=== PATIENT | male | born 1950 | race Caucasian/White ===

== ENCOUNTER 2018-11-23 03:51 | Emergency (ER) | payer MEDICARE, OTHER, SELFPAY ==
[2018-11-23] VITALS (12 sets, daily range): BP systolic 121–149; BP diastolic 64–77; PULSE 57–76; RESP 10–17; TEMP 36.6; O2SAT 94–98; BMI 33.2
--- NOTE | 2018-11-23 03:51 | ED_ITS ---
HPI - Chest Pain General Chief Complaint: Chest Pain Stated Complaint: chest pain Time Seen by Provider: 11/23/18 03:51 Source: patient Mode of arrival: ambulatory Limitations: no limitations History of Present Illness HPI narrative: Patient is a 68-year-old male with a known history of coronary artery disease. Many years ago he had a ?heart attack? and had 2 stents placed. He states he has not had any issues since then. It has not seen a special education paraprofessional since he moved to this area. He states that his primary doctor's been managing his cardiac medications. He states that over the past several weeks he has no ticed increasing chest discomfort with exertion. He states that it gets better when he rests. He has noticed that since this time and has progressively come to the point to where it happens every time he is exercising. Yesterday he saw his primary care doctor to discuss this. His primary doctor has set him up for a stress test next . He was also instructed that if his symptoms ever came on it did not go away or if they happen when he was at rest he should come into the emergency department. He states that prior to coming in he was woken from sleep with chest pressure. He states that he took a nitro and the symptoms went away for approximately 15 minutes and then they returned. He took another nitro and again they went away but then came back. He took his last nitro in the car on the way here to the emergency department. He also took 162 mg of aspirin prior to arrival. By the time I evaluated the patient he was asymptomatic. Related Data Home Medications Medication Instructions Recorded Confirmed aspirin 81 mg tablet,delayed 81 mg PO BID tab 06/25/18 06/25/18 release atorvastatin 40 mg tablet 40 mg PO DAILY 06/25/18 06/25/18 fluticasone propionate 50 1 spray NASAL DAILY 06/25/18 06/25/18 mcg/actuation nasal spray,suspension levothyroxine 125 mcg capsule 125 mcg PO DAILY 06/25/18 06/25/18 lisinopril 5 mg tablet 5 mg PO DAILY 06/25/18 06/25/18 loratadine 10 mg tablet 10 mg PO DAILY 06/25/18 06/25/18 metoprolol tartrate 25 mg tablet 25 mg PO BID 06/25/18 06/25/18 nitroglycerin ER 9 mg 9 mg PO .PRN cap 06/25/18 06/25/18 capsule,extended release omeprazole 20 mg capsule,delayed 20 mg PO DAILY 06/25/18 06/25/18 release tamsulosin 0.4 mg capsule 0.4 mg PO DAILY 06/25/18 06/25/18 Allergies Allergy/AdvReac Type Severity Reaction Status Date / Time crab Allergy Verified 06/25/18 11:01 hydrocodone Allergy Verified 06/25/18 11:01 Iodinated Contrast- Oral and Allergy Verified 11/23/18 04:02 IV Dye oxycodone Allergy Verified 06/25/18 11:01 Review of Systems Constitutional Denies fatigue and Denies headache(s) ENT Ears, Nose, Mouth, and Throat: Denies headache(s) Cardiovascular Reports chest pain, Denies syncope, Denies rapid heart rate, Denies edema, Denies palpitations and Denies dyspnea Respiratory Denies dyspnea Gastrointestinal Gastrointestinal: Denies abdominal pain, Denies nausea and Denies vomiting Musculoskeletal Denies myalgias and Denies arthralgias Integumentary/Breasts Denies rash Neurologic Denies confusion, Denies syncope and Denies headache(s) Psychiatric Denies confusion Endocrine Denies fatigue and Denies palpitations Hematologic/Lymphatic Denies easy bleeding and Denies easy bruising [facility] Medical History Coronary artery disease (Acute) Hypothyroidism (acquired) (Acute) Social History Smoking Status: Never smoker Social History Smoking Status: Never smoker Exam Initial Vital Signs Initial Vital Signs: Vital Signs Temperature 97.8 F 11/23/18 03:57 Pulse Rate 76 11/23/18 03:57 Respiratory Rate 16 11/23/18 03:57 Blood Pressure 149/74 H 11/23/18 03:57 Const General: cooperative, comfortable, well developed, well groomed and No acute distress Orientation: alert, awake and oriented x3 HENMT Head: normal to inspection and normocephalic Resp Effort & Inspection: normal respiratory effort Auscultation: clear to auscultation bilaterally Cardio Rate: regular rate Rhythm: regular rhythm Pulses: radial pulses present GI Inspection: non-distended Palpation: soft Skin Lesions: no lesions Rashes: no rashes Neuro General: alert, awake and oriented x3 Cognition: normal cognition Speech: speech normal Motor: muscle tone normal throughout Extrem General: normal to inspection and capillary refill normal Psych Appearance: grossly normal and well kempt Scores GCS Alejandro coma scale eye opening: Spontaneous [place] coma scale verbal response: Orientated [place] coma scale motor response: Obey commands Alejandro coma scale total score: 15 HEART Score Heart Score history: Highly Suspicious Heart Score EKG: Normal Heart Score Age: > or = 65 years old Heart Score risk factors: > 3 risk factors or hx of atherosclerotic disease Heart Score troponin: 1-3 times normal limit Heart Score Total: 7 Course Orders Ordered: ED Orders 11/23/18 03:53 XR chest 1V Stat EKG-12 Lead Stat 11/23/18 04:11 Basic Metabolic Panel Stat Complete Blood Count AUTO DIFF Stat Partial Thromboplastin Time Stat Prothrombin Time INR Stat Troponin I Stat Heparin Sodium/Dextrose (Heparin Drip) 25,000 unit in 500 mls @ 20 mls/hr IV CONT LAZARO; Protocol Last Admin: 11/23/18 05:15 Dose: 1,000 units/hr, 20 mls/hr Discontinued Medications Clopidogrel Bisulfate (Plavix) 300 mg PO NOW ONE Stop: 11/23/18 05:28 Heparin Sodium (Porcine) (Heparin) 5,000 unit IV NOW ONE Stop: 11/23/18 05:06 Last Admin: 11/23/18 05:15 Dose: 5,000 unit Metoprolol Tartrate (Lopressor) 25 mg PO NOW ONE Stop: 11/23/18 05:28 Vital Signs - 8 hr 11/23/18 03:57 11/23/18 04:30 11/23/18 05:03 Temperature 97.8 F 97.8 F Pulse Rate 76 67 67 Respiratory Rate 16 11 L 11 L Blood Pressure 149/74 H 149/74 H Blood Pressure [Left Arm] 121/69 Pulse Oximetry 97 97 11/23/18 05:26 Temperature Pulse Rate 63 Respiratory Rate 10 L Blood Pressure Blood Pressure [Left Arm] 145/70 H Pulse Oximetry 96 MDM - Chest Pain Lab Data Attestation: I reviewed the patient's lab results. Result diagrams: 11/23/18 04:11 11/23/18 04:11 Lab Results 11/23/18 11/23/18 11/23/18 Range/Units 04:11 04:11 04:11 WBC 7.4 (4.5-11.0) X10^3/uL RBC 4.97 (4.5-5.9) X10^6/uL Hgb 15.0 (13.5-17.5) g/dL Hct 43.3 (41-53) % MCV 87.2 (80-100) fL MCH 30.2 (26-34) PG MCHC 34.7 (30-36) % RDW 13.3 (11.6-14.8) % Plt Count 241 (150-400) X10^3/uL Neut % (Auto) 65.8 (50-75) % Lymph % (Auto) 24.9 L (25-40) % [place] % (Auto) 6.8 (3-14) % Eos % (Auto) 1.7 L (2-4) % Baso % (Auto) 0.8 (0-2) % Neut # (Auto) 4800 (6548-5242) /uL Lymph # (Auto) 1800 (5930-6383) /uL [place] # (Auto) 500 (0-900) /uL Eos # (Auto) 100 (0-450) /uL Baso # (Auto) 100 (0-100) /uL PT 11.8 (10.1-12.7) SECONDS INR 1.0 (0.9-1.3) APTT 31 (26.4-36.2) SECONDS Sodium 138 (137-145) mmol/L Potassium 3.8 (3.4-5.1) mmol/L Chloride 102 (98-107) mmol/L Carbon Dioxide 26 (22-32) mmol/L BUN 10 (9-20) mg/dL Creatinine 0.70 (0.66-1.25) mg/dL Estimated GFR > 60.0 (>60) mL/min BUN/Creatinine Ratio 14.3 (6-22) Glucose 166 H (80-110) mg/dL Calcium 9.3 (8.4-10.2) mg/dL Troponin I 0.057 H (0.01-0.034) ng/mL Imaging Data Chest x-ray: Attestation: I personally reviewed and interpreted this imaging study as follows: My impression: Normal size heart No pneumonia No acute pathology ECG Data Attestation: I personally reviewed and interpreted this ECG as follows: Prior ECG tracings: not available for review Interpretation: Sinus rhythm Ventricular rate is 74 Normal axis Normal QRS Normal QTC No ST T wave changes MDM Narrative Medical decision making narrative: Patient receive aspirin prior to arrival. He was chest pain-free when I evaluated him and has remained chest pain-free throughout his emergency department stay. His symptoms are concerning for ACS. He has essentially been giving himself stress test by exerting himself which causes the discomfort and then symptoms resolved when he stops. His troponin is slightly elevated. Given his history and his physical exam is elevated troponin patient was started on heparin. He has no ST elevations on his EKG. I discussed the case with Dr. Hopkins with Cardiology at [facility] who agrees to see the patient. He recommended starting the patient on Plavix and giving a dose of metoprolol which were ordered. I then discussed the case with Dr. Jasso with Internal Medicine who accepts the patient in transport. Patient is stable for transfer. I discussed transfer with the patient and his who is at bedside and they both expressed understanding and agreement. Discharge Plan Departure Patient Disposition: [facility] Clinical Impression: Non-ST elevation SC (NSTEMI) Prescriptions: No Action atorvastatin 40 mg tablet 40 mg PO DAILY RF: 0 aspirin [Adult Aspirin Regimen] 81 mg tablet,delayed release (DR/EC) 81 mg PO BID RF: 0 nitroglycerin 9 mg capsule, extended release 9 mg PO .PRN RF: 0 tamsulosin 0.4 mg capsule 0.4 mg PO DAILY RF: 0 omeprazole 20 mg capsule,delayed release(DR/EC) 20 mg PO DAILY RF: 0 lisinopril 5 mg tablet 5 mg PO DAILY RF: 0 fluticasone propionate [Flonase Allergy Relief] 50 mcg/actuation spray,suspension 1 spray NASAL DAILY RF: 0 loratadine [Allergy Relief (loratadine)] 10 mg tablet 10 mg PO DAILY RF: 0 metoprolol tartrate 25 mg tablet 25 mg PO BID RF: 0 levothyroxine 125 mcg capsule 125 mcg PO DAILY RF: 0
--- NOTE | 2018-11-23 03:53 | DI.RAD.S_ITS ---
PROCEDURE: XR CHEST 1V INDICATIONS: Chest pain TECHNIQUE: One view of the chest was acquired. COMPARISON: None. FINDINGS: Surgical changes and devices: None. Lungs and pleura: Lungs are clear. No pleural effusions or pneumothorax. Mediastinum: Mediastinal contours appear normal. Heart size is normal. Bones and chest wall: No suspicious bony lesions. Overlying soft tissues appear unremarkable. IMPRESSION: 1. No acute cardiopulmonary disease. Dictated by: Marcos Webster M.D. on 11/23/2018 at 9:31 Approved by: Marcos Webster M.D. on 11/23/2018 at 9:31
[2018-11-23 04:19] LABS: Add Manual Diff / Slide Review NO; Basophils Absolute Auto 100 /uL (0-100); Basophils Percent Auto 0.8 % (0-2); Eosinophils Absolute Auto 100 /uL (0-450); Eosinophils Percent Auto 1.7 % (2-4); Hematocrit 43.3 % (41-53); Lymphocytes Absolute Auto 1800 /uL (1100-4500); Lymphocytes Percent Auto 24.9 % (25-40); Mean Corpuscular HGB Conc 34.7 % (30-36); Mean Corpuscular Hemoglobin 30.2 PG (26-34); Mean Corpuscular Volume 87.2 fL (80-100); Monocytes Absolute Auto 500 /uL (0-900); Monocytes Percent Auto 6.8 % (3-14); Neutrophils Absolute Auto 4800 /uL (1500-7000); Neutrophils Percent Auto 65.8 % (50-75); Platelet Count 241 X10^3/uL (150-400); Red Blood Cell Count 4.97 X10^6/uL (4.5-5.9); Red Cell Distribution Width 13.3 % (11.6-14.8); White Blood Cell Count 7.4 X10^3/uL (4.5-11.0)
[2018-11-23 04:20] LABS: Prothrombin Time 11.8 SECONDS (10.1-12.7)
[2018-11-23 04:23] LABS: PTT Partial Thromboplastin Tim 31 SECONDS (26.4-36.2)
[2018-11-23 04:24] LABS: BUN Creatinine Ratio 14.3 (6-22); Blood Urea Nitrogen 10 mg/dL (9-20); Calcium 9.3 mg/dL (8.4-10.2); Carbon Dioxide 26 mmol/L (22-32); Chloride 102 mmol/L (98-107); Estimated Glomerular Filt Rate > 60.0 mL/min (>60); Glucose 166 mg/dL (80-110); HEMOLYSIS < 15 (0-50); Potassium 3.8 mmol/L (3.4-5.1); Sodium 138 mmol/L (137-145)
[2018-11-23 04:36] LABS: Troponin I 0.057 ng/mL (0.01-0.034)
[2018-11-23] MEDS: HEPARIN DRIP 25,000 UNIT/500 ML IV.SOLN 20 UNIT IV (05:15)
[2018-11-23] MEDS: HEPARIN 5,000 UNIT/ML VIAL 5000 UNIT IV (05:15)
[2018-11-23] MEDS: METOPROLOL IR 25 MG TABLET PO (05:31)
[2018-11-23] MEDS: CLOPIDOGREL 75 MG TABLET 300 MG PO (05:32)
--- NOTE | 2018-11-23 09:28 | PC.NURSE ---
Called [facility] at 0915 to give report and it is relayed that the nurse will call you back.
== END 2018-11-23 09:20 | disposition short-term general hospital (02) ==
PROVIDERS: Emergency Provider Emergency Medicine
DX: I21.4 Non-ST elevation (NSTEMI) myocardial infarction (principal); Z96.89 Presence of other specified functional implants
CPT/HCPCS: 36591; 71045; 80048; 84484; 85025; 85610; 85730; 93005; 96365; 96366; 96376; 99285; J1644

== ENCOUNTER → 2019-04-01 10:32 | Outpatient (CLI) | payer MEDICARE, OTHER, SELFPAY ==
[2019-04-01 11:24] LABS: Add Manual Diff / Slide Review NO; Basophils Absolute Auto 0 /uL (0-100); Basophils Percent Auto 0.6 % (0-2); Eosinophils Absolute Auto 100 /uL (0-450); Eosinophils Percent Auto 1.1 % (2-4); Hematocrit 46.9 % (41-53); Lymphocytes Absolute Auto 1500 /uL (1100-4500); Mean Corpuscular HGB Conc 34.1 % (30-36); Mean Corpuscular Hemoglobin 29.5 PG (26-34); Mean Corpuscular Volume 86.4 fL (80-100); Monocytes Absolute Auto 500 /uL (0-900); Monocytes Percent Auto 7.8 % (3-14); Neutrophils Absolute Auto 4000 /uL (1500-7000); Neutrophils Percent Auto 66.5 % (50-75); Platelet Count 256 X10^3/uL (150-400); Red Blood Cell Count 5.43 X10^6/uL (4.5-5.9); Red Cell Distribution Width 13.5 % (11.6-14.8); White Blood Cell Count 6.1 X10^3/uL (4.5-11.0)
[2019-04-01 12:02] LABS: Alanine Aminotransferase 27 IU/L (21-72); Albumin 4.4 g/dL (3.5-5.0); Albumin Globulin Ratio 1.6 (1.0-2.8); Alkaline Phosphatase 124 U/L (38-126); Aspartate Aminotransferase 23 IU/L (17-59); BUN Creatinine Ratio 17.1 (6-22); Bilirubin Total 0.9 mg/dL (0.2-1.3); Blood Urea Nitrogen 12 mg/dL (9-20); Calcium 9.8 mg/dL (8.4-10.2); Carbon Dioxide 27 mmol/L (22-32); Chloride 100 mmol/L (98-107); Cholesterol 105 mg/dL (140-199); Estimated Glomerular Filt Rate > 60.0 mL/min (>60); Globulin 2.7 g/dL (1.7-4.1); Glucose 106 mg/dL (80-110); HDL Cholesterol 29 mg/dL (40-60); HEMOLYSIS < 15 (0-50); LDL Cholesterol Calculated 54 mg/dL (<100); Sodium 140 mmol/L (137-145); Total Protein 7.1 g/dL (6.3-8.2); Triglycerides 108 mg/dL (35-150)
[2019-04-01 12:33] LABS: Thyroid Stimulating Hormone < 0.02 uIU/mL (0.47-4.68)
== END ==
PROVIDERS: Visit Provider Hospitalist
DX: E03.9 Hypothyroidism, unspecified (principal); I25.10 Atherosclerotic heart disease of native coronary artery without angina pectoris; E11.9 Type 2 diabetes mellitus without complications
CPT/HCPCS: 36415; 80053; 80061; 83036; 84443; 85025

== ENCOUNTER → 2019-04-30 11:09 | Outpatient (CLI) | payer MEDICARE, OTHER, SELFPAY ==
[2019-04-30 13:15] LABS: Thyroid Stimulating Hormone 0.03 uIU/mL (0.47-4.68)
== END ==
PROVIDERS: Visit Provider Hospitalist
DX: E03.9 Hypothyroidism, unspecified (principal); R94.6 Abnormal results of thyroid function studies
CPT/HCPCS: 36415; 84443

== ENCOUNTER → 2019-06-09 07:13 | Outpatient (CLI) | payer MEDICARE, OTHER, SELFPAY ==
[2019-06-09 09:07] LABS: Thyroid Stimulating Hormone 0.32 uIU/mL (0.47-4.68)
== END ==
PROVIDERS: PCP Nurse Practitioner Family; Visit Provider Nurse Practitioner Family
DX: E03.9 Hypothyroidism, unspecified (principal)
CPT/HCPCS: 36415; 84443

== ENCOUNTER → 2019-07-08 10:41 | Outpatient (CLI) | payer MEDICARE, OTHER, SELFPAY ==
[2019-07-08 12:36] LABS: TSH w/ Reflex to FT4 0.59 uIU/mL (0.47-4.68); Thyroid Stimulating Hormone 0.58 uIU/mL (0.47-4.68)
== END ==
PROVIDERS: Nurse Practitioner Family; PCP Family Medicine; Visit Provider Family Medicine
DX: E03.9 Hypothyroidism, unspecified (principal)
CPT/HCPCS: 36415; 84443

== ENCOUNTER 2019-09-10 08:03 | Emergency (ER) | payer MEDICARE, OTHER, SELFPAY ==
[2019-09-10 08:00] VITALS: BP 166/87; PULSE 110; RESP 19; TEMP 37; O2SAT 97
[2019-09-10 08:18] LABS: Bacteria Urine None Seen; RBC Urine None Seen (0-5/HPF); WBC Urine None Seen (0-5/HPF)
[2019-09-10 08:19] LABS: Appearance Urine UA CLEAR; Bilirubin Urine UA NEGATIVE (NEGATIVE); Color Urine UA YELLOW; Glucose Urine UA NEGATIVE (Negative); Ketones Urine UA NEGATIVE (NEGATIVE); Leukocyte Esterase Urine UA NEGATIVE (NEGATIVE); Nitrite Urine UA NEGATIVE (Negative); Occult Blood Urine UA TRACE-LYSED (Negative); Protein Urine UA NEGATIVE (Negative); Urobilinogen Urine UA 0.2 E.U./dL (0.2); pH Urine UA 7.5 (4.5-8.0)
--- NOTE | 2019-09-10 08:19 | ED_ITS ---
HPI - General Adult General Chief complaint: Hypertension Stated complaint: HTN Time Seen by Provider: 09/10/19 08:04 Source: patient Mode of arrival: Ambulatory Limitations: no limitations History of Present Illness HPI narrative: 68-year-old male with a history of hypertension coronary artery disease. Had 1 prior episode of atrial fibrillation after knee surgery that was converted with medication. Is on Brilinta. States that he woke up this morning he was lying on his right-sided hurt his pulse in his right ear. He states that it felt like it was fast. He went took his blood pressure. Was elevated also states that his heart rate was in the 130s. No chest pain. No shortness of breath. He normally takes is blood pressure medicine in the morning. Called EMS him in for evaluation. Related Data Home Medications Medication Instructions Recorded Confirmed aspirin 81 mg tablet,delayed 81 mg PO BID tab 06/25/18 07/08/19 release fluticasone propionate 50 1 spray NASAL DAILY 06/25/18 07/08/19 mcg/actuation nasal spray,suspension loratadine 10 mg tablet 10 mg PO DAILY 06/25/18 07/08/19 atorvastatin 80 mg tablet 80 mg PO BEDTIME 04/01/19 07/08/19 lisinopril 10 mg tablet 10 mg PO DAILY 04/01/19 07/08/19 nitroglycerin 0.4 mg sublingual 0.4 mg SL Q5-15M PRN 04/01/19 07/08/19 tablet ticagrelor 90 mg tablet 90 mg PO BID 04/01/19 07/08/19 metoprolol tartrate 25 mg tablet 25 mg PO DAILY tab 07/08/19 07/08/19 Previous Rx's Medication Instructions Recorded omeprazole 20 mg capsule,delayed 20 mg PO DAILY #30 cap 04/01/19 release levothyroxine 75 mcg tablet 75 mcg PO DAILY #90 tab 08/06/19 Allergies Allergy/AdvReac Type Severity Reaction Status Date / Time crab Allergy Verified 07/08/19 09:54 hydrocodone Allergy Verified 07/08/19 09:54 Iodinated Contrast Media Allergy Verified 07/08/19 09:54 oxycodone Allergy Verified 07/08/19 09:54 Review of Systems Constitutional Constitutional: Denies fever(s) and Denies headache(s) ENT Ears, Nose, Mouth, and Throat: Denies headache(s) Cardiovascular Cardiovascular: Denies chest pain, Reports rapid heart rate, Denies irregular heart rhythm, Reports palpitations, Denies dyspnea and Denies dyspnea on exertion Respiratory Respiratory: Denies dyspnea and Denies dyspnea on exertion Gastrointestinal Gastrointestinal: Denies abdominal pain, Denies nausea and Denies vomiting Musculoskeletal Musculoskeletal: Denies myalgias and Denies arthralgias Integumentary/Breasts Skin/Breast: Denies rash Neurologic Neurologic: Denies behavioral changes and Denies headache(s) Psychiatric Psychiatric: Denies behavioral changes Endocrine Endocrine: Reports palpitations Patient History Medical History Acne (Inactive) Actinic keratosis (Chronic ~2014) Ankylosing spondylitis (Acute) Chicken pox (Resolved) Chronic back pain (Chronic ~1974) Coronary artery disease (Acute) GERD (gastroesophageal reflux disease) (Chronic ~1999) Hearing loss (Chronic ~1970) Heel spur (Chronic ~2018) Hemorrhoid (Inactive ~1989) Hypothyroidism (acquired) (Acute) Osteoarthritis (Chronic ~2009) Plantar warts (Inactive) Seasonal allergies (Chronic ~1950) Tinnitus (Chronic ~1970) Vertigo (Inactive ~2010) Vision disorder (Chronic) Family History (Updated 04/30/19 @ 21:53 by Johnna Orantes) Mother Hypertension History of heart disease Dementia Father Hypertension History of heart disease Sister Diabetes mellitus Grandfather History of heart disease Grandmother History of heart disease Social History Smoking Status: Never smoker Smoking Status: Never smoker alcohol intake frequency: 0-2 drinks per day Substance Use Type: does not use Exam Initial Vital Signs Initial Vital Signs: Vital Signs Temperature 98.6 F 09/10/19 08:00 Pulse Rate 110 H 09/10/19 08:00 Respiratory Rate 19 09/10/19 08:00 Blood Pressure 166/87 H 09/10/19 08:00 Pulse Oximetry 97 09/10/19 08:00 Const General: cooperative and comfortable Limitations: mental status not altered Resp Effort & Inspection: normal respiratory effort Auscultation: clear to auscultation bilaterally Cardio Rate: tachycardic Rhythm: regular rhythm Pulses: radial pulses present GI Inspection: non-distended Palpation: soft Skin Lesions: no lesions Rashes: no rashes Neuro General: alert and awake Cognition: normal cognition Speech: speech normal Motor: muscle tone normal throughout Extrem General: capillary refill normal Psych Appearance: grossly normal and well kempt Scores GCS Alejandro coma scale eye opening: Spontaneous [place] coma scale verbal response: Orientated [place] coma scale motor response: Obey commands [place] coma scale total score: 15 Course Orders Ordered: ED Orders 09/10/19 08:05 EKG-12 Lead Stat 09/10/19 08:08 Urinalysis and Microscopic Stat 09/10/19 08:18 Complete Blood Count AUTO DIFF Stat Comprehensive Metabolic Panel Stat Lipase Stat Troponin I Stat Discontinued Medications Lisinopril (Zestril) 10 mg PO NOW ONE Stop: 09/10/19 08:21 Last Admin: 09/10/19 08:29 Dose: 10 mg Documented by: PEGGY Metoprolol Succinate (Toprol Xl) 25 mg PO NOW ONE Stop: 09/10/19 08:21 Last Admin: 09/10/19 08:29 Dose: 25 mg Documented by: PEGGY Vital Signs Vital signs: Vital Signs - 8 hr 09/10/19 08:00 09/10/19 09:02 09/10/19 09:03 Temperature 98.6 F Pulse Rate 110 H 103 H 109 H Respiratory Rate 19 18 Blood Pressure 166/87 H 158/78 H Blood Pressure [Left Arm] 154/78 H Pulse Oximetry 97 96 Medical Decision Making Lab Data Lab results reviewed: Yes I reviewed the patient's lab results. Result diagrams: 09/10/19 08:18 09/10/19 08:18 Labs: Lab Results 09/10/19 09/10/19 09/10/19 Range/Units 08:08 08:18 08:18 WBC 9.5 (4.5-11.0) X10^3/uL RBC 5.37 (4.5-5.9) X10^6/uL Hgb 16.2 (13.5-17.5) g/dL Hct 47.5 (41-53) % MCV 88.4 (80-100) fL MCH 30.2 (26-34) PG MCHC 34.1 (30-36) % RDW 14.2 (11.6-14.8) % Plt Count 232 (150-400) X10^3/uL Neut % (Auto) 86.1 H (50-75) % Lymph % (Auto) 6.8 L (25-40) % [place] % (Auto) 6.7 (3-14) % Eos % (Auto) 0.1 L (2-4) % Baso % (Auto) 0.3 (0-2) % Neut # (Auto) 8200 H (1776-1887) /uL Lymph # (Auto) 600 L (6857-7309) /uL [place] # (Auto) 600 (0-900) /uL Eos # (Auto) 0 (0-450) /uL Baso # (Auto) 0 (0-100) /uL Sodium 143 (137-145) mmol/L Potassium 3.9 (3.4-5.1) mmol/L Chloride 105 (98-107) mmol/L Carbon Dioxide 25 (22-32) mmol/L BUN 12 (9-20) mg/dL Creatinine 0.70 (0.66-1.25) mg/dL Estimated GFR > 60.0 (>60) mL/min BUN/Creatinine Ratio 17.1 (6-22) Glucose 129 H (80-110) mg/dL Calcium 10.1 (8.4-10.2) mg/dL Total Bilirubin 0.7 (0.2-1.3) mg/dL AST 33 (17-59) IU/L ALT 27 (<50) IU/L Alkaline Phosphatase 98 (38-126) U/L Troponin I < 0.012 (0.01-0.034) ng/mL Total Protein 8.0 (6.3-8.2) g/dL Albumin 4.7 (3.5-5.0) g/dL Globulin 3.3 (1.7-4.1) g/dL Albumin/Globulin Ratio 1.4 (1.0-2.8) Lipase 80 (23-300) U/L Urine Color Yellow Urine Appearance Clear Urine pH 7.5 (4.5-8.0) Ur Specific [place] 1.010 (1.000-1.035) Urine Protein Negative (Negative) Urine Glucose (UA) Negative (Negative) g/dL Urine Ketones Negative (NEGATIVE) Urine Occult Blood Trace-lysed (Negative) Urine Nitrate Negative (Negative) Urine Bilirubin Negative (NEGATIVE) Urine Urobilinogen 0.2 (0.2) E.U./dL Ur Leukocyte Esterase Negative (NEGATIVE) Urine RBC None seen (0-5/HPF) Urine WBC None seen (0-5/HPF) Urine Bacteria None seen (None) Ur Culture Indicated? Cult not indicated Micro UA Comment Microscopic normal ECG Data Attestation: I personally reviewed and interpreted this ECG as follows: Prior ECG tracings: not available for review Interpretation: Sinus tachycardia Ventricular rate of 107 First degree AV block P.r.n. oval 212 milliseconds Left axis deviation Normal QRS Normal QTC No ST T wave changes MDM Narrative Medical decision making narrative: Patient is slightly tachycardic however not in atrial fibrillation. He was hypertensive upon arrival. He did not take his morning blood pressure medications. He was given his metoprolol and lisinopril. This did decrease his heart rate and his blood pressure. Labs unremarkable. Low suspicion for ACS. We did discuss that he should talk with his primary provider and also his specification writer to see whether not a Holter monitor would be appropriate. He expressed understanding and agreement with plan. Discharge Plan Departure Patient Disposition: Home Clinical Impression: Palpitations Hypertension Qualifiers: Hypertension type: unspecified Qualified Code(s): I10 - Essential (primary) hypertension Instructions: DI for High Blood Pressure Activity Restrictions/Additional Instructions: Continue to take all of your medications as directed. Contact your primary provider for a follow-up. Talk with your specification writer about the indications for a Holter monitor. Return to the emergency department for any new or worsening symptoms Prescriptions: No Action aspirin [Adult Aspirin Regimen] 81 mg tablet,delayed release (DR/EC) 81 mg PO BID RF: 0 fluticasone propionate [Flonase Allergy Relief] 50 mcg/actuation spray,suspension 1 spray NASAL DAILY RF: 0 loratadine [Allergy Relief (loratadine)] 10 mg tablet 10 mg PO DAILY RF: 0 metoprolol tartrate 25 mg tablet 25 mg PO DAILY RF: 0 levothyroxine 75 mcg tablet 75 mcg PO DAILY Qty: 90 RF: 1 atorvastatin 80 mg tablet 80 mg PO BEDTIME RF: 0 Brilinta 90 mg tablet 90 mg PO BID RF: 0 lisinopril 10 mg tablet 10 mg PO DAILY RF: 0 nitroglycerin 0.4 mg tablet, sublingual 0.4 mg SL Q5-15M PRNRF: 0 omeprazole 20 mg capsule,delayed release(DR/EC) 20 mg PO DAILY Qty: 30 RF: 0 Referrals: Nolan Smith, [Primary Care Provider] -
[2019-09-10 08:29] LABS: Add Manual Diff / Slide Review NO; Basophils Absolute Auto 0 /uL (0-100); Basophils Percent Auto 0.3 % (0-2); Eosinophils Absolute Auto 0 /uL (0-450); Eosinophils Percent Auto 0.1 % (2-4); Hematocrit 47.5 % (41-53); Hemoglobin 16.2 g/dL (13.5-17.5); Lymphocytes Absolute Auto 600 /uL (1100-4500); Lymphocytes Percent Auto 6.8 % (25-40); Mean Corpuscular HGB Conc 34.1 % (30-36); Mean Corpuscular Hemoglobin 30.2 PG (26-34); Mean Corpuscular Volume 88.4 fL (80-100); Monocytes Absolute Auto 600 /uL (0-900); Monocytes Percent Auto 6.7 % (3-14); Neutrophils Absolute Auto 8200 /uL (1500-7000); Neutrophils Percent Auto 86.1 % (50-75); Platelet Count 232 X10^3/uL (150-400); Red Blood Cell Count 5.37 X10^6/uL (4.5-5.9); Red Cell Distribution Width 14.2 % (11.6-14.8); White Blood Cell Count 9.5 X10^3/uL (4.5-11.0)
[2019-09-10] MEDS: METOPROLOL ER 25 MG TABLET PO (08:29)
[2019-09-10] MEDS: lisinopriL 10 MG TABLET PO (08:29)
[2019-09-10 08:36] LABS: Culture Indicated Urine Cult Not Indicated; Urine Comments Microscopic Normal
[2019-09-10 08:40] LABS: Alanine Aminotransferase 27 IU/L (<50); Albumin 4.7 g/dL (3.5-5.0); Albumin Globulin Ratio 1.4 (1.0-2.8); Alkaline Phosphatase 98 U/L (38-126); Aspartate Aminotransferase 33 IU/L (17-59); BUN Creatinine Ratio 17.1 (6-22); Bilirubin Total 0.7 mg/dL (0.2-1.3); Blood Urea Nitrogen 12 mg/dL (9-20); Calcium 10.1 mg/dL (8.4-10.2); Carbon Dioxide 25 mmol/L (22-32); Chloride 105 mmol/L (98-107); Estimated Glomerular Filt Rate > 60.0 mL/min (>60); Globulin 3.3 g/dL (1.7-4.1); Glucose 129 mg/dL (80-110); HEMOLYSIS < 15 (0-50); Lipase 80 U/L (23-300); Potassium 3.9 mmol/L (3.4-5.1); Sodium 143 mmol/L (137-145)
[2019-09-10 08:51] LABS: Troponin I < 0.012 ng/mL (0.01-0.034)
[2019-09-10 09:02] VITALS: BP 158/78; PULSE 103
[2019-09-10 09:03] VITALS: BP 154/78; PULSE 109; RESP 18; O2SAT 96
[2019-09-10 09:30] VITALS: BP 134/69; PULSE 93; RESP 16; O2SAT 94
== END 2019-09-10 09:31 | disposition home or self-care (01) ==
PROVIDERS: Emergency Provider Emergency Medicine; PCP Family Medicine
DX: I10 Essential (primary) hypertension (principal); R00.2 Palpitations
CPT/HCPCS: 36415; 80053; 81001; 83690; 84484; 85025; 93005; 99284

== ENCOUNTER → 2019-09-11 10:09 | Outpatient (CLI) | payer MEDICARE, OTHER, SELFPAY ==
[2019-09-11 12:14] LABS: TSH w/ Reflex to FT4 0.65 uIU/mL (0.47-4.68)
== END ==
PROVIDERS: PCP Family Medicine; Referring Provider Family Medicine; Visit Provider Family Medicine
DX: E03.9 Hypothyroidism, unspecified (principal)
CPT/HCPCS: 36415; 84443

== ENCOUNTER → 2019-12-01 13:12 | Outpatient (CLI) | payer MEDICARE, OTHER, SELFPAY ==
[2019-12-01 15:23] LABS: TSH w/ Reflex to FT4 1.37 uIU/mL (0.47-4.68)
== END ==
PROVIDERS: PCP Family Medicine; Referring Provider Family Medicine; Visit Provider Family Medicine
DX: Z12.5 Encounter for screening for malignant neoplasm of prostate (principal); E03.9 Hypothyroidism, unspecified
CPT/HCPCS: 36415; 84153; 84443; G0103

== ENCOUNTER → 2020-01-09 09:11 | Outpatient (CLI) | payer MEDICARE, OTHER, SELFPAY ==
[2020-01-09 10:15] LABS: Hemoglobin A1C% w Est Avg Glu 6.3 % (4.0-6.0)
[2020-01-09 10:23] LABS: Alanine Aminotransferase 30 IU/L (<50); Albumin 4.5 g/dL (3.5-5.0); Albumin Globulin Ratio 1.6 (1.0-2.8); Alkaline Phosphatase 66 U/L (38-126); Aspartate Aminotransferase 33 IU/L (17-59); BUN Creatinine Ratio 24.2 (6-22); Bilirubin Total 0.6 mg/dL (0.2-1.3); Blood Urea Nitrogen 15 mg/dL (9-20); Calcium 9.8 mg/dL (8.4-10.2); Carbon Dioxide 30 mmol/L (22-32); Chloride 101 mmol/L (98-107); Estimated Glomerular Filt Rate > 60.0 mL/min (>60); Globulin 2.8 g/dL (1.7-4.1); Glucose 116 mg/dL (80-110); HEMOLYSIS < 15 (0-50); Potassium 4.2 mmol/L (3.4-5.1); Sodium 137 mmol/L (137-145); Total Protein 7.3 g/dL (6.3-8.2)
[2020-01-09 10:38] LABS: Free T4, Direct Thyroxine 0.84 ng/dL (0.78-2.19)
[2020-01-09 10:52] LABS: Thyroid Stimulating Hormone 1.51 uIU/mL (0.47-4.68)
== END ==
PROVIDERS: PCP Family Medicine; Referring Provider Family Medicine; Visit Provider Family Medicine
DX: B35.9 Dermatophytosis, unspecified (principal); R73.9 Hyperglycemia, unspecified
CPT/HCPCS: 36415; 80053; 83036; 84439; 84443

== ENCOUNTER → 2020-05-04 09:22 | Outpatient (CLI) | payer MEDICARE, OTHER, SELFPAY ==
[2020-05-04 11:12] LABS: Alanine Aminotransferase 39 IU/L (<50); Albumin 4.3 g/dL (3.5-5.0); Albumin Globulin Ratio 1.5 (1.0-2.8); Alkaline Phosphatase 70 U/L (38-126); Aspartate Aminotransferase 41 IU/L (17-59); BUN Creatinine Ratio 20.3 (6-22); Bilirubin Total 0.6 mg/dL (0.2-1.3); Blood Urea Nitrogen 14 mg/dL (9-20); Calcium 9.6 mg/dL (8.4-10.2); Carbon Dioxide 30 mmol/L (22-32); Chloride 102 mmol/L (98-107); Cholesterol 122 mg/dL (140-199); Estimated Glomerular Filt Rate > 60.0 mL/min (>60); Globulin 2.8 g/dL (1.7-4.1); Glucose 118 mg/dL (80-110); HDL Cholesterol 27 mg/dL (40-60); HEMOLYSIS < 15 (0-50); LDL Cholesterol Calculated 60 mg/dL (<100); Potassium 4.1 mmol/L (3.4-5.1); Sodium 139 mmol/L (137-145); Total Protein 7.1 g/dL (6.3-8.2); Triglycerides 175 mg/dL (35-150)
== END ==
PROVIDERS: PCP Family Medicine; Referring Provider Internal Medicine Cardiovascular Disease; Visit Provider Internal Medicine Cardiovascular Disease
DX: E78.5 Hyperlipidemia, unspecified (principal)
CPT/HCPCS: 36415; 80053; 80061

== ENCOUNTER → 2020-06-01 13:31 | Outpatient (CLI) | payer MEDICARE, OTHER, SELFPAY ==
--- NOTE | 2020-06-01 13:33 | DI.RAD.S_ITS ---
PROCEDURE: XR CERVICAL SPINE 2V OR 3V INDICATIONS: Progressive neck pain TECHNIQUE: 3 view(s) of the cervical spine were acquired. COMPARISON: None. FINDINGS: Bones: No fractures or dislocations to the T1 level. Note is made of anterior bridging osteophytes, partial or complete, between C2 and C7. The osseous bridging is more prominent over the lower half of the cervical spine. The lateral masses of C1 appear intact on the odontoid view. No suspicious bony lesions. Soft tissues: No prevertebral soft tissue swelling. IMPRESSION: Bridging osteophytes as discussed, which increases risk of significant spinal column fracture in the area of immobility in the setting of trauma. Ankylosing spondylitis is not present but rather DISH is the likely cause. As discussed this pattern of reduced mobility along the cervical spine does increase risk of significant fracture in the setting of trauma. No trauma is currently seen. Dictated by: Ernie Lane M.D. on 06/01/2020 at 14:13 Approved by: Ernie Lane M.D. on 06/01/2020 at 14:15
--- NOTE | 2020-06-01 13:33 | DI.RAD.S_ITS ---
PROCEDURE: XR LUMBAR SPINE 2-3V INDICATIONS: Progressive neck pain TECHNIQUE: 3 views of the lumbar spine were acquired. COMPARISON: None. FINDINGS: Bones: 5 [id number] vertebrae are present. There is normal bony alignment but also noted is a pattern of bridging osteophytes at the low thoracic spine and the upper lumbar spine, and between L3 and L4 and to a lesser degree L4 and L5 superimposed degenerative disc disease and facet osteoarthritis from L3 inferiorly likely is associated with significant spinal and foraminal stenosis. No vertebral body compression fractures. No suspicious bony lesions. Soft tissues: Overlying bowel gas pattern is normal. No suspicious soft tissue calcifications. IMPRESSION: Bridging osteophytes, superimposed upon by degenerative disc disease and facet osteoarthritis over the lower half of the LS spine. A combination of DISH and degenerative osteoarthritis appears present. Please also refer to the dedicated cervical spine plain film report from today. Dictated by: Ernie Lane M.D. on 06/01/2020 at 14:15 Approved by: Ernie Lane M.D. on 06/01/2020 at 14:17
== END ==
PROVIDERS: PCP Family Medicine; Referring Provider Family Medicine; Visit Provider Family Medicine
DX: M54.2 Cervicalgia (principal); M51.9 Unspecified thoracic, thoracolumbar and lumbosacral intervertebral disc disorder; M51.36 Other intervertebral disc degeneration, lumbar region; M47.816 Spondylosis without myelopathy or radiculopathy, lumbar region; E03.9 Hypothyroidism, unspecified; M48.9 Spondylopathy, unspecified; R73.9 Hyperglycemia, unspecified
CPT/HCPCS: 72040; 72110

== ENCOUNTER → 2020-11-09 11:54 | Outpatient (CLI) | payer MEDICARE, OTHER, SELFPAY ==
[2020-11-09 12:03] LABS: Bacteria Urine None Seen; RBC Urine None Seen (0-5/HPF); WBC Urine None Seen (0-5/HPF)
[2020-11-09 13:08] LABS: Add Manual Diff / Slide Review NO; Basophils Absolute Auto 0 /uL (0-100); Basophils Percent Auto 0.5 % (0-2); Eosinophils Absolute Auto 100 /uL (0-450); Eosinophils Percent Auto 1.9 % (2-4); Hematocrit 43.8 % (41-53); Lymphocytes Absolute Auto 1700 /uL (1100-4500); Lymphocytes Percent Auto 29.5 % (25-40); Mean Corpuscular HGB Conc 34.2 % (30-36); Mean Corpuscular Hemoglobin 30.3 PG (26-34); Mean Corpuscular Volume 88.5 fL (80-100); Monocytes Absolute Auto 400 /uL (0-900); Monocytes Percent Auto 7.4 % (3-14); Neutrophils Absolute Auto 3400 /uL (1500-7000); Neutrophils Percent Auto 60.7 % (50-75); Platelet Count 258 X10^3/uL (150-400); Red Blood Cell Count 4.94 X10^6/uL (4.5-5.9); Red Cell Distribution Width 13.4 % (11.6-14.8); White Blood Cell Count 5.7 X10^3/uL (4.5-11.0)
[2020-11-09 13:15] LABS: Hemoglobin A1C% w Est Avg Glu 6.7 % (4.0-6.0)
[2020-11-09 13:37] LABS: Alanine Aminotransferase 30 IU/L (<50); Albumin 4.5 g/dL (3.5-5.0); Albumin Globulin Ratio 1.8 (1.0-2.8); Alkaline Phosphatase 78 U/L (38-126); Aspartate Aminotransferase 33 IU/L (17-59); BUN Creatinine Ratio 17.7 (6-22); Bilirubin Total 0.4 mg/dL (0.2-1.3); Blood Urea Nitrogen 11 mg/dL (9-20); Calcium 9.8 mg/dL (8.4-10.2); Carbon Dioxide 25 mmol/L (22-32); Chloride 103 mmol/L (98-107); Cholesterol 125 mg/dL (140-199); Estimated Glomerular Filt Rate > 60.0 mL/min (>60); Globulin 2.5 g/dL (1.7-4.1); Glucose 130 mg/dL (80-110); HDL Cholesterol 33 mg/dL (40-60); HEMOLYSIS < 15 (0-50); LDL Cholesterol Calculated 69 mg/dL (<100); Potassium 4.1 mmol/L (3.4-5.1); Sodium 139 mmol/L (137-145); Triglycerides 113 mg/dL (35-150)
[2020-11-09 13:45] LABS: Free T4, Direct Thyroxine 0.83 ng/dL (0.78-2.19)
[2020-11-09 13:59] LABS: Prostate Specific Antigen 0.938 ng/mL (0.10-4.00); Thyroid Stimulating Hormone 1.02 uIU/mL (0.47-4.68)
[2020-11-09 14:18] LABS: Appearance Urine UA CLEAR; Bilirubin Urine UA NEGATIVE (NEGATIVE); Color Urine UA YELLOW; Glucose Urine UA NEGATIVE (Negative); Ketones Urine UA NEGATIVE (NEGATIVE); Leukocyte Esterase Urine UA NEGATIVE (NEGATIVE); Nitrite Urine UA NEGATIVE (Negative); Occult Blood Urine UA TRACE-LYSED (Negative); Protein Urine UA NEGATIVE (Negative); Specific Gravity Urine UA 1.015 (1.000-1.035); Urobilinogen Urine UA 0.2 E.U./dL (0.2)
[2020-11-09 14:33] LABS: Culture Indicated Urine Cult Not Indicated; Urine Comments Microscopic Normal
== END ==
PROVIDERS: PCP Family Medicine; Referring Provider Family Medicine; Visit Provider Family Medicine
DX: E03.9 Hypothyroidism, unspecified (principal); R73.9 Hyperglycemia, unspecified; Z00.01 Encounter for general adult medical examination with abnormal findings; I25.10 Atherosclerotic heart disease of native coronary artery without angina pectoris; N40.0 Benign prostatic hyperplasia without lower urinary tract symptoms
CPT/HCPCS: 36415; 80053; 80061; 81001; 83036; 84153; 84439; 84443; 85025

== ENCOUNTER 2020-11-27 04:08 | Emergency (ER) | payer MEDICARE, OTHER, SELFPAY ==
--- NOTE | 2020-11-27 04:15 | DI.RAD.S_ITS ---
PROCEDURE: XR CHEST 1V INDICATIONS: chest pain TECHNIQUE: One view of the chest was acquired. COMPARISON: [facility], CR, XR CHEST 1V, 11/23/2018, 3:57. FINDINGS: Surgical changes and devices: Overlying EKG wires. Lungs and pleura: Lungs are clear. No pleural effusions or pneumothorax. Mediastinum: Mediastinal contours appear normal. Heart size is normal. Bones and chest wall: No suspicious bony lesions. Overlying soft tissues appear unremarkable. IMPRESSION: No evidence of an acute cardiopulmonary abnormality. Agree with preliminary report. Dictated by: Rich Tapia D.O. on 11/27/2020 at 8:12 Approved by: Rich Tapia D.O. on 11/27/2020 at 8:13
--- NOTE | 2020-11-27 04:20 | ED_ITS ---
HPI - Chest Pain General Chief Complaint: Chest Pain Stated Complaint: Chest pain Time Seen by Provider: 11/27/20 04:15 Source: patient and EMS Mode of arrival: Ambulatory Limitations: no limitations History of Present Illness HPI narrative: Patient is a 70-year-old male who has a history of coronary artery disease hypertension hyperlipidemia presenting with chest pain. He states that he took singular for the 1st time his to help with seasonal allergies around 8:00 p.m.. He then around midnight started having bilateral rib pain. He is unable to get comfortable pain intensified took nitroglycerin. We took nitroglycerin he got really sweaty and lightheaded initial SBP when EMS arrived was 98 he received IV fluids and now is overall feeling better. He states that his chest pain now is dull and achy. It is nonradiating. He denies any shortness of breath. He has no nausea or vomiting. MD complaint: chest pain Related Data Home Medications Medication Instructions Recorded Confirmed aspirin 81 mg tablet,delayed 81 mg PO BID tab 06/25/18 11/09/20 release fluticasone propionate 50 1 spray NASAL DAILY 06/25/18 11/09/20 mcg/actuation nasal spray,suspension loratadine 10 mg tablet 10 mg PO DAILY 06/25/18 11/09/20 lisinopril 10 mg tablet 10 mg PO DAILY 04/01/19 11/09/20 metoprolol succinate 25 mg mg PO 01/09/20 11/09/20 tablet,extended release 24 hr Previous Rx's Medication Instructions Recorded omeprazole 20 mg capsule,delayed 20 mg PO DAILY #30 cap 04/01/19 release ketoconazole 2 % topical cream 1 applictn TOP BID #30 gram 01/09/20 levothyroxine 50 mcg tablet See Rx Instructions .ROUTE 04/13/20 .COMPLEX #90 tab montelukast 10 mg tablet 10 mg PO BEDTIME #30 tab 11/22/20 nitroglycerin 0.4 mg sublingual 0.4 mg SL Q5-15M PRN #20 tab 11/22/20 tablet atorvastatin 80 mg tablet 80 mg PO BEDTIME #90 tab 11/23/20 Allergies Allergy/AdvReac Type Severity Reaction Status Date / Time crab Allergy Verified 11/09/20 11:09 hydrocodone Allergy Verified 11/09/20 11:09 Iodinated Contrast Media Allergy Verified 11/09/20 11:09 oxycodone Allergy Verified 11/09/20 11:09 Review of Systems Review of Systems Narrative: GENERAL: Denies chills, fatigue, malaise, fever, sweats, travel HEENT: Denies sinus pain, ear pain, sore throat, difficulty swallowing, neck pain RESPIRATORY: Denies dyspnea, cough, wheezing, hemoptysis, sputum. CARDIOVASCULAR: See HPI GASTROINTESTINAL: Denies nausea, vomiting, abdominal pain, diarrhea, constipation, melena. : Denies dysuria, frequency, incontinence, hematuria, urinary retention, flank pain. MUSCULOSKELETAL: Denies weakness, joint pain, or bony pain SKIN: No rash, no erythema, no pruritus NEUROLOGIC: Denies weakness, dizziness, headache, numbness, change in speech, confusion PSYCHIATRIC: No concerning psychosocial issues. 12 point review of systems is negative except for those stated above and HPI Patient History Medical History Acne Actinic keratosis (~2014) Chicken pox Chronic back pain (~1974) Coronary artery disease DISH (diffuse idiopathic skeletal hyperostosis) Encounter for well adult exam with abnormal findings Encounter for well adult exam with abnormal findings GERD (gastroesophageal reflux disease) (~1999) Hearing loss (~1970) Heel spur (~2018) Hemorrhoid (~1989) Hyperglycemia Hypothyroidism (acquired) Osteoarthritis (~2009) Plantar warts Seasonal allergies (~1950) Tinea Tinnitus (~1970) Vertigo (~2010) Vision disorder Surgical History Anesthesia Heel spur History of appendectomy History of heart artery stent History of knee surgery (~2010) History of tonsillectomy Family History Mother Hypertension History of heart disease Dementia Father Hypertension History of heart disease Sister Diabetes mellitus Grandfather History of heart disease Grandmother History of heart disease Social History Smoking Status: Never smoker Smoking Status: Never smoker alcohol intake frequency: 0-2 drinks per day Substance Use Type: does not use Exam Initial Vital Signs Initial Vital Signs: Vital Signs Temperature 97.1 F L 11/27/20 04:25 Pulse Rate 66 11/27/20 04:25 Respiratory Rate 17 11/27/20 04:25 Blood Pressure 137/64 11/27/20 04:25 Pulse Oximetry 99 11/27/20 04:25 GENERAL: Alert well-appearing 70-year-old male HEENT: Head atraumatic,EOMI, pupils reactive, face symmetric, moist mucous membranes CARDIOVASCULAR: Regular rate and rhythm without murmurs, rubs or gallops. RESPIRATORY: Breath sounds equal bilaterally, no wheezes rales or rhonchi. ABDOMEN: Soft, nontender. Normoactive bowel sounds all 4 quadrants. No guarding or rebound. EXTREMITIES: Normal range of motion, no clubbing or edema. Neurovascularly i ntact NEUROLOGICAL: Alert and oriented x4.Normal gait and speech. Cranial nerves II through XII grossly intact. SKIN: Warm, dry, no laceration, no petechiae, no rashes or lesions. Course Orders Ordered: ED Orders 11/27/20 04:15 XR chest 1V Stat EKG-12 Lead Stat 11/27/20 04:20 Complete Blood Count AUTO DIFF Stat Comprehensive Metabolic Panel Stat Lipase Stat Troponin & CK Cardiac Panel Stat 11/27/20 06:20 EKG-12 Lead Stat 11/27/20 06:23 Troponin I Stat Vital Signs Vital signs: Vital Signs - 8 hr 11/27/20 04:25 11/27/20 06:41 11/27/20 06:59 Temperature 97.1 F L Pulse Rate 66 66 67 Respiratory Rate 17 12 12 Blood Pressure 137/64 127/61 Pulse Oximetry 99 96 96 11/27/20 07:00 11/27/20 07:01 11/27/20 07:26 Temperature Pulse Rate 67 79 Respiratory Rate 14 16 Blood Pressure 119/60 119/60 Pulse Oximetry 96 97 MDM - Chest Pain Lab Data Attestation: I reviewed the patient's lab results. Result diagrams: 11/27/20 04:20 11/27/20 04:20 Labs: Lab Results 11/27/20 11/27/20 11/27/20 Range/Units 04:20 04:20 04:20 WBC 7.7 (4.5-11.0) X10^3/uL RBC 4.63 (4.5-5.9) X10^6/uL Hgb 14.2 (13.5-17.5) g/dL Hct 41.1 (41-53) % MCV 88.7 (80-100) fL MCH 30.6 (26-34) PG MCHC 34.5 (30-36) % RDW 13.8 (11.6-14.8) % Plt Count 205 (150-400) X10^3/uL Neut % (Auto) 74.1 (50-75) % Lymph % (Auto) 16.3 L (25-40) % [place] % (Auto) 8.2 (3-14) % Eos % (Auto) 1.0 L (2-4) % Baso % (Auto) 0.4 (0-2) % Neut # (Auto) 5700 (6765-0851) /uL Lymph # (Auto) 1300 (5730-2941) /uL [place] # (Auto) 600 (0-900) /uL Eos # (Auto) 100 (0-450) /uL Baso # (Auto) 0 (0-100) /uL Sodium 138 (137-145) mmol/L Potassium 3.7 (3.4-5.1) mmol/L Chloride 106 (98-107) mmol/L Carbon Dioxide 24 (22-32) mmol/L BUN 12 (9-20) mg/dL Creatinine 0.57 L (0.66-1.25) mg/dL Estimated GFR > 60.0 (>60) mL/min BUN/Creatinine Ratio 21.1 (6-22) Glucose 131 H (80-110) mg/dL Calcium 8.7 (8.4-10.2) mg/dL Total Bilirubin 0.4 (0.2-1.3) mg/dL AST 48 (17-59) IU/L ALT 31 (<50) IU/L Alkaline Phosphatase 70 (38-126) U/L Total Creatine Kinase 75 (55-170) U/L CK-MB (CK-2) TNP CK-MB (CK-2) Rel Index TNP Troponin I < 0.012 Cancelled (0.01-0.034) ng/mL Total Protein 6.0 L (6.3-8.2) g/dL Albumin 3.5 (3.5-5.0) g/dL Globulin 2.5 (1.7-4.1) g/dL Albumin/Globulin Ratio 1.4 (1.0-2.8) Lipase 80 (23-300) U/L 11/27/20 Range/Units 06:23 WBC (4.5-11.0) X10^3/uL RBC (4.5-5.9) X10^6/uL Hgb (13.5-17.5) g/dL Hct (41-53) % MCV (80-100) fL MCH (26-34) PG MCHC (30-36) % RDW (11.6-14.8) % Plt Count (150-400) X10^3/uL Neut % (Auto) (50-75) % Lymph % (Auto) (25-40) % [place] % (Auto) (3-14) % Eos % (Auto) (2-4) % Baso % (Auto) (0-2) % Neut # (Auto) (8755-8458) /uL Lymph # (Auto) (7480-9589) /uL [place] # (Auto) (0-900) /uL Eos # (Auto) (0-450) /uL Baso # (Auto) (0-100) /uL Sodium (137-145) mmol/L Potassium (3.4-5.1) mmol/L Chloride (98-107) mmol/L Carbon Dioxide (22-32) mmol/L BUN (9-20) mg/dL Creatinine (0.66-1.25) mg/dL Estimated GFR (>60) mL/min BUN/Creatinine Ratio (6-22) Glucose (80-110) mg/dL Calcium (8.4-10.2) mg/dL Total Bilirubin (0.2-1.3) mg/dL AST (17-59) IU/L ALT (<50) IU/L Alkaline Phosphatase (38-126) U/L Total Creatine Kinase (55-170) U/L CK-MB (CK-2) CK-MB (CK-2) Rel Index Troponin I < 0.012 (0.01-0.034) ng/mL Total Protein (6.3-8.2) g/dL Albumin (3.5-5.0) g/dL Globulin (1.7-4.1) g/dL Albumin/Globulin Ratio (1.0-2.8) Lipase (23-300) U/L Imaging Data Chest x-ray: Radiologist's Impression: PROCEDURE: XR CHEST 1V INDICATIONS: chest pain TECHNIQUE: One view of the chest was acquired. COMPARISON: [facility], CR, XR CHEST 1V, 11/23/2018, 3:57. FINDINGS: Surgical changes and devices: Overlying EKG wires. Lungs and pleura: Lungs are clear. No pleural effusions or pneumothorax. Mediastinum: Mediastinal contours appear normal. Heart size is normal. Bones and chest wall: No suspicious bony lesions. Overlying soft tissues appear unremarkable. IMPRESSION: No evidence of an acute cardiopulmonary abnormality. Agree with preliminary report. Dictated by: Rich Tapia D.O. on 11/27/2020 at 8:12 ECG Data Attestation: I personally reviewed and interpreted this ECG as follows: Prior ECG tracings: available for review Interpretation: 182 your S1-[address] changes or T-wave inversions similar to prior EKG MDM Narrative Medical decision making narrative: Patient troponins are within normal limits. Chest pain of bilateral rib pain now resolved does not quite seem cardiac. He is overall feeling better possible reaction to Singulair. He was seen by Cardiology yesterday, and admitted for chest pain rule out 2 weeks prior. At this time recommend outpatient follow-up and return as needed. Discharge Plan Departure Patient Disposition: Home Clinical Impression: Atypical chest pain Instructions: DI for Atypical Chest Pain Activity Restrictions/Additional Instructions: *You have been diagnosed with atypical chest pain *What to do: At this time recommend outpatient follow-up with your doctors, unclear cause of your symptoms today it may be related to your Singulair *Continue to take medications as directed *Follow up with your primary care provider in 2-3 days *Return to ER if you should have increasing chest pain shortness of breath palpitations weakness or any new, worsening or concerning symptoms Prescriptions: No Action aspirin [Adult Aspirin Regimen] 81 mg tablet,delayed release (DR/EC) 81 mg PO BID RF: 0 fluticasone propionate [Flonase Allergy Relief] 50 mcg/actuation spray,suspens ion 1 spray NASAL DAILY RF: 0 loratadine [Allergy Relief (loratadine)] 10 mg tablet 10 mg PO DAILY RF: 0 levothyroxine 50 mcg tablet See Rx Instructions .ROUTE .COMPLEX Qty: 90 RF: 2 atorvastatin 80 mg tablet 80 mg PO BEDTIME Qty: 90 RF: 1 metoprolol succinate 25 mg tablet extended release 24 hr PO RF: 0 ketoconazole 2 % cream 1 applictn TOP BID Qty: 30 RF: 1 lisinopril 10 mg tablet 10 mg PO DAILY RF: 0 omeprazole 20 mg capsule,delayed release(DR/EC) 20 mg PO DAILY Qty: 30 RF: 0 nitroglycerin 0.4 mg tablet, sublingual 0.4 mg SL Q5-15M PRN (Reason: chest pain) Qty: 20 RF: 2 montelukast 10 mg tablet 10 mg PO BEDTIME Qty: 30 RF: 2 Referrals: Nolan Smith, [Primary Care Provider] -
[2020-11-27 04:25] VITALS: BP 137/64; PULSE 66; RESP 17; TEMP 36.2; O2SAT 99; BMI 31.9
[2020-11-27 04:27] LABS: Add Manual Diff / Slide Review NO; Basophils Absolute Auto 0 /uL (0-100); Basophils Percent Auto 0.4 % (0-2); Eosinophils Absolute Auto 100 /uL (0-450); Hematocrit 41.1 % (41-53); Hemoglobin 14.2 g/dL (13.5-17.5); Lymphocytes Absolute Auto 1300 /uL (1100-4500); Lymphocytes Percent Auto 16.3 % (25-40); Mean Corpuscular HGB Conc 34.5 % (30-36); Mean Corpuscular Hemoglobin 30.6 PG (26-34); Mean Corpuscular Volume 88.7 fL (80-100); Monocytes Absolute Auto 600 /uL (0-900); Monocytes Percent Auto 8.2 % (3-14); Neutrophils Absolute Auto 5700 /uL (1500-7000); Neutrophils Percent Auto 74.1 % (50-75); Platelet Count 205 X10^3/uL (150-400); Red Blood Cell Count 4.63 X10^6/uL (4.5-5.9); Red Cell Distribution Width 13.8 % (11.6-14.8); White Blood Cell Count 7.7 X10^3/uL (4.5-11.0)
[2020-11-27 04:37] LABS: Alanine Aminotransferase 31 IU/L (<50); Albumin 3.5 g/dL (3.5-5.0); Albumin Globulin Ratio 1.4 (1.0-2.8); Alkaline Phosphatase 70 U/L (38-126); Aspartate Aminotransferase 48 IU/L (17-59); BUN Creatinine Ratio 21.1 (6-22); Bilirubin Total 0.4 mg/dL (0.2-1.3); Blood Urea Nitrogen 12 mg/dL (9-20); Calcium 8.7 mg/dL (8.4-10.2); Carbon Dioxide 24 mmol/L (22-32); Chloride 106 mmol/L (98-107); Creatine Kinase 75 U/L (55-170); Estimated Glomerular Filt Rate > 60.0 mL/min (>60); Globulin 2.5 g/dL (1.7-4.1); Glucose 131 mg/dL (80-110); Lipase 80 U/L (23-300); Potassium 3.7 mmol/L (3.4-5.1); Sodium 138 mmol/L (137-145)
[2020-11-27 04:43] LABS: HEMOLYSIS 54 (0-50)
[2020-11-27 04:49] LABS: Troponin I < 0.012 ng/mL (0.01-0.034)
[2020-11-27 06:41] VITALS: BP 127/61; PULSE 66; RESP 12; O2SAT 96
[2020-11-27 06:57] LABS: Troponin I < 0.012 ng/mL (0.01-0.034)
[2020-11-27 06:59] VITALS: PULSE 67; RESP 12; O2SAT 96
[2020-11-27 07:00] VITALS: BP 119/60
[2020-11-27 07:01] VITALS: PULSE 67; RESP 14; O2SAT 96
[2020-11-27 07:26] VITALS: BP 119/60; PULSE 79; RESP 16; O2SAT 97
== END 2020-11-27 07:26 | disposition home or self-care (01) ==
PROVIDERS: Emergency Provider Emergency Medicine; PCP Family Medicine
DX: R07.89 Other chest pain (principal)
CPT/HCPCS: 36415; 71045; 80053; 82550; 83690; 84484; 85025; 93005; 99284

== ENCOUNTER 2021-07-14 07:58 | Outpatient (RCR) | payer MEDICARE, OTHER, SELFPAY ==
--- NOTE | 2021-07-14 16:51 | PT.OIE ---
Current Diagnoses Primary osteoarthritis, right hand (07/14/21) Primary osteoarthritis, left hand (07/14/21) Muscle weakness (generalized) (07/14/21) Past Medical History (Last Reviewed 07/06/21 @ 08:55 by Nolan Smith DO) Acne Actinic keratosis (~2014) Chicken pox Chronic back pain (~1974) Coronary artery disease DISH (diffuse idiopathic skeletal hyperostosis) Encounter for well adult exam with abnormal findings Encounter for well adult exam with abnormal findings GERD (gastroesophageal reflux disease) (~1999) Hearing loss (~1970) Heel spur (~2018) Hemorrhoid (~1989) History of appendectomy History of heart artery stent History of knee surgery (~2010) History of tonsillectomy Hyperglycemia Hypothyroidism (acquired) Osteoarthritis (~2009) Plantar warts Seasonal allergies (~1950) Tinea Tinnitus (~1970) Vertigo (~2010) Vision disorder Past Surgical History (Last Reviewed 12/01/20 @ 19:34 by MELISSA Goyal) Anesthesia Heel spur History of appendectomy History of heart artery stent History of knee surgery (~2010) History of tonsillectomy Visit Care Team Role Provider Type Nolan Smith DO Attending Provider Physician Family Provider Primary Care Provider Referring Provider Specialty: [facility] Practice Address: [address] [place] [address] Email: [email or web address] Physical Therapy Initial Evaluation PT-OP-A Visit Information Start: 07/11/21 18:17 Freq: Status: Active Protocol: Document 07/14/21 08:15 LRN (Rec: 07/14/21 17:53 LRN [id number]) Out-Patient Physical Therapy Visit Information Visit Information Visit Type Initial Evaluation Visit Start Time 08:15 Visit Stop Time 09:02 Total Visit Minutes 47 Visit Number 1 Evaluation Information Evaluation Date 07/14/21 Precautions Precautions Pt reported PMH: 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 PT-OP-B Current Condition Start: 07/11/21 18:17 Freq: Status: Active Protocol: Document 07/14/21 08:15 LRN (Rec: 07/14/21 17:53 LRN [id number]) Current Condition History of Current Condition Onset Date 2 yrs ago Current Complaints Pain R (thumb, index, middle finger > L hand (thumb). Sharp, intermittent History of Current Condition Pt reports due to his diffuse idiopathic skeletal hyperstenosis his soft tissue is being replaced by bone, causing bone spurs all over. In the past 2 yrs he has noticed difficulty gripping and unscrewing lids from big, wide mouth jars. He is able to unscrew small lid jars with use of a rubber gripper. He is having difficulty with fine motor skills. After a 1/2 hour of puzzle work his fingers ache from trying to hold the puzzle pieces. He reports onset pof numbness in the same fingers and thumb when sleeping on his back, that is relieved with moving to his side. Treatment Goals Patient/Caregiver Goals Pt goal is to learn simple things to keep his flexibility & strength, to slow & monitor functionality. Prior Functional Status Baseline Function- ADL's Independent Baseline Function- Mobility Independent Current Functional Impairments (Reported) Functional Limitations- ADL's Difficulty gripping and unscrewing large mouth jar lids. Difficulty with fine motor skills like holding a puzzle pieces. Personal Factors Other Personal Factors That May Effect Diagnosis of Diffuse Therapy/Recovery Idiopathic Skeletal Hyperstenosis. PT-OP-C Subjective Start: 07/11/21 18:17 Freq: Status: Active Protocol: Document 07/14/21 08:15 LRN (Rec: 07/14/21 17:53 LRN [id number]) Patient Questionnaires Quick Dash- Upper Extremity Quick Dash UE Score 36 Quick Dash UE Impairment 20 to 39% Impaired (Score 20- 39) OP-PT Pain Assessment Pain Assessment Grid Paper Pain Assessment Grid Completed Yes PT-OP-H Neuro Start: 07/11/21 18:17 Freq: Status: Active Protocol: Document 07/14/21 08:15 LRN (Rec: 07/14/21 17:53 LRN [id number]) Sensation Evaluation Gross Sensation Gross Sensation WNL Comments Summary Comments Pt reports numbness in bilateral digits 1-3 when sleeping on his back, but not in sidelie. PT-OP-K Range of Motion Start: 07/11/21 18:17 Freq: Status: Active Protocol: Document 07/14/21 08:15 LRN (Rec: 07/14/21 17:53 LRN [id number]) Elbow/Forearm Range of Motion Elbow/Forearm Right Active ROM Testing Position Sitting Pronation (degrees) 90 Supination (degrees) 87 Left Active ROM Testing Position Sitting Pronation (degrees) 90 Supination (degrees) 87 Wrist Goniometric Range of Motion Wrist Right Wrist ROM WFL Yes Flexion Active (degrees) 50 Extension Active (degrees) 72 Left Wrist ROM WFL Yes Flexion Active (degrees) 55 Extension Active (degrees) 66 Finger Goniometric Range of Motion Finger Right Fifth PIP Flexion Active (degrees) 88 DIP Flexion Active (70-90 degrees) 68 L Right Fourth PIP Flexion Active (degrees) 92 DIP Flexion Active (70-90 degrees) 69 L Right Third PIP Flexion Active (degrees) 88 DIP Flexion Active (70-90 degrees) 98 H Right Second PIP Flexion Active (degrees) 88 DIP Flexion Active (70-90 degrees) 61 L Left Fifth PIP Flexion Active (degrees) 80 DIP Flexion Active (70-90 degrees) 70 Left Fourth PIP Flexion Active (degrees) 82 DIP Flexion Active (70-90 degrees) 70 Left Third PIP Flexion Active (degrees) 90 DIP Flexion Active (70-90 degrees) 68 L Left Second PIP Flexion Active (degrees) 80 DIP Flexion Active (70-90 degrees) 73 PT-OP-M Strength Start: 07/11/21 18:17 Freq: Status: Active Protocol: Document 07/14/21 08:15 LRN (Rec: 07/14/21 17:53 LR [id number]) Elbow/Forearm Strength Elbow and Forearm Manual Muscle Testing Right Flexion (C6) 5 Normal Extension (C7) 5 Normal Pronation 5 Normal Supination 5 Normal Left Flexion (C6) 5 Normal Extension (C7) 5 Normal Pronation 5 Normal Supination 5 Normal Wrist Strength Wrist Manual Muscle Testing Right Flexion (C7) 5 Normal Extension (C6) 5 Normal Comments Generally 5/5 Left Flexion (C7) 5 Normal Extension (C6) 5 Normal Comments Generally 5/5 Finger/Thumb Strength Finger Manual Muscle Testing Right Fifth Flexion (fingers C8) 4+ Good+ Extension (thumb C8) 5 Normal Right Fourth Flexion (fingers C8) 4+ Good+ Extension (thumb C8) 5 Normal Right Third Flexion (fingers C8) 4+ Good+ Extension (thumb C8) 5 Normal Right Second Flexion (fingers C8) 4+ Good+ Extension (thumb C8) 5 Normal Right Thumb Flexion (fingers C8) 5 Normal Extension (thumb C8) 5 Normal Adduction 5 Normal Abduction (fingers T1) 5 Normal Left Fifth Flexion (fingers C8) 5 Normal Extension (thumb C8) 5 Normal Left Fourth Flexion (fingers C8) 5 Normal Extension (thumb C8) 5 Normal Left Third Flexion (fingers C8) 4 Good Extension (thumb C8) 5 Normal Left Second Flexion (fingers C8) 4 Good Extension (thumb C8) 5 Normal Left Thumb Flexion (fingers C8) 5 Normal Extension (thumb C8) 5 Normal Adduction 5 Normal Abduction (fingers T1) 5 Normal Hand Massage Coordinator/Pinch Strength Hand Dominance Hand Dominance Right Hand Strength Right Massage Coordinator (lbs) 92 Comments Handle at second slot Massage Coordinator strength with 3 trials: (lbs) 102, 85, 90 - avg is 92# (kgs) 46, 38, 41 - avg is 41.7 kg Pinch Test: Digit 2: 11.5#, Digit 3: 10#, Digit 4: 6#, Digit 5: 3# Left Comments Handle at second slot Massage Coordinator strength with 3 trials: (lbs) 65, 63, 73 - avg is 67# (kgs) 30, 28,33 - avg is 30 kg Pinch Test: Digit 2: 9#, Digit 3: 7.5#, Digit 4: 6#, Digit 5: 3# PT-OP-Q Treatments Start: 07/11/21 18:17 Freq: Status: Active Protocol: Document 07/14/21 08:15 LRN (Rec: 07/14/21 17:53 [facility] [id number]) Self-Care/Home Management Treatment Education Other Education Discussed results of evaluation, goals, and plan of care (POC). Pt agreeable to goals and POC. PT-OP-T Assessment and Plan Start: 07/11/21 18:17 Freq: Status: Active Protocol: Document 07/14/21 08:15 LRN (Rec: 07/14/21 17:53 [facility] [id number]) Physical Therapy Assessment Rehab Potential Rehabilitation Potential Good Evaluation Complexity Number of Personal Factors/Comorbidities 1-2 Number of Body Systems Impaired 4 or More Clinical Presentation at Evaluation Stable Impairments Impairments Functional Activities,Pain,ROM ,Strength Goals One Impairment Lacks appropriate self care HEP Short Term Goal (STG) Pt educated in edema management techniques to reduce swelling in the hands first thing in the morning ( hot/cold, RICE). Educate pt in a self care HEP of hand strengthening ex's (gripping, fine motor skills) and AROM/ PROM of fingers (for first in the morning ex's), and wrist & forearm (UD/RD/sup/pron) strengthening ex's. [employer] Goal (LTG) Pt will be independent in a self care HEP of hand, wrist and forearm ex's. LTG Duration 09/12/21 Assessment Summary Assessment Pt is a 70 year old male with pain in his thumb, index and middle fingers of both hands, but mostly in the R hand. His pain is intermitttent in onset, not associated to any particular action or position that he can recall. He has difficulty opening wide mouth jars due to hand weakness and is stiff in the fingers in the mornings. Functionally his UE QuickDASH score (36) indicates 20-39% impairment. The pt demonstrates mild loss of mobility of digits 1-3 with the right hand being worse than the left. The pt has onset of numbness of digits 1- 3 bilaterally if he sleeps supine, but resolves in sidelie. The pt is only interested in learning a home program of hand ROM and strengthening exercises and is not interested in treatments to the hand; therefore the pt will benefit from skilled physical therapy to be placed onto a self care HEP of bilateral forearm, wrist and hand ROM and strengthening exercises, as well as education in edema management to help try and reduce swelling in his hand first thing in the morning, to reduce stiffness and pain in the digits 1-3 in the mornings . I feel the pt may benefit from therapy to his neck to reduce onset of numbing of his fingers during the night, which could potentially help reduce the stiffness of his hands in the morning; therefore I will have further discussion with the pt for continued therapy beyond placement onto a HEP and if agreeable we will continue for neck/UE treatment, otherwise we will stick to his current plan of care as mentioned above. Physical Therapy Plan Frequency and Duration Frequency of Treatment 1x/Week Plan of Care Start Date 07/14/21 Plan of Care End Date 09/12/21 Therapeutic Interventions Therapeutic Interventions Home Exercise Program,Manual Therapy,Patient/Caregiver Education,Self-Care/Home Management,Soft Tissue Mobilization,Taping, Therapeutic Exercises Modalities Paraffin Bath Next Visit Focus/Plan Next Note Type Treatment Note Next Visit Plan Educate pt on edema management (hot/cold, RICE) discuss use of isotoner gloves for compression, Focus on HEP in 1 visit: finger AROM first in morning and finger strengthening for gripping and opposition (opening large jar lids), general wrist strengthening (UD/RD/Sup/Pron) and fine motor skill strengthening (buttoning, writing, picking up small objects). One follow up for review of exercises.
--- NOTE | 2021-07-14 16:54 | PT.OPPOC ---
Physical, Occupational & Speech Therapy At [facility] Current Diagnoses Primary osteoarthritis, right hand (07/14/21) Primary osteoarthritis, left hand (07/14/21) Muscle weakness (generalized) (07/14/21) Visit Care Team Role Provider Type Nolan Smith DO Attending Provider Physician Family Provider Primary Care Provider Referring Provider Specialty: Family Practice Address: [address] [place] [address], [facility] Email: [email or web address] Plan Of Care PT-OP-T Assessment and Plan Start: 07/11/21 18:17 Freq: Status: Active Protocol: Document 07/14/21 08:15 LRN (Rec: 07/14/21 17:53 LRN [id number]) Physical Therapy Assessment Rehab Potential Rehabilitation Potential Good Evaluation Complexity Number of Personal Factors/Comorbidities 1-2 Number of Body Systems Impaired 4 or More Clinical Presentation at Evaluation Stable Impairments Impairments Functional Activities,Pain,ROM ,Strength Goals One Impairment Lacks appropriate self care HEP Short Term Goal (STG) Pt educated in edema management techniques to reduce swelling in the hands first thing in the morning ( hot/cold, RICE). Educate pt in a self care HEP of hand strengthening ex's (gripping, fine motor skills) and AROM/ PROM of fingers (for first in the morning ex's), and wrist & forearm (UD/RD/sup/pron) strengthening ex's. Usp Goal (LTG) Pt will be independent in a self care HEP of hand, wrist and forearm ex's. LTG Duration 09/12/21 Assessment Summary Assessment Pt is a 70 year old male with pain in his thumb, index and middle fingers of both hands, but mostly in the R hand. His pain is intermitttent in onset, not associated to any particular action or position that he can recall. He has difficulty opening wide mouth jars due to hand weakness and is stiff in the fingers in the mornings. Functionally his UE QuickDASH score (36) indicates 20-39% impairment. The pt demonstrates mild loss of mobility of digits 1-3 with the right hand being worse than the left. The pt has onset of numbness of digits 1- 3 bilaterally if he sleeps supine, but resolves in sidelie. The pt is only interested in learning a home program of hand ROM and strengthening exercises and is not interested in treatments to the hand; therefore the pt will benefit from skilled physical therapy to be placed onto a self care HEP of bilateral forearm, wrist and hand ROM and strengthening exercises, as well as education in edema management to help try and reduce swelling in his hand first thing in the morning, to reduce stiffness and pain in the digits 1-3 in the mornings . I feel the pt may benefit from therapy to his neck to reduce onset of numbing of his fingers during the night, which could potentially help reduce the stiffness of his hands in the morning; therefore I will have further discussion with the pt for continued therapy beyond placement onto a HEP and if agreeable we will continue for neck/UE treatment, otherwise we will stick to his current plan of care as mentioned above. Physical Therapy Plan Frequency and Duration Frequency of Treatment 1x/Week Plan of Care Start Date 07/14/21 Plan of Care End Date 09/12/21 Therapeutic Interventions Therapeutic Interventions Home Exercise Program,Manual Therapy,Patient/Caregiver Education,Self-Care/Home Management,Soft Tissue Mobilization,Taping, Therapeutic Exercises Modalities Paraffin Bath Next Visit Focus/Plan Next Note Type Treatment Note Next Visit Plan Educate pt on edema management (hot/cold, RICE) discuss use of isotoner gloves for compression, Focus on HEP in 1 visit: finger AROM first in morning and finger strengthening for gripping and opposition (opening large jar lids), general wrist strengthening (UD/RD/Sup/Pron) and fine motor skill strengthening (buttoning, writing, picking up small objects). One follow up for review of exercises. Plan of Care Dates Plan of Care Start Date 07/14/21 Plan of Care End Date 09/12/21 Electronically Signed by: Dora Gutierrez, PT 07/15/21 0862 Please Sign and Return: I have reviewed this Plan of Care and certify that the skilled therapy services above are required to meet the patient?s needs. Physician Signature Date Printed Name and Credentials Clinical Instructor Signature Printed Name and Credentials
--- NOTE | 2022-02-03 16:35 | PT.OPDS ---
Current Diagnoses Primary osteoarthritis, right hand (07/14/21) Primary osteoarthritis, left hand (07/14/21) Muscle weakness (generalized) (07/14/21) Visit Care Team Role Provider Type Nolan Smith DO Attending Provider Physician Family Provider Primary Care Provider Referring Provider Specialty: Family Practice Address: [address] [place] [address], [facility] Email: [email or web address] Visit Number Visit Number 1 Discharge Summary PT-OP-B Current Condition Start: 07/11/21 18:17 Freq: Status: Active Protocol: Document 07/14/21 08:15 LRN (Rec: 07/14/21 17:53 LRN [id number]) Current Condition History of Current Condition Onset Date 2 yrs ago Current Complaints Pain R (thumb, index, middle finger > L hand (thumb). Sharp, intermittent History of Current Condition Pt reports due to his diffuse idiopathic skeletal hyperstenosis his soft tissue is being replaced by bone, causing bone spurs all over. In the past 2 yrs he has noticed difficulty gripping and unscrewing lids from big, wide mouth jars. He is able to unscrew small lid jars with use of a rubber gripper. He is having difficulty with fine motor skills. After a 1/2 hour of puzzle work his fingers ache from trying to hold the puzzle pieces. He reports onset pof numbness in the same fingers and thumb when sleeping on his back, that is relieved with moving to his side. Treatment Goals Patient/Caregiver Goals Pt goal is to learn simple things to keep his flexibility & strength, to slow & monitor functionality. Prior Functional Status Baseline Function- ADL's Independent Baseline Function- Mobility Independent Current Functional Impairments (Reported) Functional Limitations- ADL's Difficulty gripping and unscrewing large mouth jar lids. Difficulty with fine motor skills like holding a puzzle pieces. Personal Factors Other Personal Factors That May Effect Diagnosis of Diffuse Therapy/Recovery Idiopathic Skeletal Hyperstenosis. PT-OP-C Subjective Start: 07/11/21 18:17 Freq: Status: Active Protocol: Document 07/14/21 08:15 LRN (Rec: 07/14/21 17:53 LRN [id number]) Patient Questionnaires Quick Dash- Upper Extremity Quick Dash UE Score 36 Quick Dash UE Impairment 20 to 39% Impaired (Score 20- 39) OP-PT Pain Assessment Pain Assessment Grid Paper Pain Assessment Grid Completed Yes PT-OP-H Neuro Start: 07/11/21 18:17 Freq: Status: Active Protocol: Document 07/14/21 08:15 LRN (Rec: 07/14/21 17:53 LRN [id number]) Sensation Evaluation Gross Sensation Gross Sensation WNL Comments Summary Comments Pt reports numbness in bilateral digits 1-3 when sleeping on his back, but not in sidelie. PT-OP-K Range of Motion Start: 07/11/21 18:17 Freq: Status: Active Protocol: Document 07/14/21 08:15 LRN (Rec: 07/14/21 17:53 LRN [id number]) Elbow/Forearm Range of Motion Elbow/Forearm Right Active ROM Testing Position Sitting Pronation (degrees) 90 Supination (degrees) 87 Left Active ROM Testing Position Sitting Pronation (degrees) 90 Supination (degrees) 87 Wrist Goniometric Range of Motion Wrist Right Wrist ROM WFL Yes Flexion Active (degrees) 50 Extension Active (degrees) 72 Left Wrist ROM WFL Yes Flexion Active (degrees) 55 Extension Active (degrees) 66 Finger Goniometric Range of Motion Finger Right Fifth PIP Flexion Active (degrees) 88 DIP Flexion Active (70-90 degrees) 68 L Right Fourth PIP Flexion Active (degrees) 92 DIP Flexion Active (70-90 degrees) 69 L Right Third PIP Flexion Active (degrees) 88 DIP Flexion Active (70-90 degrees) 98 H Right Second PIP Flexion Active (degrees) 88 DIP Flexion Active (70-90 degrees) 61 L Left Fifth PIP Flexion Active (degrees) 80 DIP Flexion Active (70-90 degrees) 70 Left Fourth PIP Flexion Active (degrees) 82 DIP Flexion Active (70-90 degrees) 70 Left Third PIP Flexion Active (degrees) 90 DIP Flexion Active (70-90 degrees) 68 L Left Second PIP Flexion Active (degrees) 80 DIP Flexion Active (70-90 degrees) 73 PT-OP-M Strength Start: 07/11/21 18:17 Freq: Status: Active Protocol: Document 07/14/21 08:15 LRN (Rec: 07/14/21 17:53 LRN [id number]) Elbow/Forearm Strength Elbow and Forearm Manual Muscle Testing Right Flexion (C6) 5 Normal Extension (C7) 5 Normal Pronation 5 Normal Supination 5 Normal Left Flexion (C6) 5 Normal Extension (C7) 5 Normal Pronation 5 Normal Supination 5 Normal Wrist Strength Wrist Manual Muscle Testing Right Flexion (C7) 5 Normal Extension (C6) 5 Normal Comments Generally 5/5 Left Flexion (C7) 5 Normal Extension (C6) 5 Normal Comments Generally 5/5 Finger/Thumb Strength Finger Manual Muscle Testing Right Fifth Flexion (fingers C8) 4+ Good+ Extension (thumb C8) 5 Normal Right Fourth Flexion (fingers C8) 4+ Good+ Extension (thumb C8) 5 Normal Right Third Flexion (fingers C8) 4+ Good+ Extension (thumb C8) 5 Normal Right Second Flexion (fingers C8) 4+ Good+ Extension (thumb C8) 5 Normal Right Thumb Flexion (fingers C8) 5 Normal Extension (thumb C8) 5 Normal Adduction 5 Normal Abduction (fingers T1) 5 Normal Left Fifth Flexion (fingers C8) 5 Normal Extension (thumb C8) 5 Normal Left Fourth Flexion (fingers C8) 5 Normal Extension (thumb C8) 5 Normal Left Third Flexion (fingers C8) 4 Good Extension (thumb C8) 5 Normal Left Second Flexion (fingers C8) 4 Good Extension (thumb C8) 5 Normal Left Thumb Flexion (fingers C8) 5 Normal Extension (thumb C8) 5 Normal Adduction 5 Normal Abduction (fingers T1) 5 Normal Hand Pad Extraction Tender/Pinch Strength Hand Dominance Hand Dominance Right Hand Strength Right Pad Extraction Tender (lbs) 92 Comments Handle at second slot Pad Extraction Tender strength with 3 trials: (lbs) 102, 85, 90 - avg is 92# (kgs) 46, 38, 41 - avg is 41.7 kg Pinch Test: Digit 2: 11.5#, Digit 3: 10#, Digit 4: 6#, Digit 5: 3# Left Comments Handle at second slot Pad Extraction Tender strength with 3 trials: (lbs) 65, 63, 73 - avg is 67# (kgs) 30, 28,33 - avg is 30 kg Pinch Test: Digit 2: 9#, Digit 3: 7.5#, Digit 4: 6#, Digit 5: 3# PT-OP-T Assessment and Plan Start: 07/11/21 18:17 Freq: Status: Active Protocol: Document 02/03/22 16:32 LRN (Rec: 02/03/22 16:35 LRN [id number]) Physical Therapy Assessment Goals One Impairment Lacks appropriate self care HEP Short Term Goal (STG) Pt educated in edema management techniques to reduce swelling in the hands first thing in the morning ( hot/cold, RICE). Educate pt in a self care HEP of hand strengthening ex's (gripping, fine motor skills) and AROM/ PROM of fingers (for first in the morning ex's), and wrist & forearm (UD/RD/sup/pron) strengthening ex's. STG Duration (02/03/22: GOAL NOT MET) Alf Goal (LTG) Pt will be independent in a self care HEP of hand, wrist and forearm ex's. LTG Duration 09/12/21 (02/03/22: GOAL NOT MET) Assessment Summary Assessment Pt was seen for only his initial evaluation and canceled his remaining appointments with one no show. The pt did not meet his goals due to failure to complete therapy program, failure to attend therapy; therefore the pt is being discharged due to lack of attendance/no longer attending PT. Physical Therapy Plan Discharge Physical Therapy Discharge Reasons No Longer Attending PT Discharge Comments Thank you for your referral.
== END 2022-02-07 12:54 ==
LOC: PHYS 07:58
PROVIDERS: Family Provider Family Medicine; PCP Family Medicine; Referring Provider Family Medicine; Visit Provider Family Medicine
DX: M19.041 Primary osteoarthritis, right hand (principal); M19.042 Primary osteoarthritis, left hand; M62.81 Muscle weakness (generalized)
CPT/HCPCS: 97162; 97535

== ENCOUNTER → 2021-07-14 09:12 | Outpatient (CLI) | payer MEDICARE, OTHER, SELFPAY ==
[2021-07-14 09:58] LABS: Hemoglobin A1C% w Est Avg Glu 6.6 % (4.0-6.0)
[2021-07-14 10:36] LABS: Alanine Aminotransferase 53 IU/L (<50); Albumin 4.4 g/dL (3.5-5.0); Albumin Globulin Ratio 1.6 (1.0-2.8); Alkaline Phosphatase 73 U/L (38-126); Aspartate Aminotransferase 65 IU/L (17-59); BUN Creatinine Ratio 15.3 (6-22); Bilirubin Total 0.6 mg/dL (0.2-1.3); Blood Urea Nitrogen 11 mg/dL (9-20); Calcium 9.4 mg/dL (8.4-10.2); Carbon Dioxide 29 mmol/L (22-32); Chloride 102 mmol/L (98-107); Estimated Glomerular Filt Rate > 60.0 mL/min (>60); Globulin 2.7 g/dL (1.7-4.1); Glucose 135 mg/dL (80-110); HEMOLYSIS < 15 (0-50); Potassium 4.3 mmol/L (3.4-5.1); Sodium 139 mmol/L (137-145); Total Protein 7.1 g/dL (6.3-8.2)
[2021-07-14 10:57] LABS: Thyroid Stimulating Hormone 1.67 uIU/mL (0.47-4.68)
== END ==
PROVIDERS: Family Provider Family Medicine; PCP Family Medicine; Referring Provider Family Medicine; Visit Provider Family Medicine
DX: R73.9 Hyperglycemia, unspecified (principal); I10 Essential (primary) hypertension; E03.9 Hypothyroidism, unspecified
CPT/HCPCS: 36415; 80053; 83036; 84439; 84443

== ENCOUNTER → 2021-12-21 08:24 | Outpatient (CLI) | payer MEDICARE, OTHER, SELFPAY ==
[2021-12-21 09:16] LABS: Alanine Aminotransferase 41 IU/L (<50); Albumin 4.1 g/dL (3.5-5.0); Albumin Globulin Ratio 1.5 (1.0-2.8); Alkaline Phosphatase 76 U/L (38-126); Aspartate Aminotransferase 40 IU/L (17-59); BUN Creatinine Ratio 18.2 (6-22); Bilirubin Total 0.6 mg/dL (0.2-1.3); Blood Urea Nitrogen 12 mg/dL (9-20); Carbon Dioxide 28 mmol/L (22-32); Chloride 102 mmol/L (98-107); Cholesterol 112 mg/dL (140-199); Estimated Glomerular Filt Rate > 60 mL/min (>60); Globulin 2.7 g/dL (1.7-4.1); Glucose 135 mg/dL (80-110); HDL Cholesterol 26 mg/dL (40-60); HEMOLYSIS 18 (0-50); LDL Cholesterol Calculated 58 mg/dL (<100); Sodium 138 mmol/L (137-145); Total Protein 6.8 g/dL (6.3-8.2); Triglycerides 138 mg/dL (35-150)
== END ==
PROVIDERS: Family Provider Family Medicine; PCP Family Medicine; Referring Provider Internal Medicine Cardiovascular Disease; Visit Provider Internal Medicine Cardiovascular Disease
DX: E78.5 Hyperlipidemia, unspecified (principal)
CPT/HCPCS: 36415; 80053; 80061

== ENCOUNTER → 2022-02-03 14:36 | Outpatient (CLI) | payer MEDICARE, OTHER, SELFPAY | PROVIDERS: Family Provider Family Medicine; PCP Family Medicine; Referring Provider Specialist/Technologist Athletic Trainer; Visit Provider Specialist/Technologist Athletic Trainer | DX: Z13.820 Encounter for screening for osteoporosis (principal); M85.851 Other specified disorders of bone density and structure, right thigh | CPT/HCPCS: 77080 ==

== ENCOUNTER → 2022-02-17 08:02 | Outpatient (CLI) | payer MEDICARE, OTHER, SELFPAY ==
[2022-02-17 09:35] LABS: Alanine Aminotransferase 211 IU/L (<50); Albumin 4.4 g/dL (3.5-5.0); Albumin Globulin Ratio 1.8 (1.0-2.8); Alkaline Phosphatase 117 U/L (38-126); Aspartate Aminotransferase 98 IU/L (17-59); BUN Creatinine Ratio 17.4 (6-22); Bilirubin Total 0.7 mg/dL (0.2-1.3); Blood Urea Nitrogen 12 mg/dL (9-20); Calcium 9.2 mg/dL (8.4-10.2); Carbon Dioxide 29 mmol/L (22-32); Chloride 101 mmol/L (98-107); Estimated Glomerular Filt Rate > 60 mL/min (>60); Globulin 2.5 g/dL (1.7-4.1); Glucose 140 mg/dL (80-110); HEMOLYSIS < 15 (0-50); Sodium 138 mmol/L (137-145); Total Protein 6.9 g/dL (6.3-8.2)
[2022-02-17 10:40] LABS: Free T4, Direct Thyroxine 0.94 ng/dL (0.78-2.19)
[2022-02-17 10:54] LABS: Thyroid Stimulating Hormone 1.33 uIU/mL (0.47-4.68)
== END ==
PROVIDERS: Family Provider Family Medicine; PCP Family Medicine; Referring Provider Family Medicine; Visit Provider Family Medicine
DX: E03.9 Hypothyroidism, unspecified (principal); I25.10 Atherosclerotic heart disease of native coronary artery without angina pectoris; Z00.00 Encounter for general adult medical examination without abnormal findings
CPT/HCPCS: 36415; 80053; 83036; 84439; 84443

== ENCOUNTER → 2022-03-08 08:32 | Outpatient (CLI) | payer MEDICARE, OTHER, SELFPAY ==
[2022-03-08 10:32] LABS: Alanine Aminotransferase 49 IU/L (<50); Albumin Globulin Ratio 1.7 (1.0-2.8); Alkaline Phosphatase 77 U/L (38-126); Aspartate Aminotransferase 47 IU/L (17-59); Bilirubin Total 0.4 mg/dL (0.2-1.3); Bilirubin Unconjugated 0.4 mg/dL (0.0-1.1); Globulin 2.4 g/dL (1.7-4.1); HEMOLYSIS < 15 (0-50); Total Protein 6.4 g/dL (6.3-8.2)
[2022-03-08 13:58] LABS: Creatine Kinase 117 U/L (55-170)
== END ==
PROVIDERS: Family Provider Family Medicine; PCP Family Medicine; Referring Provider Internal Medicine Cardiovascular Disease; Visit Provider Internal Medicine Cardiovascular Disease
DX: E78.5 Hyperlipidemia, unspecified (principal)
CPT/HCPCS: 36415; 80076; 82550

== ENCOUNTER → 2022-04-17 07:11 | Outpatient (CLI) | payer MEDICARE, OTHER, SELFPAY ==
[2022-04-17 07:45] LABS: Hemoglobin A1C% w Est Avg Glu 6.9 % (4.0-6.0)
[2022-04-17 07:56] LABS: Alanine Aminotransferase 59 IU/L (<50); Albumin Globulin Ratio 1.3 (1.0-2.8); Alkaline Phosphatase 76 U/L (38-126); Aspartate Aminotransferase 69 IU/L (17-59); BUN Creatinine Ratio 17.9 (6-22); Bilirubin Total 0.6 mg/dL (0.2-1.3); Blood Urea Nitrogen 12 mg/dL (9-20); Calcium 8.8 mg/dL (8.4-10.2); Carbon Dioxide 29 mmol/L (22-32); Chloride 102 mmol/L (98-107); Estimated Glomerular Filt Rate > 60 mL/min (>60); Glucose 124 mg/dL (80-110); HEMOLYSIS < 15 (0-50); Potassium 4.2 mmol/L (3.4-5.1); Sodium 138 mmol/L (137-145)
== END ==
PROVIDERS: Family Provider Family Medicine; PCP Family Medicine; Referring Provider Family Medicine; Visit Provider Family Medicine
DX: R73.9 Hyperglycemia, unspecified (principal)
CPT/HCPCS: 36415; 80053; 83036

== ENCOUNTER → 2022-08-28 08:27 | Outpatient (CLI) | payer MEDICARE, OTHER, SELFPAY ==
[2022-08-28 08:59] LABS: Add Manual Diff / Slide Review NO; Basophils Absolute Auto 0 /uL (0-100); Basophils Percent Auto 0.6 % (0-2); Eosinophils Absolute Auto 100 /uL (0-450); Hematocrit 44.3 % (41-53); Hemoglobin 15.1 g/dL (13.5-17.5); Lymphocytes Absolute Auto 1800 /uL (1100-4500); Lymphocytes Percent Auto 35.5 % (25-40); Mean Corpuscular Hemoglobin 30.5 PG (26-34); Mean Corpuscular Volume 89.6 fL (80-100); Monocytes Absolute Auto 400 /uL (0-900); Monocytes Percent Auto 7.7 % (3-14); Neutrophils Absolute Auto 2700 /uL (1500-7000); Neutrophils Percent Auto 54.2 % (50-75); Platelet Count 244 X10^3/uL (150-400); Red Blood Cell Count 4.94 X10^6/uL (4.5-5.9); Red Cell Distribution Width 13.7 % (11.6-14.8); White Blood Cell Count 5.1 X10^3/uL (4.5-11.0)
[2022-08-28 09:09] LABS: Hemoglobin A1C% w Est Avg Glu 6.4 % (4.0-6.0)
[2022-08-28 09:17] LABS: Alanine Aminotransferase 49 IU/L (<50); Albumin 4.1 g/dL (3.5-5.0); Albumin Globulin Ratio 1.6 (1.0-2.8); Alkaline Phosphatase 66 U/L (38-126); Aspartate Aminotransferase 46 IU/L (17-59); BUN Creatinine Ratio 18.8 (6-22); Bilirubin Total 0.5 mg/dL (0.2-1.3); Blood Urea Nitrogen 12 mg/dL (9-20); Calcium 9.2 mg/dL (8.4-10.2); Carbon Dioxide 29 mmol/L (22-32); Chloride 99 mmol/L (98-107); Cholesterol 121 mg/dL (140-199); Estimated Glomerular Filt Rate > 60 mL/min (>60); Globulin 2.6 g/dL (1.7-4.1); Glucose 104 mg/dL (80-110); HDL Cholesterol 29 mg/dL (40-60); HEMOLYSIS < 15 (0-50); LDL Cholesterol Calculated 64 mg/dL (<100); Potassium 4.3 mmol/L (3.4-5.1); Sodium 137 mmol/L (137-145); Total Protein 6.7 g/dL (6.3-8.2); Triglycerides 142 mg/dL (35-150)
[2022-08-28 09:34] LABS: Free T4, Direct Thyroxine 0.94 ng/dL (0.78-2.19)
[2022-08-28 09:48] LABS: Thyroid Stimulating Hormone 1.42 uIU/mL (0.47-4.68)
[2022-08-28 10:47] LABS: Creatinine Urine Random 84.8 mg/dL
[2022-08-28 10:54] LABS: Microalbumi Creatinin Ratio Ur 10.6 ug/mg CR (<30); Microalbumin Urine Random 0.9 mg/dL (0-1.6)
== END ==
PROVIDERS: Family Provider Family Medicine; PCP Family Medicine; Referring Provider Family Medicine; Visit Provider Family Medicine
DX: E03.9 Hypothyroidism, unspecified (principal); R73.9 Hyperglycemia, unspecified; E78.5 Hyperlipidemia, unspecified; I10 Essential (primary) hypertension
CPT/HCPCS: 36415; 80053; 80061; 82043; 82570; 83036; 84439; 84443; 85025

== ENCOUNTER → 2023-01-02 16:15 | Outpatient (CLI) | payer MEDICARE, OTHER, SELFPAY ==
--- NOTE | 2023-01-02 16:20 | DI.RAD.S_ITS ---
PROCEDURE: XR SHOULDER LT MIN 2V INDICATIONS: shoulder pain TECHNIQUE: 3 views of the shoulder were acquired. COMPARISON: None. FINDINGS: Bones: No fractures or dislocations. No suspicious bony lesions. Visualized ribs appear intact. Mild acromioclavicular joint osteoarthritis. Soft tissues: No suspicious soft tissue calcifications. IMPRESSION: No fracture. No acute osseous lesion. If symptoms and/or clinical suspicion for pathology persists, further assessment with repeat radiographs (7-10 days) or advanced imaging (e.g. CT, MRI or bone scan) should be considered. Dictated by: Juana Nieto MD, PhD on 01/02/2023 at 16:39 Approved by: Juana Nieto MD, PhD on 01/02/2023 at 16:39
== END ==
PROVIDERS: Family Provider Family Medicine; PCP Family Medicine; Referring Provider Nurse Practitioner Family; Visit Provider Nurse Practitioner Family
DX: M25.512 Pain in left shoulder (principal); M19.012 Primary osteoarthritis, left shoulder
CPT/HCPCS: 73030

== ENCOUNTER → 2023-02-12 08:48 | Outpatient (CLI) | payer MEDICARE, OTHER, SELFPAY ==
[2023-02-12 10:04] LABS: Add Manual Diff / Slide Review NO; Basophils Absolute Auto 0 /uL (0-100); Basophils Percent Auto 0.9 % (0-2); Eosinophils Absolute Auto 100 /uL (0-450); Eosinophils Percent Auto 2.4 % (2-4); Hematocrit 43.7 % (41-53); Hemoglobin 15.1 g/dL (13.5-17.5); Lymphocytes Absolute Auto 1600 /uL (1100-4500); Lymphocytes Percent Auto 30.3 % (25-40); Mean Corpuscular HGB Conc 34.5 % (30-36); Mean Corpuscular Hemoglobin 30.7 PG (26-34); Mean Corpuscular Volume 88.9 fL (80-100); Monocytes Absolute Auto 400 /uL (0-900); Monocytes Percent Auto 7.5 % (3-14); Neutrophils Absolute Auto 3100 /uL (1500-7000); Neutrophils Percent Auto 58.9 % (50-75); Platelet Count 232 X10^3/uL (150-400); Red Blood Cell Count 4.91 X10^6/uL (4.5-5.9); Red Cell Distribution Width 13.2 % (11.6-14.8); White Blood Cell Count 5.2 X10^3/uL (4.5-11.0)
[2023-02-12 10:15] LABS: Alanine Aminotransferase 47 IU/L (<50); Albumin 4.1 g/dL (3.5-5.0); Albumin Globulin Ratio 1.7 (1.0-2.8); Alkaline Phosphatase 59 U/L (38-126); Aspartate Aminotransferase 39 IU/L (17-59); Bilirubin Total 0.4 mg/dL (0.2-1.3); Blood Urea Nitrogen 13 mg/dL (9-20); Calcium 9.4 mg/dL (8.4-10.2); Carbon Dioxide 26 mmol/L (22-32); Chloride 99 mmol/L (98-107); Cholesterol 123 mg/dL (140-199); Estimated Glomerular Filt Rate > 60 mL/min (>60); Globulin 2.4 g/dL (1.7-4.1); Glucose 118 mg/dL (80-110); HDL Cholesterol 30 mg/dL (40-60); HEMOLYSIS < 15 (0-50); LDL Cholesterol Calculated 52 mg/dL (<100); Potassium 4.3 mmol/L (3.4-5.1); Sodium 134 mmol/L (137-145); Total Protein 6.5 g/dL (6.3-8.2); Triglycerides 206 mg/dL (35-150)
[2023-02-12 10:26] LABS: Alanine Aminotransferase 48 IU/L (<50); Albumin 4.1 g/dL (3.5-5.0); Albumin Globulin Ratio 1.6 (1.0-2.8); Alkaline Phosphatase 59 U/L (38-126); Aspartate Aminotransferase 38 IU/L (17-59); Bilirubin Total 0.5 mg/dL (0.2-1.3); Bilirubin Unconjugated 0.3 mg/dL (0.0-1.1); Globulin 2.6 g/dL (1.7-4.1); HEMOLYSIS < 15 (0-50); Total Protein 6.7 g/dL (6.3-8.2)
[2023-02-12 10:30] LABS: Free T4, Direct Thyroxine 0.91 ng/dL (0.78-2.19)
[2023-02-12 10:44] LABS: Prostate Specific Antigen 1.02 ng/mL (0.10-4.00); Thyroid Stimulating Hormone 1.39 uIU/mL (0.47-4.68)
[2023-02-13 02:07] LABS: x Labcorp Estim. Avg Glu (eAG) 134 mg/dL (.); x Labcorp Hemoglobin A1c 6.3 % (4.8-5.6)
== END ==
PROVIDERS: Family Provider Family Medicine; PCP Family Medicine; Referring Provider Internal Medicine Cardiovascular Disease; Visit Provider Internal Medicine Cardiovascular Disease
DX: E78.5 Hyperlipidemia, unspecified (principal); E03.9 Hypothyroidism, unspecified; E78.00 Pure hypercholesterolemia, unspecified; I10 Essential (primary) hypertension; K21.9 Gastro-esophageal reflux disease without esophagitis; R73.9 Hyperglycemia, unspecified
CPT/HCPCS: 36415; 80053; 80061; 80076; 83036; 84153; 84439; 84443; 85025

== ENCOUNTER 2023-02-20 15:00 | Outpatient (RCR) | payer MEDICARE, OTHER, SELFPAY ==
--- NOTE | 2023-02-08 16:47 | PT.OIE ---
Current Diagnoses Pain in left shoulder (02/08/23) Past Medical History (Last Reviewed 09/06/22 @ 15:26 by Nolan Smith DO) Acne Actinic keratosis (~2014) Chicken pox Chronic back pain (~1974) Coronary artery disease DISH (diffuse idiopathic skeletal hyperostosis) Encounter for well adult exam with abnormal findings Encounter for well adult exam with abnormal findings GERD (gastroesophageal reflux disease) (~1999) Hearing loss (~1970) Heel spur (~2018) Hemorrhoid (~1989) Hyperglycemia Hypothyroidism (acquired) Osteoarthritis (~2009) Plantar warts Seasonal allergies (~1950) Tinea Tinnitus (~1970) Vertigo (~2010) Vision disorder Past Surgical History (Last Reviewed 09/06/22 @ 15:26 by Nolan Smith DO) Anesthesia Heel spur History of appendectomy History of heart artery stent History of knee surgery (~2010) History of tonsillectomy Visit Care Team Role Provider Type Nolan Smith DO Family Provider Physician Primary Care Provider Specialty: Family Practice Address: [address] [place] [address] Email: [email or web address] [facility] MELISSA Haile Attending Provider [employer] Officer Referring Provider Specialty: Medical Address: [address] [place] [address], [facility] Email: [email or web address] Physical Therapy Initial Evaluation PT-OP-A Visit Information Start: 02/01/23 19:46 Freq: Status: Active Protocol: Document 02/08/23 13:21 LRN (Rec: 02/08/23 16:45 LRN [id number]) Out-Patient Physical Therapy Visit Information Visit Information Visit Type Initial Evaluation Visit Start Time 13:21 Visit Stop Time 14:09 Total Visit Minutes 48 Visit Number 08/13 Evaluation Information Evaluation Date 02/08/23 Precautions Precautions 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 PT-OP-B Current Condition Start: 02/01/23 19:46 Freq: Status: Active Protocol: Document 02/08/23 13:21 LRN (Rec: 02/08/23 16:45 LRN [id number]) Current Condition History of Current Condition Onset Date 1 month ago Current Complaints L shoulder pain. History of Current Condition L shoulder pain after sleeping . Thinks he slept on it wrong . Has been improving over the past 2 months, but still has pain on both sides, but L side if worse than the R. Not all the time has pain sleeping. L shoulder clicks sometimes with movement. Pain is caused by motion of tucking in shirt with L hand behind him. Doesn't hurt to fish or hike with poles. States X-rays show mild arthritis. Has ankylosing spondylosis with a little motion in the neck and none in the back. Has lots of tightness in the neck. Sleeps on the sides and is careful not to put hand behind head, otherwise gets pain in L shoulder. Prior Treatments and Tests X-rays. Treatment Goals Patient/Caregiver Goals Pt goal is to: Learn how to loosen the shoulder on a HEP. Personal Factors Other Personal Factors That May Effect Uses computer tablet at home. Therapy/Recovery Anklylosing Spondylosis with back/neck History of heart attack x 2, Diabetes type II PT-OP-C Subjective Start: 02/01/23 19:46 Freq: Status: Active Protocol: Document 02/08/23 13:21 LRN (Rec: 02/08/23 16:45 LRN [id number]) Patient Questionnaires Quick Dash- Upper Extremity Quick Dash UE Score 20.45 Quick Dash UE Impairment 20 to 39% Impaired (Score 20- 39) OP-PT Pain Assessment Pain Assessment Grid Paper Pain Assessment Grid Completed Yes Location Neck pain Pain Location Details Cervical paraspinals Intensity 3 Scale Used Numeric (0 - 10) Description Aching Frequency Daily L shoulder Pain Location Details Subacromial pain Intensity 3 Scale Used Numeric (0 - 10) Description- Other Aching in upper shoulder, sharp subacromial. Frequency Daily Comments Pain Comments Aches sleeping on it, and sharp pain reaching behind back. PT-OP-H Neuro Start: 02/01/23 19:46 Freq: Status: Active Protocol: Document 02/08/23 13:21 LRN (Rec: 02/08/23 16:45 LRN [id number]) Sensation Evaluation Gross Sensation Gross Sensation WNL Comments Summary Comments Hands go to sleep if sleep wrong. PT-OP-J Posture/Palpation/Skin Start: 02/01/23 19:46 Freq: Status: Active Protocol: Document 02/08/23 13:21 LRN (Rec: 02/08/23 16:45 LRN [id number]) Posture Evaluation Position Standing Head/C-Spine Posture Forward Head T-Spine Posture Increased Kyphosis Scapula Posture (L) Protracted,(L) Rotated Down,(L) Depressed Arm Posture (L) Neutral,(R) Internally Rotated Comments Posture Comments Poor scapulohumeral rhythm. Palpation Assessment Location Neck Palpation Location L C/S paraspinals. Palpation Findings Soft Tissue Tightness L shoulder Palpation Location L RC muscles. Palpation Details Atrophy of L supraspinatus, infraspinatus, PT-OP-K Range of Motion Start: 02/01/23 19:46 Freq: Status: Active Protocol: Document 02/08/23 13:21 LRN (Rec: 02/08/23 16:45 LRN [id number]) Cervical Spine Range of Motion Cervical Spine Active Degrees Testing Position Sitting Flexion 22 Extension 8 Rotation Left 22 Rotation Right 40 Lateral Flexion Left 5 Lateral Flexion Right 10 ROM Limitations Bony Restriction Shoulder Goniometric Range of Motion Shoulder Right Active Shoulder ROM WFL Yes Testing Position Sitting Flexion 150 Extension 72 Abduction 140 External Rotation at 0 degrees Abduction 67 Internal Rotation Behind Back (text) T11 Left Active Shoulder ROM WFL No Testing Position Sitting Flexion 145 Extension 46 Abduction 145 External Rotation at 0 degrees Abduction 52 Internal Rotation Behind Back (text) L1 PT-OP-L Special Tests Start: 02/01/23 19:46 Freq: Status: Active Protocol: Document 02/08/23 13:21 LRN (Rec: 02/08/23 16:45 LRN [id number]) Special Tests Shoulder Special Tests IR/Horizontal ADD Impingement Test Results + left Elevation Impingement Test Results + left PT-OP-M Strength Start: 02/01/23 19:46 Freq: Status: Active Protocol: Document 02/08/23 13:21 LRN (Rec: 02/08/23 16:45 LRN [id number]) Cervical Spine Strength Cervical Spine Manual Muscle Testing Comments Strength is 5/5in all muscle groups Shoulder Strength Shoulder Manual Muscle Testing Right Flexion 5 Normal Extension 5 Normal Abduction (C5) 5 Normal External Rotation 5 Normal Internal Rotation 5 Normal Left Flexion 5 Normal Extension 5 Normal Abduction (C5) 5 Normal External Rotation 5 Normal Internal Rotation 5 Normal Hand Veterans' Counselor/Pinch Strength Hand Dominance Hand Dominance Right PT-OP-Q Treatments Start: 02/01/23 19:46 Freq: Status: Active Protocol: Document 02/08/23 13:21 LRN (Rec: 02/08/23 16:45 LRN [id number]) Therapeutic Exercises Supine Exercises Shoulder ER Supine Exercise Name Shoulder ER stretch Side left Reps/Minutes 2 SH x 2 Sidelying Exercises Sleeper stretch Sidelying Exercise Name Sleeper stretch Side left Reps/Minutes 3' Self-Care/Home Management Treatment Education Patient Education Home Exercise Program Other Education Discussed results of evaluation, goals, and extra time taken to discuss plan of care (POC). Pt agreeable to goals and POC. Activities Self-Care/Home Management Activities Issue & reviewed handout for HEP: Shoulder mobility ex's for: flex (sitting arm table slide), IR (sleeper, towel in standing), verbal instruction for sup ER stretch. PT-OP-T Assessment and Plan Start: 02/01/23 19:46 Freq: Status: Active Protocol: Document 02/08/23 13:21 LRN (Rec: 02/08/23 16:45 LRN [id number]) Physical Therapy Assessment Rehab Potential Rehabilitation Potential Good Evaluation Complexity Number of Personal Factors/Comorbidities 3 or More Number of Body Systems Impaired 4 or More Clinical Presentation at Evaluation Evolving Impairments Impairments Functional Activities, Functional Mobility,Pain, Posture,ROM,Soft Tissue Mobility,Strength Goals Two Impairment Decreased L shoulder mobility Impairment Pain with reaching behind back to tuck in shirt. UE Quickdash score 20.45 (20- 39% impaired, score 20-39). Short Term Goal (STG) Pt will be educated in self care pain management with use of cryotherapy and self massage. STG Duration 03/20/23 Snf Goal (LTG) Pt will demonstrate improved L shoulder ROM for reaching behind his back with less pain . LTG Duration 05/09/23 One Impairment Pt lacks appropriate self care HEP. Short Term Goal (STG) Pt will be educated in proper sitting/standing/sidelie resting posture. STG Duration 03/01/23 Snf Goal (LTG) Pt will be independent in an effective self care HEP for L shoulder/neck mobility ex's and L RC/scapula strengthening /stabilizing. LTG Duration 05/09/23 Assessment Summary Assessment Pt is a 72 year old male who presents with L shoulder impingement syndrome and dysfunctional scapulohumeral rhythm from an insidious onset . Pt reporting waking with L shoulder pain and denies injury to neck or shoulder. The pt states his pain has slowly improved over the past 2 months and is now mainly present with sleeping and when tucking his shirt in from behind. He is only interested in being educated in ex's that he can do at home, but is open to further therapy if needed. We will start with educating the pt on a HEP, then seeing him for one more visit to determine if 4 more weeks of therapy would be appropriate. The pt would benefit from skilled physical therapy 2x/week for 4-6 weeks, but as previously stated he is choosing to be seen for 2 more visits for now. Physical Therapy Plan Frequency and Duration Frequency of Treatment 2x/Week Plan of Care Start Date 02/08/23 Plan of Care End Date 05/09/23 Therapeutic Interventions Therapeutic Interventions Home Exercise Program,Joint Mobilizations,Manual Therapy, Self-Care/Home Management,Soft Tissue Mobilization, Therapeutic Exercises Modalities Cold Pack/Ice Massage, Ultrasound Next Visit Focus/Plan Next Note Type Treatment Note Next Visit Plan Assess UE neural tension. Review issued HEP and educate and HEP for L shoulder ER stretch of shoulder flex ( stand and sup); RC strengthening (ER/IR) & scapular stabilization ( depression, retract/depression ), C. AROM, and self massage of L UT/cryotherapy for pain. Reassess after 2nd treatment visit for possible need of further therapy.
--- NOTE | 2023-02-08 16:48 | PT.OPPOC ---
Physical, Occupational & Speech Therapy At [facility] Current Diagnoses Pain in left shoulder (02/08/23) Visit Care Team Role Provider Type Nolan Smith DO Family Provider Physician Primary Care Provider Specialty: Family Practice Address: [address] [place] [address], [id number] Email: [email or web address] Haile Attending Provider Advanced Subeditor Referring Provider Specialty: Medical Address: [address] [place] [address], [id number] Email: [email or web address] Plan Of Care PT-OP-T Assessment and Plan Start: 02/01/23 19:46 Freq: Status: Active Protocol: Document 02/08/23 13:21 LRN (Rec: 02/08/23 16:45 LRN [id number]) Physical Therapy Assessment Rehab Potential Rehabilitation Potential Good Evaluation Complexity Number of Personal Factors/Comorbidities 3 or More Number of Body Systems Impaired 4 or More Clinical Presentation at Evaluation Evolving Impairments Impairments Functional Activities, Functional Mobility,Pain, Posture,ROM,Soft Tissue Mobility,Strength Goals Two Impairment Decreased L shoulder mobility Impairment Pain with reaching behind back to tuck in shirt. UE Quickdash score 20.45 (20- 39% impaired, score 20-39). Short Term Goal (STG) Pt will be educated in self care pain management with use of cryotherapy and self massage. STG Duration 03/20/23 Penitentiary Goal (LTG) Pt will demonstrate improved L shoulder ROM for reaching behind his back with less pain . LTG Duration 05/09/23 One Impairment Pt lacks appropriate self care HEP. Short Term Goal (STG) Pt will be educated in proper sitting/standing/sidelie resting posture. STG Duration 03/01/23 Shoe Cleaner Goal (LTG) Pt will be independent in an effective self care HEP for L shoulder/neck mobility ex's and L RC/scapula strengthening /stabilizing. LTG Duration 05/09/23 Assessment Summary Assessment Pt is a 72 year old male who presents with L shoulder impingement syndrome and dysfunctional scapulohumeral rhythm from an insidious onset . Pt reporting waking with L shoulder pain and denies injury to neck or shoulder. The pt states his pain has slowly improved over the past 2 months and is now mainly present with sleeping and when tucking his shirt in from behind. He is only interested in being educated in ex's that he can do at home, but is open to further therapy if needed. We will start with educating the pt on a HEP, then seeing him for one more visit to determine if 4 more weeks of therapy would be appropriate. The pt would benefit from skilled physical therapy 2x/week for 4-6 weeks, but as previously stated he is choosing to be seen for 2 more visits for now. Physical Therapy Plan Frequency and Duration Frequency of Treatment 2x/Week Plan of Care Start Date 02/08/23 Plan of Care End Date 05/09/23 Therapeutic Interventions Therapeutic Interventions Home Exercise Program,Joint Mobilizations,Manual Therapy, Self-Care/Home Management,Soft Tissue Mobilization, Therapeutic Exercises Modalities Cold Pack/Ice Massage, Ultrasound Next Visit Focus/Plan Next Note Type Treatment Note Next Visit Plan Assess UE neural tension. Review issued HEP and educate and HEP for L shoulder ER stretch of shoulder flex ( stand and sup); RC strengthening (ER/IR) & scapular stabilization ( depression, retract/depression ), C. AROM, and self massage of L UT/cryotherapy for pain. Reassess after 2nd treatment visit for possible need of further therapy. Plan of Care Dates Plan of Care Start Date 02/08/23 Plan of Care End Date 05/09/23 Electronically Signed by: Dora Gutierrez, PT 02/08/23 9476 If you are in agreement with this Plan of Care, please return a signed and dated copy. I have reviewed this Plan of Care and certify that the skilled therapy services above are required to meet the patient?s needs. Physician Signature Date Printed Name and Credentials Clinical Instructor Signature Printed Name and Credentials
--- NOTE | 2023-02-20 15:53 | PT.OTN ---
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 PT-OP-B Current Condition Start: 02/01/23 19:46 Freq: Status: Active Protocol: Document 02/08/23 13:21 LRN (Rec: 02/08/23 16:45 LRN [id number]) Current Condition History of Current Condition Onset Date 1 month ago Current Complaints L shoulder pain. History of Current Condition L shoulder pain after sleeping . Thinks he slept on it wrong . Has been improving over the past 2 months, but still has pain on both sides, but L side if worse than the R. Not all the time has pain sleeping. L shoulder clicks sometimes with movement. Pain is caused by motion of tucking in shirt with L hand behind him. Doesn't hurt to fish or hike with poles. States X-rays show mild arthritis. Has ankylosing spondylosis with a little motion in the neck and none in the back. Has lots of tightness in the neck. Sleeps on the sides and is careful not to put hand behind head, otherwise gets pain in L shoulder. Prior Treatments and Tests X-rays. Treatment Goals Patient/Caregiver Goals Pt goal is to: Learn how to loosen the shoulder on a HEP. Personal Factors Other Personal Factors That May Effect Uses computer tablet at home. Therapy/Recovery Anklylosing Spondylosis with back/neck History of heart attack x 2, Diabetes type II PT-OP-C Subjective Start: 02/01/23 19:46 Freq: Status: Active Protocol: Document 02/20/23 14:58 LRN (Rec: 02/20/23 15:50 LRN [id number]) OP-PT Subjective Patient Comments Patient Comments Feeling better everyday, not as sore and plenty of movement . Just a little achy in L brachium. Patient Questionnaires Quick Dash- Upper Extremity Quick Dash UE Score 9.09 Quick Dash UE Impairment 1 to 19% Impaired (Score 1-19) PT-OP-H Neuro Start: 02/01/23 19:46 Freq: Status: Active Protocol: Document 02/08/23 13:21 LRN (Rec: 02/08/23 16:45 LRN [id number]) Sensation Evaluation Gross Sensation Gross Sensation WNL Comments Summary Comments Hands go to sleep if sleep wrong. PT-OP-J Posture/Palpation/Skin Start: 02/01/23 19:46 Freq: Status: Active Protocol: Document 02/08/23 13:21 LRN (Rec: 02/08/23 16:45 LRN [id number]) Posture Evaluation Position Standing Head/C-Spine Posture Forward Head T-Spine Posture Increased Kyphosis Scapula Posture (L) Protracted,(L) Rotated Down,(L) Depressed Arm Posture (L) Neutral,(R) Internally Rotated Comments Posture Comments Poor scapulohumeral rhythm. Palpation Assessment Location Neck Palpation Location L C/S paraspinals. Palpation Findings Soft Tissue Tightness L shoulder Palpation Location L RC muscles. Palpation Details Atrophy of L supraspinatus, infraspinatus, PT-OP-K Range of Motion Start: 02/01/23 19:46 Freq: Status: Active Protocol: Document 02/08/23 13:21 LRN (Rec: 02/08/23 16:45 LRN [id number]) Cervical Spine Range of Motion Cervical Spine Active Degrees Testing Position Sitting Flexion 22 Extension 8 Rotation Left 22 Rotation Right 40 Lateral Flexion Left 5 Lateral Flexion Right 10 ROM Limitations Bony Restriction Shoulder Goniometric Range of Motion Shoulder Right Active Shoulder ROM WFL Yes Testing Position Sitting Flexion 150 Extension 72 Abduction 140 External Rotation at 0 degrees Abduction 67 Internal Rotation Behind Back (text) T11 Left Active Shoulder ROM WFL No Testing Position Sitting Flexion 145 Extension 46 Abduction 145 External Rotation at 0 degrees Abduction 52 Internal Rotation Behind Back (text) L1 PT-OP-L Special Tests Start: 02/01/23 19:46 Freq: Status: Active Protocol: Document 02/08/23 13:21 LRN (Rec: 02/08/23 16:45 LRN [id number]) Special Tests Shoulder Special Tests IR/Horizontal ADD Impingement Test Results + left Elevation Impingement Test Results + left PT-OP-M Strength Start: 02/01/23 19:46 Freq: Status: Active Protocol: Document 02/08/23 13:21 LRN (Rec: 02/08/23 16:45 LRN [id number]) Cervical Spine Strength Cervical Spine Manual Muscle Testing Comments Strength is 5/5in all muscle groups Shoulder Strength Shoulder Manual Muscle Testing Right Flexion 5 Normal Extension 5 Normal Abduction (C5) 5 Normal External Rotation 5 Normal Internal Rotation 5 Normal Left Flexion 5 Normal Extension 5 Normal Abduction (C5) 5 Normal External Rotation 5 Normal Internal Rotation 5 Normal Hand Train Control Technician/Pinch Strength Hand Dominance Hand Dominance Right PT-OP-Q Treatments Start: 02/01/23 19:46 Freq: Status: Active Protocol: Document 02/20/23 14:58 LRN (Rec: 02/20/23 15:50 LRN [id number]) Therapeutic Exercises Sidelying Exercises Sleeper stretch Sidelying Exercise Name Sleeper stretch Side left Reps/Minutes 10SH x 10 Comments Pt gets onto table on the L side. Standing Exercises Scapular retraction Standing Exercise Name Scapular retraction - row Side bilateral Reps/Minutes 15x Scap retract/depression Standing Exercise Name Scap retract/depression - Lat pull down Side bilateral Reps/Minutes 15x 2 Reaching out to side Standing Exercise Name Median n glide: Reaching out to side Side bilateral Reps/Minutes 10x each looking in direction of reach. Ball pass behind Standing Exercise Name Radial n glide: Ball pass behind Side bilateral Reps/Minutes 15x, & 5x w/head in rotation each direction. Shoulder Butterfly ex Standing Exercise Name Ulnar n glide: Butterfly ex Side bilateral Reps/Minutes 15x Shoulder ER strengthening Standing Exercise Name Shoulder ER strengthening Side bilateral Equipment Used Lev 2 TBand Reps/Minutes 15x 2 Comments Extra time to determine max tolerated movement Shoulder IR strengthening Standing Exercise Name Shoulder IR strengthening Side bilateral Equipment Used Lev 2 TBand Reps/Minutes 15x 2 Self-Care/Home Management Treatment Education Patient Education Home Exercise Program,Pain Management,Posture Other Education Educated and discussed: -Pain management (RICE technique) with focus on rest and ice after injury to joint. -Proper sitting, and sidelie posture. Discussed proper standing posture. - Activities Self-Care/Home Management Activities Issued & reviewed HEP: TBand shoulder ER/IR strengthening, and shoulder flexion stretching. Issued Lev 2 TBand . I/S pt in active C. ROM. PT-OP-T Assessment and Plan Start: 02/01/23 19:46 Freq: Status: Active Protocol: Document 02/20/23 14:58 LRN (Rec: 02/20/23 15:50 LRN [id number]) Physical Therapy Assessment Goals Two Impairment Decreased L shoulder mobility Impairment Pain with reaching behind back to tuck in shirt. UE Quickdash score 20.45 (20- 39% impaired, score 20-39). Short Term Goal (STG) Pt will be educated in self care pain management with use of cryotherapy and self massage. STG Duration 03/20/23 (02/20/23: Goal partially met) Hospital Manager Goal (LTG) Pt will demonstrate improved L shoulder ROM for reaching behind his back with less pain . 02/20/23: Pt demonstrates ability to reach behind back, reach overhead and out to side without pain, only achy in L lateral brachium. LTG Duration 05/09/23 (02/20/23: MET GOAL ) One Impairment Pt lacks appropriate self care HEP. Short Term Goal (STG) Pt will be educated in proper sitting/standing/sidelie resting posture. STG Duration 03/01/23 (02/20/23: MET GOAL ) Hospital Manager Goal (LTG) Pt will be independent in an effective self care HEP for L shoulder/neck mobility ex's and L RC/scapula strengthening /stabilizing. LTG Duration 05/09/23 (02/20/23: MET GOAL) Assessment Summary Assessment No onset of L brachium pain with n glides or RC strengthening. Pt able to perform shoulder AB without L shoulder pain. He showed good understanding of shoulder ROM and strengthening of RC and is able to perform C. AROM without pain or difficulty. Pt is having no c/o L shoulder pain and has improved function per UE QuickDASH score of 9, 1-19% impairment ( was 20, 20-39% impairment); therefore he his ready for DC to his HEP. Physical Therapy Plan Frequency and Duration Plan of Care Start Date 02/08/23 Plan of Care End Date 05/09/23 Discharge Physical Therapy Discharge Reasons Goals Met Discharge Comments Thank you for your referral.
== END 2023-02-22 16:32 | disposition home or self-care (01) ==
LOC: PHYS 15:00
PROVIDERS: Absent Provider Family Medicine; Family Provider Family Medicine; PCP Family Medicine; Referring Provider Nurse Practitioner Family; Visit Provider Nurse Practitioner Family
DX: M25.512 Pain in left shoulder (principal)
CPT/HCPCS: 97110; 97162

== ENCOUNTER 2023-08-23 01:19 | Inpatient (IN) | payer MEDICARE, OTHER, SELFPAY ==
[2023-08-23] VITALS (17 sets, daily range): BP systolic 129–206; BP diastolic 64–93; PULSE 68–87; RESP 13–24; TEMP 35.9–36.4; O2SAT 94–100; BMI 30.9
--- NOTE | 2023-08-23 01:31 | DI.US.S_ITS ---
PROCEDURE: US ABDOMEN LIMITED INDICATIONS: epigastric pain, nausea TECHNIQUE: Real-time scanning was performed of the abdominal and retroperitoneal organs, with image documentation. COMPARISON: [facility], CT, CT ABDOMEN PELVIS W CON, 08/23/2023, 3:33. FINDINGS: Liver: Liver is borderline enlarged 17.6 cm and diffusely increased in echogenicity with posterior acoustic attenuation. Gallbladder: Gallbladder is distended. Numerous tiny gallstones are seen in the dependent portion of the gallbladder. No gallbladder wall thickening or pericholecystic fluid. Sonographic Bartholomew sign is positive. Biliary ducts: Intrahepatic bile ducts are non-dilated. Extrahepatic bile duct caliber measures 4 mm. Distal common bile duct is not well seen. Normal is 6-7 mm or less in diameter, or 10 mm or less post-cholecystectomy. Pancreas: Pancreas is not well visualized due to overlying bowel gas. Miscellaneous: No free abdominal fluid. IMPRESSION: 1. Distended gallbladder with multiple tiny dependent gallstones. No gallbladder wall thickening or pericholecystic fluid. Sonographic Bartholomew sign is positive. Findings are equivocal for acute cholecystitis. Recommend correlation with clinical findings. MRCP or nuclear medicine HIDA scan could be performed for further evaluation. 2. Diffusely increased hepatic echogenicity is nonspecific, but most commonly encountered in the setting of hepatic steatosis. However, other causes of hepatocellular disease are not excluded. Recommend clinical correlation. There is no significant discrepancy when compared to the overnight preliminary report. Approved by: Alen Go M.D. on 08/23/2023 at 8:19
--- NOTE | 2023-08-23 01:33 | ED.GENADULT ---
HPI - General Adult General Chief complaint: Abdominal Pain Stated complaint: CHEST PAIN Time Seen by Provider: 08/23/23 01:29 History of Present Illness HPI narrative: 72-year-old male with cardiac history presents with his in the chief complaint of upper abdominal discomfort and bloating over the course of the night. He states he has some nausea and feels like he has gas in his abdomen. His pain is worse when he moves or takes a deep breath. Denies any radiation of the pain. He has not dizzy nor weak or lightheaded. Denies exertional symptoms or exercise intolerance. Denies chest pain or shortness of breath. He is nauseated but denies vomiting. He denies any change in bowel habits. Related Data Home Medications Medication Instructions Recorded Confirmed aspirin 81 mg tablet,delayed 81 mg PO DAILY 06/25/18 08/23/23 release (Adult Aspirin Regimen) fluticasone propionate 50 1 spray intranasal DAILY 06/25/18 08/23/23 mcg/actuation nasal spray,suspension (Flonase Allergy Relief) metoprolol succinate 25 mg 25 mg PO BID 02/16/22 08/24/23 tablet,extended release 24 hr cetirizine 10 mg capsule (All Day 10 mg PO DAILY 01/02/23 08/23/23 Allergy (cetirizine)) lisinopril 10 mg tablet 10 mg PO DAILY 01/02/23 08/23/23 omeprazole 20 mg capsule,delayed 20 mg PO DAILY 01/02/23 08/23/23 release Previous Rx's Medication Instructions Recorded metformin 500 mg tablet 500 mg PO BID #180 tabs 09/11/22 nitroglycerin 0.4 mg sublingual See Rx Instructions .Route 11/13/22 tablet .COMPLEX #25 tabs levothyroxine 50 mcg tablet See Rx Instructions .Route 06/05/23 .COMPLEX #90 tabs atorvastatin 40 mg tablet 40 mg PO BEDTIME #90 tabs 07/03/23 hydrocortisone-acetic acid 1 %-2 % 2 drp otic (ear) TID PRN Ear 07/03/23 ear drops discomfort #10 mL Allergies Allergy/AdvReac Type Severity Reaction Status Date / Time crab Allergy Verified 07/03/23 13:33 hydrocodone Allergy Verified 07/03/23 13:33 Iodinated Contrast Media Allergy Verified 07/03/23 13:33 oxycodone Allergy Verified 07/03/23 13:33 Review of Systems Review of Systems Narrative: GENERAL: Denies chills, fatigue, malaise, fever, sweats. HEENT: Denies sinus pain, ear pain, sore throat, difficulty swallowing, dizziness. RESPIRATORY: Denies dyspnea, cough, wheezing, hemoptysis, sputum. CARDIOVASCULAR: Denies chest pain, palpitations, orthopnea, edema, GASTROINTESTINAL: See HPI : Denies dysuria, frequency, incontinence, hematuria, urinary retention. MUSCULOSKELETAL: denies weakness, joint pain, or bony pain SKIN: Denies rash, skin lesions, or other NEUROLOGIC: Denies weakness, headache, numbness, change in speech, confusion, seizures, incoordination. PSYCHIATRIC: No concerning psychosocial issues. 12 point review of systems is negative except for those stated above Patient History Medical History Bilateral adhesive capsulitis of shoulders Encounter for well adult exam with abnormal findings Encounter for well adult exam with abnormal findings DISH (diffuse idiopathic skeletal hyperostosis) Hyperglycemia Tinea Vision disorder Plantar warts Actinic keratosis (~2014) Acne Osteoarthritis (~2009) Heel spur (~2018) Chronic back pain (~1974) Chicken pox Vertigo (~2010) Tinnitus (~1970) Hearing loss (~1970) Hemorrhoid (~1989) GERD (gastroesophageal reflux disease) (~1999) Seasonal allergies (~1950) Hypothyroidism (acquired) Coronary artery disease Surgical History Anesthesia History of knee surgery (~2010) Heel spur History of appendectomy History of tonsillectomy History of heart artery stent Family History Mother Hypertension History of heart disease Dementia Father Hypertension History of heart disease Sister Diabetes mellitus Grandfather History of heart disease Grandmother History of heart disease Social History household members: spouse Smoking Status: Never smoker Smoking Status: Never smoker alcohol intake frequency: 0-2 drinks per day Substance Use Type: does not use Exam Narrative Exam Narrative: GENERAL: [72] year old patient appears stated age. Well-developed patient, in mild distress. HEAD: Atraumatic. Normocephalic. EYES: Pupils equal round and reactive. Extraocular motions intact. No scleral icterus. No injection or drainage. ENT: Nose without bleeding, purulent drainage. Throat without erythema, tonsillar hypertrophy or exudate. Airway patent. NECK: Trachea midline. Non tender CARDIOVASCULAR: Regular rate and rhythm without murmurs, gallops, or rubs. RESPIRATORY: Clear to auscultation. Breath sounds equal bilaterally. No wheezes, rales, or rhonchi. GASTROINTESTINAL: Abdomen soft, slightly distended, tender in the epigastrium and right upper quadrant, bowel sounds present EXTREMITIES: No edema or joint tenderness. BACK: Nontender without deformity or crepitance. No flank tenderness. NEURO: AOx3. SKIN: No rash or erythema of visible areas Initial Vital Signs Initial Vital Signs: Vital Signs Temperature 96.7 F L 08/23/23 01:25 Pulse Rate 81 08/23/23 01:25 Respiratory Rate 16 08/23/23 01:25 Blood Pressure 206/91 H 08/23/23 01:25 Pulse Oximetry 98 08/23/23 01:25 Oxygen Delivery Method Room Air 08/23/23 01:25 Course Orders Ordered: Acetaminophen (Acetaminophen 325 Mg Tablet) 650 mg PO Q6H [facility] [place] Last Admin: 08/25/23 05:49 Dose: 650 mg Documented By: Admin: 08/25/23 02:11 Dose: 650 mg Documented By: Admin: 08/24/23 18:01 Dose: Not Given Documented By: Admin: 08/24/23 11:46 Dose: Not Given Documented By: Admin: 08/24/23 06:03 Dose: Not Given Documented By: Admin: 08/24/23 01:44 Dose: 650 mg Documented By: Admin: 08/23/23 17:52 Dose: 650 mg Documented By: Admin: 08/23/23 11:53 Dose: 650 mg Documented By: Admin: 08/23/23 08:35 Dose: 650 mg Documented By: Atorvastatin Calcium (Atorvastatin 20 Mg Tablet) 40 mg PO BEDTIME [facility] [place] Last Admin: 08/24/23 20:17 Dose: 40 mg Documented By: Admin: 08/23/23 21:51 Dose: 40 mg Documented By: SHANDRA Hydromorphone HCl (Hydromorphone 0.5 Mg Inj) 0.5 mg IV Q2H PRN PRN Reason: Pain, Severe (7-10) Last Admin: 08/24/23 08:49 Dose: 0.5 mg Documented By: Admin: 08/23/23 08:36 Dose: 0.5 mg Documented By: MS Sodium Chloride (Normal Saline 0.9%) 1,000 mls @ 100 mls/hr IV CONT [facility] [place] Last Admin: 08/24/23 14:21 Dose: 100 mls/hr Documented By: Infusion: 08/24/23 14:21 Dose: Infused Documented By: Admin: 08/24/23 04:28 Dose: 100 mls/hr Documented By: Infusion: 08/24/23 04:28 Dose: Infused Documented By: Admin: 08/23/23 18:54 Dose: 100 mls/hr Documented By: Infusion: 08/23/23 18:36 Dose: Infused Documented By: Admin: 08/23/23 08:36 Dose: 100 mls/hr Documented By: MS Piperacillin Sod/Tazobactam (Sod 3.375 gm/ Sodium Chloride) 100 mls @ 25 mls/hr IV Q8H [facility] [place] Last Admin: 08/25/23 09:14 Dose: 25 mls/hr Documented By: Infusion: 08/25/23 06:46 Dose: Infused Documented By: Admin: 08/25/23 02:11 Dose: 25 mls/hr Documented By: Infusion: 08/24/23 23:42 Dose: Infused Documented By: Admin: 08/24/23 18:30 Dose: 25 mls/hr Documented By: Infusion: 08/24/23 14:40 Dose: Infused Documented By: Admin: 08/24/23 10:35 Dose: 25 mls/hr Documented By: Infusion: 08/24/23 06:31 Dose: Infused Documented By: Admin: 08/24/23 01:43 Dose: 25 mls/hr Documented By: Infusion: 08/23/23 21:52 Dose: Infused Documented By: Admin: 08/23/23 17:52 Dose: 25 mls/hr Documented By: MS Levothyroxine Sodium (Levothyroxine 50 Mcg Tablet) 50 mcg PO DAILY@0600 [facility] [place] Last Admin: 08/25/23 05:49 Dose: 50 mcg Documented By: Admin: 08/24/23 06:03 Dose: Not Given Documented By: Admin: 08/23/23 08:35 Dose: 50 mcg Documented By: Metoprolol Succinate (Metoprolol Er 25 Mg Tablet) 50 mg PO BID [facility] [place] Last Admin: 08/25/23 09:13 Dose: 50 mg Documented By: Admin: 08/24/23 20:17 Dose: 50 mg Documented By: Admin: 08/24/23 08:49 Dose: 50 mg Documented By: Admin: 08/23/23 21:51 Dose: 50 mg Documented By: Admin: 08/23/23 08:35 Dose: 50 mg Documented By: Naloxone HCl (Naloxone 0.4 Mg/Ml Vial) 0.2 mg IV Q2MIN PRN PRN Reason: Opiate Reversal Nitroglycerin (Nitroglycerin 0.4 Mg Sl Tab) 0.4 mg SL PRN PRN PRN Reason: CHEST PAIN Ondansetron HCl (Ondansetron 4 Mg/2 Ml Inj) 4 mg IV Q8HR PRN PRN Reason: Nausea And Vomiting Pantoprazole Sodium (Pantoprazole Dr 40 Mg Tablet) 40 mg PO 0600 [facility] [place] Last Admin: 08/25/23 05:49 Dose: 40 mg Documented By: SHANDRA Discontinued Medications Bupivacaine HCl (Bupivacaine 0.25% (Pf) Vial) 30 ml INJ NOW ONE Stop: 08/24/23 16:57 Last Admin: 08/24/23 16:56 Dose: 30 ml Documented By: MARY(2) Diphenhydramine HCl (Diphenhydramine 50 Mg/Ml Vial) 25 mg IV NOW ONE Stop: 08/23/23 03:03 Last Admin: 08/23/23 03:06 Dose: 25 mg Documented By: TELLO Famotidine (Famotidine 20 Mg/2 Ml Vial) 20 mg IV NOW [facility] [place] Last Admin: 08/23/23 03:05 Dose: 20 mg Documented By: TELLO Hydromorphone HCl (Hydromorphone 0.5 Mg Inj) 0.5 mg IV NOW ONE Stop: 08/23/23 02:48 Last Admin: 08/23/23 03:05 Dose: 0.5 mg Documented By: TELLO Hydromorphone HCl (Hydromorphone 0.5 Mg Inj) 0.5 mg IV NOW ONE Stop: 08/23/23 04:44 Last Admin: 08/23/23 04:48 Dose: 0.5 mg Documented By: JODIE Hydromorphone HCl (Hydromorphone 1 Mg Inj) 0 mg IV Q5MIN PRN PRN Reason: Pain, Moderate (4-6) Last Admin: 08/24/23 17:45 Dose: 0.5 mg Documented By: TM Hydromorphone HCl (Hydromorphone 1 Mg Inj) 0 mg IV Q5MIN PRN PRN Reason: Pain, Mild (1-3) Sodium Chloride (Normal Saline 0.9%) 1,000 mls @ 1,000 mls/hr IV BOLUS ONE Stop: 08/23/23 02:28 Last Infusion: 08/23/23 03:16 Dose: Infused Documented By: Admin: 08/23/23 01:47 Dose: 1,000 mls/hr Documented By: BB Piperacillin Sod/Tazobactam (Sod 4.5 gm/ Sodium Chloride) 100 mls @ 200 mls/hr IV NOW ONE Stop: 08/23/23 14:29 Last Infusion: 08/23/23 17:07 Dose: Infused Documented By: Admin: 08/23/23 14:46 Dose: 200 mls/hr Documented By: BT Lactated Ringer's (Lactated Ringers) 1,000 mls @ 42 mls/hr IV CONT [facility] Last Admin: 08/23/23 16:44 Dose: Not Given Documented By: BT Cefazolin Sodium 2 gm/ Sodium (Chloride) 100 mls @ 200 mls/hr IV NOW ONE Stop: 08/24/23 17:22 Last Infusion: 08/24/23 16:28 Dose: Infused Documented By: Admin: 08/24/23 16:23 Dose: 200 mls/hr Documented By: AB Acetaminophen (Ofirmev) 1,000 mg in 100 mls @ 400 mls/hr IV NOW ONE Stop: 08/24/23 17:10 Last Admin: 08/24/23 16:15 Dose: 400 mls/hr Documented By: AB Methylprednisolone (Methylprednisolone 125 Mg/2 Ml Vial) 125 mg IV NOW ONE Stop: 08/23/23 03:03 Last Admin: 08/23/23 03:06 Dose: 125 mg Documented By: BB Ondansetron HCl (Ondansetron 4 Mg/2 Ml Inj) 4 mg IV NOW ONE Stop: 08/23/23 01:44 Last Admin: 08/23/23 01:51 Dose: 4 mg Documented By: TELLO Ondansetron HCl (Ondansetron 4 Mg/2 Ml Inj) 4 mg IV NOW PRN PRN Reason: Nausea And Vomiting Pantoprazole Sodium (Pantoprazole 40 Mg Vial) 40 mg IV NOW ONE Stop: 08/23/23 01:30 Last Admin: 08/23/23 01:48 Dose: 40 mg Documented By: TELLO Pantoprazole Sodium (Pantoprazole 40 Mg Vial) 40 mg IV DAILY [facility] [place] Last Admin: 08/24/23 08:50 Dose: 40 mg Documented By: Admin: 08/23/23 08:35 Dose: 40 mg Documented By: Vital Signs Vital signs: Vital Signs - 8 hr 08/23/23 01:25 08/23/23 01:25 08/23/23 01:25 Temperature 96.7 F L Pulse Rate 81 74 Respiratory Rate 16 18 Blood Pressure 206/91 H 206/91 H Pulse Oximetry 98 99 Oxygen Delivery Method Room Air 08/23/23 01:30 08/23/23 01:30 08/23/23 02:00 Temperature Pulse Rate 77 72 Respiratory Rate 13 19 Blood Pressure 203/93 H Pulse Oximetry 99 99 Oxygen Delivery Method Room Air 08/23/23 02:00 08/23/23 02:10 08/23/23 02:10 Temperature Pulse Rate 68 Respiratory Rate 13 Blood Pressure 190/81 H 192/86 H Pulse Oximetry 98 Oxygen Delivery Method 08/23/23 02:30 08/23/23 02:31 08/23/23 02:31 Temperature Pulse Rate 71 73 Respiratory Rate 16 24 Blood Pressure 206/88 H Pulse Oximetry 100 99 Oxygen Delivery Method Medical Decision Making Lab Data 08/25/23 09:35 08/25/23 09:35 Labs: Lab Results 08/23/23 08/23/23 Range/Units 01:35 02:10 WBC 7.8 (4.5-11.0) X10^3/uL RBC 4.93 (4.5-5.9) X10^6/uL Hgb 15.3 (13.5-17.5) g/dL Hct 44.5 (41-53) % MCV 90.3 (80-100) fL MCH 31.0 (26-34) PG MCHC 34.3 (30-36) % RDW 13.6 (11.6-14.8) % Plt Count 226 (150-400) X10^3/uL Neut % (Auto) 58.0 (50-75) % Lymph % (Auto) 31.3 (25-40) % [place] % (Auto) 9.4 (3-14) % Eos % (Auto) 0.8 L (2-4) % Baso % (Auto) 0.5 (0-2) % Neut # (Auto) 4500 (0644-8758) /uL Lymph # (Auto) 2400 (9179-8845) /uL [place] # (Auto) 700 (0-900) /uL Eos # (Auto) 100 (0-450) /uL Baso # (Auto) 0 (0-100) /uL Sodium 138 (137-145) mmol/L Potassium 3.7 (3.4-5.1) mmol/L Chloride 98 (98-107) mmol/L Carbon Dioxide 27 (22-32) mmol/L BUN 10 (9-20) mg/dL Creatinine 0.83 (0.66-1.25) mg/dL Estimated GFR > 60 (>60) mL/min BUN/Creatinine Ratio 12.0 (6-22) Glucose 147 H (80-110) mg/dL Calcium 10.0 (8.4-10.2) mg/dL Magnesium 1.9 (1.6-2.3) mg/dL Total Bilirubin 0.7 (0.2-1.3) mg/dL AST 51 (17-59) IU/L ALT 49 (<50) IU/L Alkaline Phosphatase 60 (38-126) U/L Total Creatine Kinase 107 (55-170) U/L Troponin I < 0.012 (0.01-0.034) ng/mL Total Protein 7.5 (6.3-8.2) g/dL Albumin 4.5 (3.5-5.0) g/dL Globulin 3.0 (1.7-4.1) g/dL Albumin/Globulin Ratio 1.5 (1.0-2.8) Lipase 129 (23-300) U/L Urine RBC 0-1/hpf (0-5/HPF) Urine WBC None seen (0-5/HPF) Ur Squamous Epith Cells 0-1 /hpf (0-5/HPF) Urine Bacteria None seen (None) Urine Mucus 1+ H (Negative) Ur Culture Indicated? Cult not indicated Vol Urine Centrifuged 10ml (spun) Urine Dip Bedside Urine Glucose Negative Bedside Urine Bilirubin - Negative Bedside Urine Ketone + 15 Urine Specific [place] 1.02 Bedside Urine Occult Blood +/- Bedside Urine pH 6 Bedside Urine Protein + 30 Bedside Urine Urobilinogen - Negative Bedside Urine Nitrite - Negative Bedside Urine Leukocytes - Negative Esterase Point of care testing: Urine Dip Bedside Urine Glucose Negative Bedside Urine Bilirubin - Negative Bedside Urine Ketone + 15 Urine Specific [place] 1.02 Bedside Urine Occult Blood +/- Bedside Urine pH 6 Bedside Urine Protein + 30 Bedside Urine Urobilinogen - Negative Bedside Urine Nitrite - Negative Bedside Urine Leukocytes - Negative Esterase ECG Data Interpretation: [0130] EKG is normal sinus rhythm rate [ 74] and free of any signs of ischemia or ectopy. No ST segmental elevation or depression. No T wave inversions MDM Narrative Medical decision making narrative: [72] year old patient presents with epigastric and right upper quadrant pain Multiple etiologies for patient's symptoms considered including, but not limited to: [Gallbladder disease versus pancreatitis versus cardiac ischemia versus pulmonary embolism versus other] Prior Charts reviewed in our EMR Primary Historian: patient Labs reviewed and interpreted by myself: Patient has leukocytosis with left shift, no significant abnormalities in the complete metabolic profile, no evidence of pancreatitis or obstructive process with the biliary system Imaging reviewed: Ultrasound nose distended gallbladder with multiple gallstones, no thickening or pericholecystic fluids. Preliminary read suggested stone stuck within the neck of the gallbladder. CT demonstrates descending gallbladder with cholelithiasis, early cholecystitis is considered Consultations: Discussed with Dr. Mejia, general surgery, recommends admission to hospitalist. Discussion with hospitalist, happy to accept on his service. Patient admitted to the hospital for definitive management of gallbladder disease, likely surgical intervention later in the day. Patient understands and agrees with diagnosis and plan Discharge Plan Departure Patient Disposition: Admitted As Inpatient Clinical Impression: Gallstones Admit Date/Time: 08/23/23 06:06 Admit Provider: Yassine Wyatt
[2023-08-23] MEDS: SODIUM CHLORIDE 0.9% 1,000 ML 1000 ML IV (01:47)
[2023-08-23] MEDS: PANTOPRAZOLE 40 MG VIAL IV ×2 (01:48→08:35)
[2023-08-23] MEDS: ONDANSETRON 4 MG/2 ML INJ IV (01:51)
[2023-08-23 01:55] LABS: Add Manual Diff / Slide Review NO; Basophils Absolute Auto 0 /uL (0-100); Basophils Percent Auto 0.5 % (0-2); Eosinophils Absolute Auto 100 /uL (0-450); Eosinophils Percent Auto 0.8 % (2-4); Hematocrit 44.5 % (41-53); Hemoglobin 15.3 g/dL (13.5-17.5); Lymphocytes Absolute Auto 2400 /uL (1100-4500); Lymphocytes Percent Auto 31.3 % (25-40); Mean Corpuscular HGB Conc 34.3 % (30-36); Mean Corpuscular Volume 90.3 fL (80-100); Monocytes Absolute Auto 700 /uL (0-900); Monocytes Percent Auto 9.4 % (3-14); Neutrophils Absolute Auto 4500 /uL (1500-7000); Platelet Count 226 X10^3/uL (150-400); Red Blood Cell Count 4.93 X10^6/uL (4.5-5.9); Red Cell Distribution Width 13.6 % (11.6-14.8); White Blood Cell Count 7.8 X10^3/uL (4.5-11.0)
[2023-08-23 01:57] LABS: Alanine Aminotransferase 49 IU/L (<50); Albumin 4.5 g/dL (3.5-5.0); Albumin Globulin Ratio 1.5 (1.0-2.8); Alkaline Phosphatase 60 U/L (38-126); Aspartate Aminotransferase 51 IU/L (17-59); Bilirubin Total 0.7 mg/dL (0.2-1.3); Blood Urea Nitrogen 10 mg/dL (9-20); Carbon Dioxide 27 mmol/L (22-32); Chloride 98 mmol/L (98-107); Creatine Kinase 107 U/L (55-170); Estimated Glomerular Filt Rate > 60 mL/min (>60); Glucose 147 mg/dL (80-110); HEMOLYSIS < 15 (0-50); Lipase 129 U/L (23-300); Magnesium 1.9 mg/dL (1.6-2.3); Potassium 3.7 mmol/L (3.4-5.1); Sodium 138 mmol/L (137-145); Total Protein 7.5 g/dL (6.3-8.2)
[2023-08-23 02:08] LABS: Troponin I < 0.012 ng/mL (0.01-0.034)
[2023-08-23 02:16] LABS: Urine Volume 10mL (spun)
[2023-08-23 02:24] LABS: Bacteria Urine None Seen; Culture Indicated Urine Cult Not Indicated; Mucus Urine 1+ (Negative); RBC Urine 0-1/HPF (0-5/HPF); Squamous Epithelial Cell Urine 0-1 /HPF (0-5/HPF); WBC Urine None Seen (0-5/HPF)
--- NOTE | 2023-08-23 02:47 | DI.CT.S_ITS ---
PROCEDURE: CT ABDOMEN PELVIS W CON INDICATIONS: severe abdominal pain TECHNIQUE: After the administration of intravenous contrast, axial sections acquired from the lung bases to the pubic symphysis. Coronal and sagittal reformats were performed. For radiation dose reduction, the following was used: automated exposure control, adjustment of mA and/or kV according to patient size. COMPARISON: None. FINDINGS: Image quality: Diagnostic. Lower Chest: Cardiomegaly. ABDOMEN: Liver: Hepatic steatosis. Gallbladder: Cholelithiasis with gallbladder distension. No intrahepatic or extrahepatic biliary dilation. Biliary ducts: No biliary dilation. Pancreas: No ductal dilation. Punctate calcification in the head. Spleen: Size is within normal limits. Adrenal Glands: No adrenal nodules. Kidneys and Ureters: No hydronephrosis. No solid mass. No complex renal cystic lesion which requires follow up. Stomach and Bowel: Mild wall thickening of the hepatic flexure. Fecal debris within the small bowel. Peritoneum: No abnormal intraperitoneal fluid. No free air. Ventral Wall: No hernia. Abdominal Nodes: No retroperitoneal or mesenteric adenopathy by size criteria. Vessels: Aorta and inferior vena cava are normal in size. PELVIS: Pelvic Organs: Unremarkable. Bladder: Unremarkable. Pelvic Nodes: No enlarged lymph nodes. Miscellaneous: No inguinal hernias are seen. Bones: No aggressive osseous abnormality. IMPRESSION: Mild wall thickening of the patent flexure, which may be due to haustral contractions or mild colitis. Distended gallbladder with cholelithiasis. Early acute cholecystitis is a consideration. Correlate with right upper quadrant pain. Fecal debris within the small-bowel, usually indicating small intestinal bacterial overgrowth versus slow transit. Agree with preliminary report. Dictated by: Pravin Lee M.D. on 08/23/2023 at 8:17 Approved by: Pravin Lee M.D. on 08/23/2023 at 8:20
[2023-08-23] MEDS: HYDROMORPHONE 0.5 MG INJ IV ×3 (03:05→08:36)
[2023-08-23] MEDS: FAMOTIDINE 20 MG/2 ML VIAL IV (03:05)
[2023-08-23] MEDS: methylPREDNISolone 125 MG/2 ML VIAL IV (03:06)
[2023-08-23] MEDS: diphenhydrAMINE 50 MG/ML VIAL 25 MG IV (03:06)
--- NOTE | 2023-08-23 06:54 | PC.NURSE ---
Patient up from ED via wheelchair. A&O, calm and cooperative.
--- NOTE | 2023-08-23 07:44 | PM.HP.1 ---
History of Present Illness History of Present Illness Date Patient Seen: 08/23/23 Time Patient Seen: 07:44 Chief complaint: CHEST PAIN Narrative: The pt is a 72 yo with a hx of CAD and 3 stents placed in the past, most recently in 2018 and a clean stress test in May. last year who had a sudden onset of RUQ pain that radiated to the back around 2200 last night. He had this problem before but it went away by itself. He reports that the pt is sharp, constant, rated a 8 out of 10, assocaited with nausea and vomiting. There has been no fevers or chills, [facility] Medical History Bilateral adhesive capsulitis of shoulders Encounter for well adult exam with abnormal findings Encounter for well adult exam with abnormal findings DISH (diffuse idiopathic skeletal hyperostosis) Hyperglycemia Tinea Vision disorder Plantar warts Actinic keratosis (~2014) Acne Osteoarthritis (~2009) Heel spur (~2018) Chronic back pain (~1974) Chicken pox Vertigo (~2010) Tinnitus (~1970) Hearing loss (~1970) Hemorrhoid (~1989) GERD (gastroesophageal reflux disease) (~1999) Seasonal allergies (~1950) Hypothyroidism (acquired) Coronary artery disease Surgical History Anesthesia History of knee surgery (~2010) Heel spur History of appendectomy History of tonsillectomy History of heart artery stent Family History Mother Hypertension History of heart disease Dementia Father Hypertension History of heart disease Sister Diabetes mellitus Grandfather History of heart disease Grandmother History of heart disease Social History household members: spouse Smoking Status: Never smoker Meds Home Medications and Allergies Home Medications Medication Instructions Recorded Confirmed Type aspirin 81 mg tablet,delayed 81 mg PO DAILY 06/25/18 08/23/23 History release (Adult Aspirin Regimen) fluticasone propionate 50 1 spray intranasal DAILY 06/25/18 08/23/23 History mcg/actuation nasal spray,suspension (Flonase Allergy Relief) metoprolol succinate 25 mg mg PO BID 02/16/22 07/03/23 History tablet,extended release 24 hr metformin 500 mg tablet 500 mg PO BID #180 tabs 09/11/22 08/23/23 Rx nitroglycerin 0.4 mg sublingual See Rx Instructions .Route 11/13/22 08/23/23 Rx tablet .COMPLEX #25 tabs cetirizine 10 mg capsule (All Day 10 mg PO DAILY 01/02/23 08/23/23 History Allergy (cetirizine)) lisinopril 10 mg tablet 10 mg PO DAILY 01/02/23 08/23/23 History omeprazole 20 mg capsule,delayed 20 mg PO DAILY 01/02/23 08/23/23 History release levothyroxine 50 mcg tablet See Rx Instructions .Route 06/05/23 08/23/23 Rx .COMPLEX #90 tabs atorvastatin 40 mg tablet 40 mg PO BEDTIME #90 tabs 07/03/23 08/23/23 Rx hydrocortisone-acetic acid 1 %-2 % 2 drp otic (ear) TID PRN Ear 07/03/23 08/23/23 Rx ear drops discomfort #10 mL Allergies Allergy/AdvReac Type Severity Reaction Status Date / Time crab Allergy Verified 07/03/23 13:33 hydrocodone Allergy Verified 07/03/23 13:33 Iodinated Contrast Media Allergy Verified 07/03/23 13:33 oxycodone Allergy Verified 07/03/23 13:33 Exam Vital Signs (past 8 hours): - 08/23/23 01:25 08/23/23 01:25 08/23/23 01:25 Temperature 96.7 F L Pulse Rate 81 74 Respiratory Rate 16 18 Blood Pressure 206/91 H 206/91 H Pulse Oximetry 98 99 Oxygen Delivery Method Room Air 08/23/23 01:30 08/23/23 01:30 08/23/23 02:00 Temperature Pulse Rate 77 72 Respiratory Rate 13 19 Blood Pressure 203/93 H Pulse Oximetry 99 99 Oxygen Delivery Method Room Air 08/23/23 02:00 08/23/23 02:10 08/23/23 02:10 Temperature Pulse Rate 68 Respiratory Rate 13 Blood Pressure 190/81 H 192/86 H Pulse Oximetry 98 Oxygen Delivery Method 08/23/23 02:30 08/23/23 02:31 08/23/23 02:31 Temperature Pulse Rate 71 73 Respiratory Rate 16 24 Blood Pressure 206/88 H Pulse Oximetry 100 99 Oxygen Delivery Method 08/23/23 03:58 08/23/23 03:58 08/23/23 04:00 Temperature Pulse Rate 79 73 Respiratory Rate Blood Pressure 193/88 H Pulse Oximetry 95 97 Oxygen Delivery Method 08/23/23 04:00 08/23/23 04:30 08/23/23 04:30 Temperature Pulse Rate 72 Respiratory Rate 18 21 Blood Pressure 185/88 H 198/88 H Pulse Oximetry 97 Oxygen Delivery Method Room Air 08/23/23 05:00 08/23/23 05:00 08/23/23 05:30 Temperature Pulse Rate 73 69 Respiratory Rate Blood Pressure 193/84 H Pulse Oximetry 95 95 Oxygen Delivery Method 08/23/23 05:30 08/23/23 06:00 08/23/23 06:00 Temperature Pulse Rate 79 74 Respiratory Rate 18 18 Blood Pressure 201/90 H 201/93 H Pulse Oximetry 95 Oxygen Delivery Method Oxygen Delivery Method Room Air Const General: cooperative and healthy appearing Resp Auscultation: clear to auscultation bilaterally Cardio Rate: regular rate Rhythm: regular rhythm GI Palpation: tender Neuro General: patient alert, patient awake and patient oriented x3 Objective Labs 08/23/23 01:35 08/23/23 01:35 Labs: Laboratory Results - last 24 hr 08/23/23 08/23/23 01:35 02:10 WBC 7.8 RBC 4.93 Hgb 15.3 Hct 44.5 MCV 90.3 MCH 31.0 MCHC 34.3 RDW 13.6 Plt Count 226 Neut % (Auto) 58.0 Lymph % (Auto) 31.3 [place] % (Auto) 9.4 Eos % (Auto) 0.8 L Baso % (Auto) 0.5 Neut # (Auto) 4500 Lymph # (Auto) 2400 [place] # (Auto) 700 Eos # (Auto) 100 Baso # (Auto) 0 Sodium 138 Potassium 3.7 Chloride 98 Carbon Dioxide 27 BUN 10 Creatinine 0.83 Estimated GFR > 60 BUN/Creatinine Ratio 12.0 Glucose 147 H Calcium 10.0 Magnesium 1.9 Total Bilirubin 0.7 AST 51 ALT 49 Alkaline Phosphatase 60 Total Creatine Kinase 107 Troponin I < 0.012 Total Protein 7.5 Albumin 4.5 Globulin 3.0 Albumin/Globulin Ratio 1.5 Lipase 129 Urine RBC 0-1/hpf Urine WBC None seen Ur Squamous Epith Cells 0-1 /hpf Urine Bacteria None seen Urine Mucus 1+ H Ur Culture Indicated? Cult not indicated Vol Urine Centrifuged 10ml (spun) Assessment & Plan Assessment & Plan narrative: 1, /acute cholecystitis- will place the pt on NPO status, Dr. Mejia of gen surgery consulted and is planning on taking the pt to the OR today for a laporscopic cholecystectomy. Antiemetics and pain meds ordered, IVF, repeat COMP in am, I discussed the pt's case and tx plan with the ER physician.
[2023-08-23] MEDS: LEVOTHYROXINE 50 MCG TABLET PO (08:35)
[2023-08-23] MEDS: METOPROLOL ER 25 MG TABLET 50 MG PO ×2 (08:35→21:51)
[2023-08-23] MEDS: ACETAMINOPHEN 325 MG TABLET 650 MG PO ×3 (08:35→17:52)
[2023-08-23] MEDS: SODIUM CHLORIDE 0.9% 1,000 ML 100 ML IV ×2 (08:36→18:54)
--- NOTE | 2023-08-23 12:23 | CM.DANOTE ---
Patient is a 72 yo male who was admitted on 08/23/23 for Chest pain. pt has [employer] and [employer] for insurance and his PCP is Dr. Nolan Smith. EMR was reviewed. Per MD, pt admitted for likely acute cholecystitis. Per Surgeon, pt to have surgical intervention tomorrow or the next day pending OR availability. SW met bedside with pt and explained role and pt confirms he lives in [place] with his spouse and both are active and independent at baseline. Pt still drives and does not use DME for ambulation and denies any hx of HH or SNF. Pt clearly in some discomfort but currently does not anticipate any d/c needs and confirms his spouse is available for assist as needed at d/c and will provide transport home at discharge. Plan: SW to follow closely for progress after surgery and confirm safe d/c home with spouse assist and any further identified discharge planning needs. [facility] Discharge Planning/Care Management Advanced directive, confirm from FAMILY Start: 08/23/23 06:50 Freq: Q24H Status: Active Protocol: Document 08/23/23 08:53 BT (Rec: 08/23/23 08:59 BT [id number]) Advance Directive, confirm on record Time 08:55 Person contacted pt Copy received No CM Discharge Assessment Start: 08/23/23 12:21 Freq: Status: Active Protocol: Document 08/23/23 12:21 BF (Rec: 08/23/23 12:23 BF [id number]) Discharge Planning Assessment Assigned Behavioral Health Care Coordinator MT Andino DPOA/Assigned Designee Name spouse Christina Contact Information [phone] Advance Directives? Yes Advance Directives on File No History Provided By Patient,Medical Record Has Patient been admitted in last 30 No days? Prior Living Arrangements House Household Members spouse Type of transporation used prior to Drives own vehicle admit Independent with ADL's Yes Is patient alert and oriented? Yes Caregiver for Another No Barriers to Discharge Yes Comment No open surgery times for another 1-2 days Discharge Plan Home Transportation Arrangement spouse will transport Referrals Initiated None needed Additional Comment Pending pt progress post surg Whiteboard Updated in Patient Room with Yes name and ext. # of Behavioral Health Care Coordinator Review Status In Process Please Provide Date Initial DC 08/23/23 Assessment Was Performed Next Review Type Continued Stay Review
--- NOTE | 2023-08-23 13:44 | PM.HP.1 ---
History of Present Illness History of Present Illness Date Patient Seen: 08/23/23 Time Patient Seen: 13:00 Chief complaint: CHEST PAIN Narrative: Per overnight provider, The pt is a 72 yo with a hx of CAD and 3 stents placed in the past, most recently in 2018 and a clean stress test in Nov. last year who had a sudden onset of RUQ pain that radiated to the back around 2200 last night. He had this problem before but it went away by itself. He reports that the pt is sharp, constant, rated a 8 out of 10, assocaited with nausea and vomiting. There has been no fevers or chills, This morning patient's pain is improved. Seen by surgeon whom will perform lap zenobia tomorrow. Started on zosyn for possible, but not definitive cholecystitis until cholecystectomy performed. Patient denies recent chest pain, shortness of breath. He walks about 1.5 miles daily without palpitations or shortness of breath. Compliant with home medications. He reports a similar pain episode about a year ago which resolved spontaneously. [facility] Medical History Bilateral adhesive capsulitis of shoulders Encounter for well adult exam with abnormal findings Encounter for well adult exam with abnormal findings DISH (diffuse idiopathic skeletal hyperostosis) Hyperglycemia Tinea Vision disorder Plantar warts Actinic keratosis (~2014) Acne Osteoarthritis (~2009) Heel spur (~2018) Chronic back pain (~1974) Chicken pox Vertigo (~2010) Tinnitus (~1970) Hearing loss (~1970) Hemorrhoid (~1989) GERD (gastroesophageal reflux disease) (~1999) Seasonal allergies (~1950) Hypothyroidism (acquired) Coronary artery disease Surgical History Anesthesia History of knee surgery (~2010) Heel spur History of appendectomy History of tonsillectomy History of heart artery stent Family History Mother Hypertension History of heart disease Dementia Father Hypertension History of heart disease Sister Diabetes mellitus Grandfather History of heart disease Grandmother History of heart disease Social History household members: spouse Smoking Status: Never smoker Meds Home Medications and Allergies Home Medications Medication Instructions Recorded Confirmed Type aspirin 81 mg tablet,delayed 81 mg PO DAILY 06/25/18 08/23/23 History release (Adult Aspirin Regimen) fluticasone propionate 50 1 spray intranasal DAILY 06/25/18 08/23/23 History mcg/actuation nasal spray,suspension (Flonase Allergy Relief) metoprolol succinate 25 mg mg PO BID 02/16/22 07/03/23 History tablet,extended release 24 hr metformin 500 mg tablet 500 mg PO BID #180 tabs 09/11/22 08/23/23 Rx nitroglycerin 0.4 mg sublingual See Rx Instructions .Route 11/13/22 08/23/23 Rx tablet .COMPLEX #25 tabs cetirizine 10 mg capsule (All Day 10 mg PO DAILY 01/02/23 08/23/23 History Allergy (cetirizine)) lisinopril 10 mg tablet 10 mg PO DAILY 01/02/23 08/23/23 History omeprazole 20 mg capsule,delayed 20 mg PO DAILY 01/02/23 08/23/23 History release levothyroxine 50 mcg tablet See Rx Instructions .Route 06/05/23 08/23/23 Rx .COMPLEX #90 tabs atorvastatin 40 mg tablet 40 mg PO BEDTIME #90 tabs 07/03/23 08/23/23 Rx hydrocortisone-acetic acid 1 %-2 % 2 drp otic (ear) TID PRN Ear 07/03/23 08/23/23 Rx ear drops discomfort #10 mL Allergies Allergy/AdvReac Type Severity Reaction Status Date / Time crab Allergy Verified 07/03/23 13:33 hydrocodone Allergy Verified 07/03/23 13:33 Iodinated Contrast Media Allergy Verified 07/03/23 13:33 oxycodone Allergy Verified 07/03/23 13:33 Review of Systems Review of Systems Narrative: All other systems reviewed with the patient and are negative unless otherwise stated. Exam Vital Signs (past 8 hours): - 08/23/23 06:00 08/23/23 06:00 08/23/23 08:00 Temperature 97.6 F Pulse Rate 74 78 Respiratory Rate 18 16 Blood Pressure 201/93 H 179/82 H Pulse Oximetry 95 96 08/23/23 08:35 Temperature Pulse Rate 76 Respiratory Rate Blood Pressure 173/64 H Pulse Oximetry Oxygen Delivery Method Room Air Narrative Exam Narrative: General:? Patient is well developed and well nourished, in no distress at this time. HEENT:? Normocephalic, atraumatic, extraocular muscles intact, oral pharynx is clear and mucous membranes are moist. Neck: supple and symmetric, trachea is midline, no cervical adenopathy. Negative for JVD Chest:? Normal AP diameter and contour without kyphoscoliosis, no tachypnea, equal chest rise bilaterally. Lungs:? CTA b/l no wheezing rhonchi or rales. Cardio:?RRR no m/r/g. Abdomen: S, RUQ tender, no distension Musculoskeletal:? Muscle strength and tone are equal within normal limits, no deformity. Extremities: No edema or joint effusions. No cyanosis or clubbing. Skin:? Pale,? Warm to touch,dry and intact without rashes, ulcerations or petechiae.? Neuro:? Alert and orientated x3,? sensation to touch intact in all extremities, no gross deficits noted of cranial nerves. Psych:? Patient has a well-kept appearance, appropriate affect, mental status attitude thought context and judgment are appropriate for age. Objective Labs 08/23/23 01:35 08/23/23 01:35 Labs: Laboratory Results - last 24 hr 08/23/23 08/23/23 01:35 02:10 WBC 7.8 RBC 4.93 Hgb 15.3 Hct 44.5 MCV 90.3 MCH 31.0 MCHC 34.3 RDW 13.6 Plt Count 226 Neut % (Auto) 58.0 Lymph % (Auto) 31.3 Day % (Auto) 9.4 Eos % (Auto) 0.8 L Baso % (Auto) 0.5 Neut # (Auto) 4500 Lymph # (Auto) 2400 Day # (Auto) 700 Eos # (Auto) 100 Baso # (Auto) 0 Sodium 138 Potassium 3.7 Chloride 98 Carbon Dioxide 27 BUN 10 Creatinine 0.83 Estimated GFR > 60 BUN/Creatinine Ratio 12.0 Glucose 147 H Calcium 10.0 Magnesium 1.9 Total Bilirubin 0.7 AST 51 ALT 49 Alkaline Phosphatase 60 Total Creatine Kinase 107 Troponin I < 0.012 Total Protein 7.5 Albumin 4.5 Globulin 3.0 Albumin/Globulin Ratio 1.5 Lipase 129 Urine RBC 0-1/hpf Urine WBC None seen Ur Squamous Epith Cells 0-1 /hpf Urine Bacteria None seen Urine Mucus 1+ H Ur Culture Indicated? Cult not indicated Vol Urine Centrifuged 10ml (spun) Assessment & Plan Assessment & Plan narrative: 1. Acute Cholecystitis - - continue zosyn, clinical presentation consistent with choelcystitis but equivocal imaging and no leukocytosis. Can stop antibiotics after surgery. - lap zenobia planned for tomorrow, NPO @ [place], surgeon would like clears today only. - discussed with general surgeon today. 2. hx of CAD - no further evaluation required, patient appears medically optimized prior to surgery. - held asa per surgery recommendations, resume jesús after OR. - continue home statin. 3. HTN, chronic - continue home medications including metoprolol, hold lisinopril until after surgery, 4. Hypothyroidism, chronic - continue home levothyroxine, no indication for TSH testing at this time. Code: Full, surrogate is patient's spouse DVT: SCDs, hold asa and therapy prior to surgery. Dispo: admitted observation, hopeful for home tomorrow after lap zenobia. I have utilized all available immediate resources to obtain, update, or review the patient's current medications.
[2023-08-23] MEDS: PIPERACILLIN/TAZO 4.5 GM in SODIUM CHLORIDE 0.9% 100 ML IV (14:46)
[2023-08-23] MEDS: PIPERACILLIN/TAZO 3.375 GM in SODIUM CHLORIDE 0.9% 100 ML IV (17:52)
[2023-08-23] MEDS: ATORVASTATIN 20 MG TABLET 40 MG PO (21:51)
[2023-08-24] VITALS (16 sets, daily range): BP systolic 120–160; BP diastolic 53–83; PULSE 63–94; RESP 12–18; TEMP 36–37.3; O2SAT 92–97; BMI 30.9
--- NOTE | 2023-08-24 | PATH_ITS ---
[facility] Accession Number: [id number] No. of containers..01 Tissue . 01 Material submitted: . gallbladder - GALLBLADDER . 01 Diagnosis: Gallbladder, Cholecystectomy: Mixed acute and chronic inflammation with focal mucosal erosions and degeneration. Negative for significant atypia and malignancy. FATOU 08/27/2023 1333 Local . 01 Electronically signed: . Venessa Chauhan MD, Pathologist NPI- [id number] . 01 Gross description: . The specimen is received in formalin labeled with the patient's name, , and gallbladder, and consists of a disrupted gallbladder measuring 6.8 x 3.9 x 1.5 cm with no cystic duct margin grossly identified. The edges of the defect are inked blue. No bile is present and no calculi identified in the lumen or the container. The mucosa is green to congested and velvety with no yellow discoloration, polyps, or lesions identified. The hernandez average 0.2 cm thick. Lard Renderer sections to include partial area of defect en face and full thickness sections are submitted in cassette A1. ([id number]) /FATOU 08/25/2023 2130 Local . 01 Pathologist provided ICD-10: K81.1 . 01 CPT . 020343 Specimen Comment: A courtesy copy of this report has been sent to [phone] Performed at: 01 [facility] [address] [place] [address], [place], [place] [id number] MD Marcos Rosas MD Phone: [phone]
[2023-08-24] MEDS: PIPERACILLIN/TAZO 3.375 GM in SODIUM CHLORIDE 0.9% 100 ML IV ×3 (01:43→18:30)
[2023-08-24] MEDS: ACETAMINOPHEN 325 MG TABLET 650 MG PO (01:44)
[2023-08-24] MEDS: SODIUM CHLORIDE 0.9% 1,000 ML 100 ML IV ×2 (04:28→14:21)
[2023-08-24 05:26] LABS: Add Manual Diff / Slide Review NO; Basophils Absolute Auto 100 /uL (0-100); Basophils Percent Auto 0.4 % (0-2); Eosinophils Absolute Auto 0 /uL (0-450); Hematocrit 41.3 % (41-53); Hemoglobin 14.1 g/dL (13.5-17.5); Lymphocytes Absolute Auto 1300 /uL (1100-4500); Lymphocytes Percent Auto 5.8 % (25-40); Mean Corpuscular Hemoglobin 30.7 PG (26-34); Mean Corpuscular Volume 90.2 fL (80-100); Monocytes Absolute Auto 1800 /uL (0-900); Neutrophils Absolute Auto 19000 /uL (1500-7000); Neutrophils Percent Auto 85.8 % (50-75); Platelet Count 214 X10^3/uL (150-400); Red Blood Cell Count 4.58 X10^6/uL (4.5-5.9); Red Cell Distribution Width 13.5 % (11.6-14.8); White Blood Cell Count 22.1 X10^3/uL (4.5-11.0)
[2023-08-24 05:39] LABS: Alanine Aminotransferase 39 IU/L (<50); Albumin 3.8 g/dL (3.5-5.0); Albumin Globulin Ratio 1.5 (1.0-2.8); Alkaline Phosphatase 48 U/L (38-126); Aspartate Aminotransferase 39 IU/L (17-59); BUN Creatinine Ratio 20.7 (6-22); Bilirubin Total 0.9 mg/dL (0.2-1.3); Blood Urea Nitrogen 12 mg/dL (9-20); Carbon Dioxide 25 mmol/L (22-32); Chloride 104 mmol/L (98-107); Estimated Glomerular Filt Rate > 60 mL/min (>60); Globulin 2.6 g/dL (1.7-4.1); Glucose 128 mg/dL (80-110); HEMOLYSIS < 15 (0-50); Potassium 3.8 mmol/L (3.4-5.1); Sodium 138 mmol/L (137-145); Total Protein 6.4 g/dL (6.3-8.2)
[2023-08-24] MEDS: HYDROMORPHONE 0.5 MG INJ IV (08:49)
[2023-08-24] MEDS: METOPROLOL ER 25 MG TABLET 50 MG PO ×2 (08:49→20:17)
[2023-08-24] MEDS: PANTOPRAZOLE 40 MG VIAL IV (08:50)
--- NOTE | 2023-08-24 13:04 | P.PN_ITS ---
Subjective Subjective Interval history: Somewhat worsened today, feels a bit more ill. WBC increased to 22K. Plan for lap zenobia this afternoon with surgery. Exam Vital Signs (past 8 hours): - 08/24/23 08:49 08/24/23 09:54 Temperature 98.9 F Pulse Rate 77 94 H Respiratory Rate 16 Blood Pressure 140/68 136/66 Pulse Oximetry 95 Oxygen Flow Rate 0 Oxygen Delivery Method Room Air Oxygen Flow Rate 0 Narrative Exam Narrative: General:? Patient is well developed and well nourished, in no distress at this time. HEENT:? Normocephalic, atraumatic, extraocular muscles intact, oral pharynx is clear and mucous membranes are moist. Neck: supple and symmetric, trachea is midline, no cervical adenopathy. Negative for JVD Chest:? Normal AP diameter and contour without kyphoscoliosis, no tachypnea, equal chest rise bilaterally. Lungs:? CTA b/l no wheezing rhonchi or rales. Cardio:?RRR no m/r/g. Abdomen: S, RUQ tender, no distension Musculoskeletal:? Muscle strength and tone are equal within normal limits, no deformity. Extremities: No edema or joint effusions. No cyanosis or clubbing. Skin:? Pale,? Warm to touch,dry and intact without rashes, ulcerations or petechiae.? Neuro:? Alert and orientated x3,? sensation to touch intact in all extremities, no gross deficits noted of cranial nerves. Psych:? Patient has a well-kept appearance, appropriate affect, mental status attitude thought context and judgment are appropriate for age. Objective Labs 08/24/23 05:08 08/24/23 05:08 Labs: Laboratory Results - last 24 hr 08/24/23 05:08 WBC 22.1 H D RBC 4.58 Hgb 14.1 Hct 41.3 MCV 90.2 MCH 30.7 MCHC 34.0 RDW 13.5 Plt Count 214 Neut % (Auto) 85.8 H D Lymph % (Auto) 5.8 L D [place] % (Auto) 8.0 Eos % (Auto) 0.0 L Baso % (Auto) 0.4 Neut # (Auto) 40148 H Lymph # (Auto) 1300 [place] # (Auto) 1800 H Eos # (Auto) 0 Baso # (Auto) 100 Sodium 138 Potassium 3.8 Chloride 104 Carbon Dioxide 25 BUN 12 Creatinine 0.58 L Estimated GFR > 60 BUN/Creatinine Ratio 20.7 Glucose 128 H Calcium 9.0 Total Bilirubin 0.9 AST 39 ALT 39 Alkaline Phosphatase 48 Total Protein 6.4 Albumin 3.8 Globulin 2.6 Albumin/Globulin Ratio 1.5 [facility] Medical History Bilateral adhesive capsulitis of shoulders Encounter for well adult exam with abnormal findings Encounter for well adult exam with abnormal findings DISH (diffuse idiopathic skeletal hyperostosis) Hyperglycemia Tinea Vision disorder Plantar warts Actinic keratosis (~2014) Acne Osteoarthritis (~2009) Heel spur (~2018) Chronic back pain (~1974) Chicken pox Vertigo (~2010) Tinnitus (~1970) Hearing loss (~1970) Hemorrhoid (~1989) GERD (gastroesophageal reflux disease) (~1999) Seasonal allergies (~1950) Hypothyroidism (acquired) Coronary artery disease Surgical History Anesthesia History of knee surgery (~2010) Heel spur History of appendectomy History of tonsillectomy History of heart artery stent Family History Mother Hypertension History of heart disease Dementia Father Hypertension History of heart disease Sister Diabetes mellitus Grandfather History of heart disease Grandmother History of heart disease Social History household members: spouse Smoking Status: Never smoker Assessment & Plan Assessment & Plan narrative: 1. Acute Cholecystitis - - continue zosyn, clinical presentation consistent with choelcystitis and now with leukocytosis and worsening RUQ pain today. Continue antibiotics, may need some after surgery depending on operative findings. - lap zenobia planned for this afternoon. - discussed with general surgeon. 2. hx of CAD - no further evaluation required, patient appears medically optimized prior to surgery. - held asa per surgery recommendations, resume jesús after OR. - continue home statin. 3. HTN, chronic - continue home medications including metoprolol, hold lisinopril until after surgery, 4. Hypothyroidism, chronic - continue home levothyroxine, no indication for TSH testing at this time. Code: Full, surrogate is patient's spouse DVT: SCDs, hold asa and therapy prior to surgery. Dispo: admitted observation, hopeful for home tomorrow after lap zenobia depending on operative findings and clinical course I have utilized all available immediate resources to obtain, update, or review the patient's current medications.
--- NOTE | 2023-08-24 15:53 | PM.CN ---
History of Present Illness Consult details Date Patient Seen: 08/24/23 Chief complaint: CHEST PAIN Narrative: 72-year-old man admitted to [facility] with acute cholecystitis. He presented with epigastric pain nausea and bloating. At admission afebrile without leukocytosis and normal liver function tests. Abdominal ultrasound and CT abdomen pelvis demonstrate multiple gallstones small amount of pericholecystic fluid no wall thickening. Meds Home Medications and Allergies Home Medications Medication Instructions Recorded Confirmed Type aspirin 81 mg tablet,delayed 81 mg PO DAILY 06/25/18 08/23/23 History release (Adult Aspirin Regimen) fluticasone propionate 50 1 spray intranasal DAILY 06/25/18 08/23/23 History mcg/actuation nasal spray,suspension (Flonase Allergy Relief) metoprolol succinate 25 mg 25 mg PO BID 02/16/22 08/24/23 History tablet,extended release 24 hr metformin 500 mg tablet 500 mg PO BID #180 tabs 09/11/22 08/23/23 Rx nitroglycerin 0.4 mg sublingual See Rx Instructions .Route 11/13/22 08/23/23 Rx tablet .COMPLEX #25 tabs cetirizine 10 mg capsule (All Day 10 mg PO DAILY 01/02/23 08/23/23 History Allergy (cetirizine)) lisinopril 10 mg tablet 10 mg PO DAILY 01/02/23 08/23/23 History omeprazole 20 mg capsule,delayed 20 mg PO DAILY 01/02/23 08/23/23 History release levothyroxine 50 mcg tablet See Rx Instructions .Route 06/05/23 08/23/23 Rx .COMPLEX #90 tabs atorvastatin 40 mg tablet 40 mg PO BEDTIME #90 tabs 07/03/23 08/23/23 Rx hydrocortisone-acetic acid 1 %-2 % 2 drp otic (ear) TID PRN Ear 07/03/23 08/23/23 Rx ear drops discomfort #10 mL Allergies Allergy/AdvReac Type Severity Reaction Status Date / Time crab Allergy Verified 07/03/23 13:33 hydrocodone Allergy Verified 07/03/23 13:33 Iodinated Contrast Media Allergy Verified 07/03/23 13:33 oxycodone Allergy Verified 07/03/23 13:33 Exam Vital Signs (past 8 hours): - 08/24/23 08:49 08/24/23 09:54 08/24/23 15:47 Temperature 98.9 F 99.1 F Pulse Rate 77 94 H 94 H Respiratory Rate 16 16 Blood Pressure 140/68 136/66 160/77 H Pulse Oximetry 95 95 Oxygen Delivery Method Room Air Oxygen Flow Rate 0 Oxygen Delivery Method Room Air Oxygen Flow Rate 0 Narrative Exam Narrative: GENERAL: A well nourished, well developed adult man, resting comfortably, in no acute distress. HEENT: Normocephalic, atraumatic. No scleral icterus CHEST: Rising symmetrically. No audible wheezes CARDIOVASCULAR: Warm and well perfused. Regular rate ABDOMEN: Positive Bartholomew sign EXTREMITIES: Normal tone and without edema. NEUROLOGIC: Moving all extremities spontaneously. No gross motor deficits. Objective Labs 08/24/23 05:08 08/24/23 05:08 Labs: Laboratory Results - last 24 hr 08/24/23 05:08 WBC 22.1 H D RBC 4.58 Hgb 14.1 Hct 41.3 MCV 90.2 MCH 30.7 MCHC 34.0 RDW 13.5 Plt Count 214 Neut % (Auto) 85.8 H D Lymph % (Auto) 5.8 L D [place] % (Auto) 8.0 Eos % (Auto) 0.0 L Baso % (Auto) 0.4 Neut # (Auto) 07840 H Lymph # (Auto) 1300 [place] # (Auto) 1800 H Eos # (Auto) 0 Baso # (Auto) 100 Sodium 138 Potassium 3.8 Chloride 104 Carbon Dioxide 25 BUN 12 Creatinine 0.58 L Estimated GFR > 60 BUN/Creatinine Ratio 20.7 Glucose 128 H Calcium 9.0 Total Bilirubin 0.9 AST 39 ALT 39 Alkaline Phosphatase 48 Total Protein 6.4 Albumin 3.8 Globulin 2.6 Albumin/Globulin Ratio 1.5 [facility] Medical History Bilateral adhesive capsulitis of shoulders Encounter for well adult exam with abnormal findings Encounter for well adult exam with abnormal findings DISH (diffuse idiopathic skeletal hyperostosis) Hyperglycemia Tinea Vision disorder Plantar warts Actinic keratosis (~2014) Acne Osteoarthritis (~2009) Heel spur (~2018) Chronic back pain (~1974) Chicken pox Vertigo (~2010) Tinnitus (~1970) Hearing loss (~1970) Hemorrhoid (~1989) GERD (gastroesophageal reflux disease) (~1999) Seasonal allergies (~195) Hypothyroidism (acquired) Coronary artery disease Surgical History Anesthesia History of knee surgery (~2010) Heel spur History of appendectomy History of tonsillectomy History of heart artery stent Family History Mother Hypertension History of heart disease Dementia Father Hypertension History of heart disease Sister Diabetes mellitus Grandfather History of heart disease Grandmother History of heart disease Social History household members: spouse Tobacco & Substance Use Smoking Status: Never smoker Assessment & Plan Assessment and plan (1) Acute cholecystitis: Status: Acute Assessment & Plan narrative: Mr. Galvan is a 72 year old man PMH CAD with good functional status who has symptoms and radiographic findings consistent with acute cholecystitis. Laboratory studies and imaging personally reviewed.. I recommended we proceed with laparoscopic cholecystectomy. I explained the major risks of cholecystectomy including bleeding, infection and rare but serious events such as bile leak, biliary injury, bowel injury, thromboembolism, heart attack, stroke and . I marce them a diagram to illustrate the relevant pathology and the relevant anatomy involved in the operation. Following discussion their preference is to proceed.
[2023-08-24] MEDS: ACETAMINOPHEN IV 1,000 MG/100 ML VIAL 400 MG IV (16:15)
[2023-08-24] MEDS: CEFAZOLIN VIAL 2 GM in SODIUM CHLORIDE 0.9% 100 ML IV (16:23)
--- NOTE | 2023-08-24 16:40 | SUR.OPER ---
Supine on padded OR bed, head on pillow, safety belt at thigh, left arm padded and tucked at side. Right arm secured on padded arm board <90 degrees abduction. Legs uncrossed. Padded footboard in place. Tape over blanket to secure lower legs.
[2023-08-24] MEDS: BUPIVACAINE 0.25% (PF) VIAL 30 ML INJ (16:56)
[2023-08-24] MEDS: HYDROMORPHONE 1 MG INJ IV (17:45)
--- NOTE | 2023-08-24 18:51 | P.OP_ITS ---
Operative Date/Time/Diagnoses Date of procedure: 08/24/23 Time of procedure: 18:51 Pre-op diagnosis: Acute cholecystitis Post-op diagnosis: other (Gangrenous cholecystitis) Procedure & Clinicians Procedure: Subtotal cholecystectomy. Modifier 22 to be applied to this case. The gangrenous nature of this gallbladder required significantly more time and attention then would be typical Same procedure as scheduled: Yes Indications: 72-year-old man with symptoms and radiographic findings consistent with acute cholecystitis. Surgeon: Clif Hammonds Click Yes if Unassisted: Yes Anesthesia Type: General Operative Notes Findings: Necrotic gallbladder. Inability to visualize the hepatocystic triangle Specimen(s): other (Partial Gallbladder) Estimated Blood Loss (mL): 70 Procedure in detail: Patient was brought to the operating room placed supine on the table. He received lower extremity compression devices and 2 g of Ancef prior to skin incision. General anesthesia was induced he was intubated with an endotracheal tube. He was then prepped and draped in sterile position time-out was perform ed. An infraumbilical incision was made the abdomen was entered atraumatically and a 12 mm balloon trocar was placed into the abdomen pneumoperitoneum was established. There was no evidence of injury upon entry an additional 5 mm working ports were placed in the right upper quadrant and an 11 mm port high in the epigastric region. A general inspection of the abdomen was made and it was significant for purulent material above the dome of the liver. The gallbladder was inspected and it was frankly necrotic please refer to the intraoperative photographs. Despite multiple attempts and positioning the placing the patient in steep reverse Trendelenburg the hepatocystic triangle could not be visualized due to the severe inflammation. I considered converting to an open operation however I do not think this would afford us better visualization of the critical structures. Therefore we proceeded with a subtotal cholecystectomy. Approximately 80% of the gallbladder was removed including all necrotic portions. A portion of the posterior wall was left in place as well as stump. Two Nabeel drains were left the 1st in the right pericolic gutter and ending above the dome of the liver. The 2nd placed into the gallbladder fossa. The abdomen was irrigated with 4 L of saline and returned grossly clear. The umbilical fascia was closed with a Vicryl suture the drains were secured and skin closed with Monocryl. He tolerated the operation well was extubated and was transferred to recovery in stable condition. Complications: none Post-operative Condition: stable Disposition: Acute Care
[2023-08-24] MEDS: ATORVASTATIN 20 MG TABLET 40 MG PO (20:17)
[2023-08-25] MEDS: ACETAMINOPHEN 325 MG TABLET 650 MG PO ×4 (02:11→17:51)
[2023-08-25] MEDS: PIPERACILLIN/TAZO 3.375 GM in SODIUM CHLORIDE 0.9% 100 ML IV ×3 (02:11→17:52)
[2023-08-25] MEDS: LEVOTHYROXINE 50 MCG TABLET PO (05:49)
[2023-08-25] MEDS: PANTOPRAZOLE DR 40 MG TABLET PO (05:49)
[2023-08-25 05:54] VITALS: BP 148/71; PULSE 61; RESP 18; TEMP 36.3; O2SAT 94
[2023-08-25 09:13] VITALS: BP 148/62; PULSE 62
[2023-08-25] MEDS: METOPROLOL ER 25 MG TABLET 50 MG PO ×2 (09:13→20:44)
[2023-08-25 09:50] LABS: Add Manual Diff / Slide Review NO; Basophils Absolute Auto 100 /uL (0-100); Basophils Percent Auto 0.3 % (0-2); Eosinophils Absolute Auto 0 /uL (0-450); Hemoglobin 13.2 g/dL (13.5-17.5); Lymphocytes Absolute Auto 1200 /uL (1100-4500); Lymphocytes Percent Auto 8.3 % (25-40); Mean Corpuscular HGB Conc 33.9 % (30-36); Mean Corpuscular Hemoglobin 30.7 PG (26-34); Mean Corpuscular Volume 90.6 fL (80-100); Monocytes Absolute Auto 1000 /uL (0-900); Monocytes Percent Auto 6.4 % (3-14); Neutrophils Absolute Auto 12800 /uL (1500-7000); Platelet Count 190 X10^3/uL (150-400); Red Blood Cell Count 4.31 X10^6/uL (4.5-5.9); Red Cell Distribution Width 13.7 % (11.6-14.8)
[2023-08-25 10:00] LABS: Alanine Aminotransferase 56 IU/L (<50); Albumin 3.1 g/dL (3.5-5.0); Albumin Globulin Ratio 1.2 (1.0-2.8); Alkaline Phosphatase 49 U/L (38-126); Aspartate Aminotransferase 65 IU/L (17-59); BUN Creatinine Ratio 22.6 (6-22); Bilirubin Total 0.8 mg/dL (0.2-1.3); Blood Urea Nitrogen 12 mg/dL (9-20); Calcium 8.5 mg/dL (8.4-10.2); Carbon Dioxide 30 mmol/L (22-32); Chloride 102 mmol/L (98-107); Estimated Glomerular Filt Rate > 60 mL/min (>60); Globulin 2.6 g/dL (1.7-4.1); Glucose 156 mg/dL (80-110); HEMOLYSIS 26 (0-50); Potassium 4.4 mmol/L (3.4-5.1); Sodium 137 mmol/L (137-145); Total Protein 5.7 g/dL (6.3-8.2)
[2023-08-25 10:24] VITALS: BP 140/60
--- NOTE | 2023-08-25 10:28 | P.PN_ITS ---
Subjective Subjective Date Patient Seen: 08/25/23 Time Patient Seen: 10:28 Interval history: Evaristo is feeling better today. Minimal appetite. No nausea or vomiting with clears. White blood cell are down to 15,000 today. Exam Vital Signs (past 8 hours): - 08/25/23 05:54 08/25/23 09:13 08/25/23 10:24 Temperature 97.3 F L Pulse Rate 61 62 Respiratory Rate 18 Blood Pressure 148/71 H 148/62 H 140/60 Pulse Oximetry 94 Oxygen Flow Rate 0 Oxygen Delivery Method Nasal Cannula Oxygen Flow Rate 0 Const General: comfortable Other: Both drains contains scant serosanguineous output Objective Labs 08/25/23 09:35 08/25/23 09:35 Labs: Laboratory Results - last 24 hr 08/25/23 09:35 WBC 15.0 H RBC 4.31 L Hgb 13.2 L Hct 39.0 L MCV 90.6 MCH 30.7 MCHC 33.9 RDW 13.7 Plt Count 190 Neut % (Auto) 85.0 H Lymph % (Auto) 8.3 L [place] % (Auto) 6.4 Eos % (Auto) 0.0 L Baso % (Auto) 0.3 Neut # (Auto) 77473 H Lymph # (Auto) 1200 [place] # (Auto) 1000 H Eos # (Auto) 0 Baso # (Auto) 100 Sodium 137 Potassium 4.4 Chloride 102 Carbon Dioxide 30 BUN 12 Creatinine 0.53 L Estimated GFR > 60 BUN/Creatinine Ratio 22.6 H Glucose 156 H Calcium 8.5 Total Bilirubin 0.8 AST 65 H ALT 56 H Alkaline Phosphatase 49 Total Protein 5.7 L Albumin 3.1 L Globulin 2.6 Albumin/Globulin Ratio 1.2 [facility] Medical History Bilateral adhesive capsulitis of shoulders Encounter for well adult exam with abnormal findings Encounter for well adult exam with abnormal findings DISH (diffuse idiopathic skeletal hyperostosis) Hyperglycemia Tinea Vision disorder Plantar warts Actinic keratosis (~2014) Acne Osteoarthritis (~2009) Heel spur (~2018) Chronic back pain (~1974) Chicken pox Vertigo (~2010) Tinnitus (~1970) Hearing loss (~1970) Hemorrhoid (~1989) GERD (gastroesophageal reflux disease) (~1999) Seasonal allergies (~1951) Hypothyroidism (acquired) Coronary artery disease Surgical History Anesthesia History of knee surgery (~2010) Heel spur History of appendectomy History of tonsillectomy History of heart artery stent Family History Mother Hypertension History of heart disease Dementia Father Hypertension History of heart disease Sister Diabetes mellitus Grandfather History of heart disease Grandmother History of heart disease Social History household members: spouse Smoking Status: Never smoker Assessment & Plan Assessment and plan (1) Acute cholecystitis: Status: Acute Plan Edward is doing well but still with minimal appetite. Continue clear liquid diet until appetite is back. Continue IV antibiotics until white count is close to normal. Continue drains for at least another day.
--- NOTE | 2023-08-25 11:02 | PM.PN.1 ---
Subjective Subjective Interval history: He is doing well after surgery. He still has some right upper quadrant and right shoulder pain. No nausea. He denies any chest pain, or shortness of breath. Exam Vital Signs (past 8 hours): - 08/25/23 05:54 08/25/23 09:13 08/25/23 10:24 Temperature 97.3 F L Pulse Rate 61 62 Respiratory Rate 18 Blood Pressure 148/71 H 148/62 H 140/60 Pulse Oximetry 94 Oxygen Flow Rate 0 Oxygen Delivery Method Nasal Cannula Oxygen Flow Rate 0 Narrative Exam Narrative: NAD, no distress. Lungs clear, normal rate and effort. Heart is regular, no murmur. Abdomen is soft and there is some right upper quadrant tenderness without guarding or rebound. Two drains in place with serous output. Extremities are free of edema. Objective Labs 08/25/23 09:35 08/25/23 09:35 Labs: Laboratory Results - last 24 hr 08/25/23 09:35 WBC 15.0 H RBC 4.31 L Hgb 13.2 L Hct 39.0 L MCV 90.6 MCH 30.7 MCHC 33.9 RDW 13.7 Plt Count 190 Neut % (Auto) 85.0 H Lymph % (Auto) 8.3 L [place] % (Auto) 6.4 Eos % (Auto) 0.0 L Baso % (Auto) 0.3 Neut # (Auto) 35348 H Lymph # (Auto) 1200 [place] # (Auto) 1000 H Eos # (Auto) 0 Baso # (Auto) 100 Sodium 137 Potassium 4.4 Chloride 102 Carbon Dioxide 30 BUN 12 Creatinine 0.53 L Estimated GFR > 60 BUN/Creatinine Ratio 22.6 H Glucose 156 H Calcium 8.5 Total Bilirubin 0.8 AST 65 H ALT 56 H Alkaline Phosphatase 49 Total Protein 5.7 L Albumin 3.1 L Globulin 2.6 Albumin/Globulin Ratio 1.2 [facility] Medical History Bilateral adhesive capsulitis of shoulders Encounter for well adult exam with abnormal findings Encounter for well adult exam with abnormal findings DISH (diffuse idiopathic skeletal hyperostosis) Hyperglycemia Tinea Vision disorder Plantar warts Actinic keratosis (~2014) Acne Osteoarthritis (~2009) Heel spur (~2018) Chronic back pain (~1974) Chicken pox Vertigo (~2010) Tinnitus (~1970) Hearing loss (~1970) Hemorrhoid (~1989) GERD (gastroesophageal reflux disease) (~1999) Seasonal allergies (~1950) Hypothyroidism (acquired) Coronary artery disease Surgical History Anesthesia History of knee surgery (~2010) Heel spur History of appendectomy History of tonsillectomy History of heart artery stent Family History Mother Hypertension History of heart disease Dementia Father Hypertension History of heart disease Sister Diabetes mellitus Grandfather History of heart disease Grandmother History of heart disease Social History household members: spouse Smoking Status: Never smoker Assessment & Plan Assessment & Plan narrative: 1. Acute Cholecystitis, present on admission and active- -status post complicated laparoscopic cholecystectomy. Two drains remain in place. We will observe him for another night. 2. CAD, present on admission and stable. - no further evaluation required, patient appears medically optimized prior to surgery. - held asa per surgery recommendations, resume jesús after OR. - continue home statin. - no chest pain or dyspnea. 3. HTN, present on admission and stable. - continue home medications including metoprolol, hold lisinopril until after surgery, 4. Hypothyroidism, present on admission and stable. - continue home levothyroxine, no indication for TSH testing at this time. Code: Full, surrogate is patient's spouse DVT: SCDs, hold asa and therapy prior to surgery. Dispo: He will require a 2nd midnight of hospital level care to continue to observe his surgical drains, pain control and progression. It is possible he will be stable for discharge on August 26.
[2023-08-25] MEDS: SODIUM CHLORIDE 0.9% 1,000 ML 100 ML IV ×2 (13:50→20:51)
--- NOTE | 2023-08-25 17:25 | PC.NURSE ---
Assumed care of pt at 1500, A&Ox4, c/o 2/10 pain to R shldr, does not need pain meds at this time. CLAUDIO drains emptied and recorded in patient chart. Bowel sounds present in all 4 quadrants, pt states he started passing gas this afternoon. Incentive spirometer teaching completed at this time. Pt left resting comfortably in bed, with spouse at bedside. Bed in low position, call light within reach.
[2023-08-25 17:42] VITALS: BP 141/60; PULSE 64; RESP 16; TEMP 36.3; O2SAT 97
[2023-08-25 19:39] VITALS: BP 147/54; PULSE 63; RESP 18; TEMP 36.1; O2SAT 98
[2023-08-25 20:44] VITALS: BP 154/58; PULSE 63
[2023-08-25] MEDS: ATORVASTATIN 20 MG TABLET 40 MG PO (21:19)
[2023-08-26] MEDS: ACETAMINOPHEN 325 MG TABLET 650 MG PO ×4 (01:18→18:33)
[2023-08-26] MEDS: PIPERACILLIN/TAZO 3.375 GM in SODIUM CHLORIDE 0.9% 100 ML IV (01:19)
[2023-08-26 03:00] VITALS: BP 154/68; PULSE 61; RESP 17; TEMP 36.6; O2SAT 95
[2023-08-26] MEDS: PANTOPRAZOLE DR 40 MG TABLET PO (05:19)
[2023-08-26] MEDS: LEVOTHYROXINE 50 MCG TABLET PO (05:19)
[2023-08-26] MEDS: SODIUM CHLORIDE 0.9% 1,000 ML 100 ML IV (05:27)
[2023-08-26 07:36] VITALS: BP 154/75; PULSE 64; RESP 20; TEMP 36.4; O2SAT 94
--- NOTE | 2023-08-26 08:35 | P.PN_ITS ---
Subjective Subjective Interval history: He is feeling better today. Less right shoulder pain. Less right upper quadrant abdominal pain. He is still having a fair amount of drainage from his surgical drain. No nausea. He is constipated. Exam Vital Signs (past 8 hours): - 08/26/23 03:00 08/26/23 07:36 Temperature 97.8 F 97.5 F L Pulse Rate 61 64 Respiratory Rate 17 20 Blood Pressure 154/68 H 154/75 H Pulse Oximetry 95 94 Oxygen Flow Rate 0 0 Oxygen Delivery Method Nasal Cannula Oxygen Flow Rate 0 Narrative Exam Narrative: NAD, fluent speech Lungs clear with normal rate Heart regular Abdomen: Less tender in the right upper quadrant. No leg edema. Objective Labs 08/25/23 09:35 08/25/23 09:35 Labs: Laboratory Results - last 24 hr 08/25/23 09:35 WBC 15.0 H RBC 4.31 L Hgb 13.2 L Hct 39.0 L MCV 90.6 MCH 30.7 MCHC 33.9 RDW 13.7 Plt Count 190 Neut % (Auto) 85.0 H Lymph % (Auto) 8.3 L [place] % (Auto) 6.4 Eos % (Auto) 0.0 L Baso % (Auto) 0.3 Neut # (Auto) 58073 H Lymph # (Auto) 1200 [place] # (Auto) 1000 H Eos # (Auto) 0 Baso # (Auto) 100 Sodium 137 Potassium 4.4 Chloride 102 Carbon Dioxide 30 BUN 12 Creatinine 0.53 L Estimated GFR > 60 BUN/Creatinine Ratio 22.6 H Glucose 156 H Calcium 8.5 Total Bilirubin 0.8 AST 65 H ALT 56 H Alkaline Phosphatase 49 Total Protein 5.7 L Albumin 3.1 L Globulin 2.6 Albumin/Globulin Ratio 1.2 [facility] Medical History Bilateral adhesive capsulitis of shoulders Encounter for well adult exam with abnormal findings Encounter for well adult exam with abnormal findings DISH (diffuse idiopathic skeletal hyperostosis) Hyperglycemia Tinea Vision disorder Plantar warts Actinic keratosis (~2014) Acne Osteoarthritis (~2009) Heel spur (~2018) Chronic back pain (~1974) Chicken pox Vertigo (~2010) Tinnitus (~1970) Hearing loss (~1970) Hemorrhoid (~1989) GERD (gastroesophageal reflux disease) (~1999) Seasonal allergies (~1950) Hypothyroidism (acquired) Coronary artery disease Surgical History Anesthesia History of knee surgery (~2010) Heel spur History of appendectomy History of tonsillectomy History of heart artery stent Family History Mother Hypertension History of heart disease Dementia Father Hypertension History of heart disease Sister Diabetes mellitus Grandfather History of heart disease Grandmother History of heart disease Social History household members: spouse Smoking Status: Never smoker Assessment & Plan Assessment & Plan narrative: 1. Acute Cholecystitis, present on admission and improving -status post complicated laparoscopic cholecystectomy. Two drains remain in place. We will observe him for another night. 2. CAD, present on admission and stable. - no further evaluation required, patient appears medically optimized prior to surgery. - resume aspirin, metoprolol dose corrected to 25 b.i.d.. Lisinopril 10 mg daily. - continue home statin. - no chest pain or dyspnea. 3. HTN, present on admission and stable. - resume medications and doses noted above. 4. Hypothyroidism, present on admission and stable. - continue home levothyroxine, no indication for TSH testing at this time. Plan: -discuss with surgery regarding diet advance and other plans. Code: Full, surrogate is patient's spouse DVT: SCDs, hold asa and therapy prior to surgery.
[2023-08-26 08:54] VITALS: BP 154/75; PULSE 64
[2023-08-26] MEDS: METOPROLOL ER 25 MG TABLET PO ×2 (08:54→20:05)
[2023-08-26 08:55] VITALS: BP 154/75; PULSE 64
[2023-08-26] MEDS: lisinopriL 10 MG TABLET PO (08:55)
[2023-08-26 09:38] LABS: Add Manual Diff / Slide Review NO; Basophils Absolute Auto 0 /uL (0-100); Basophils Percent Auto 0.4 % (0-2); Eosinophils Absolute Auto 0 /uL (0-450); Eosinophils Percent Auto 0.1 % (2-4); Hematocrit 40.8 % (41-53); Lymphocytes Absolute Auto 1700 /uL (1100-4500); Mean Corpuscular HGB Conc 34.3 % (30-36); Mean Corpuscular Hemoglobin 30.9 PG (26-34); Mean Corpuscular Volume 90.2 fL (80-100); Monocytes Absolute Auto 600 /uL (0-900); Monocytes Percent Auto 5.5 % (3-14); Neutrophils Absolute Auto 9000 /uL (1500-7000); Platelet Count 226 X10^3/uL (150-400); Red Blood Cell Count 4.52 X10^6/uL (4.5-5.9); Red Cell Distribution Width 13.8 % (11.6-14.8); White Blood Cell Count 11.3 X10^3/uL (4.5-11.0)
[2023-08-26 09:54] LABS: Alanine Aminotransferase 61 IU/L (<50); Albumin 3.5 g/dL (3.5-5.0); Albumin Globulin Ratio 1.2 (1.0-2.8); Alkaline Phosphatase 62 U/L (38-126); Aspartate Aminotransferase 65 IU/L (17-59); BUN Creatinine Ratio 18.9 (6-22); Bilirubin Total 1.2 mg/dL (0.2-1.3); Blood Urea Nitrogen 10 mg/dL (9-20); Calcium 8.5 mg/dL (8.4-10.2); Carbon Dioxide 23 mmol/L (22-32); Chloride 106 mmol/L (98-107); Estimated Glomerular Filt Rate > 60 mL/min (>60); Globulin 2.9 g/dL (1.7-4.1); Glucose 202 mg/dL (80-110); HEMOLYSIS < 15 (0-50); Potassium 3.4 mmol/L (3.4-5.1); Sodium 136 mmol/L (137-145); Total Protein 6.4 g/dL (6.3-8.2)
--- NOTE | 2023-08-26 10:41 | P.PN_ITS ---
Subjective Subjective Date Patient Seen: 08/26/23 Time Patient Seen: 10:42 Interval history: White count normal Passing flatus Tolerating clear liquids but minimal appetite Output from both drains is decreasing Still has some right-sided abdominal tenderness Exam Vital Signs (past 8 hours): - 08/26/23 03:00 08/26/23 07:36 08/26/23 08:45 Temperature 97.8 F 97.5 F L Pulse Rate 61 64 Respiratory Rate 17 20 Blood Pressure 154/68 H 154/75 H Pulse Oximetry 95 94 Oxygen Delivery Method Room Air Oxygen Flow Rate 0 0 08/26/23 08:54 08/26/23 08:55 Temperature Pulse Rate 64 64 Respiratory Rate Blood Pressure 154/75 H 154/75 H Pulse Oximetry Oxygen Delivery Method Oxygen Flow Rate Oxygen Delivery Method Room Air Oxygen Flow Rate 0 Narrative Exam Narrative: Abdomen soft Drain 1 is serosanguineous, drain 2 is serous Objective Labs 08/26/23 09:30 08/26/23 09:30 Labs: Laboratory Results - last 24 hr 08/26/23 09:30 WBC 11.3 H RBC 4.52 Hgb 14.0 Hct 40.8 L MCV 90.2 MCH 30.9 MCHC 34.3 RDW 13.8 Plt Count 226 Neut % (Auto) 79.0 H Lymph % (Auto) 15.0 L [place] % (Auto) 5.5 Eos % (Auto) 0.1 L Baso % (Auto) 0.4 Neut # (Auto) 9000 H Lymph # (Auto) 1700 [place] # (Auto) 600 Eos # (Auto) 0 Baso # (Auto) 0 Sodium 136 L Potassium 3.4 Chloride 106 Carbon Dioxide 23 BUN 10 Creatinine 0.53 L Estimated GFR > 60 BUN/Creatinine Ratio 18.9 Glucose 202 H Calcium 8.5 Total Bilirubin 1.2 AST 65 H ALT 61 H Alkaline Phosphatase 62 Total Protein 6.4 Albumin 3.5 Globulin 2.9 Albumin/Globulin Ratio 1.2 [facility] Medical History Bilateral adhesive capsulitis of shoulders Encounter for well adult exam with abnormal findings Encounter for well adult exam with abnormal findings DISH (diffuse idiopathic skeletal hyperostosis) Hyperglycemia Tinea Vision disorder Plantar warts Actinic keratosis (~2014) Acne Osteoarthritis (~2009) Heel spur (~2018) Chronic back pain (~1974) Chicken pox Vertigo (~2010) Tinnitus (~1970) Hearing loss (~1970) Hemorrhoid (~1989) GERD (gastroesophageal reflux disease) (~1999) Seasonal allergies (~1950) Hypothyroidism (acquired) Coronary artery disease Surgical History Anesthesia History of knee surgery (~2010) Heel spur History of appendectomy History of tonsillectomy History of heart artery stent Family History Mother Hypertension History of heart disease Dementia Father Hypertension History of heart disease Sister Diabetes mellitus Grandfather History of heart disease Grandmother History of heart disease Social History household members: spouse Smoking Status: Never smoker Assessment & Plan Assessment and plan (1) Acute cholecystitis: Status: Acute Plan Drain 2 removed because it is output was minimal and serous Advance diet to regular Stop antibiotic
--- NOTE | 2023-08-26 11:08 | CM.DPC ---
DCP Cont: Per Surgeon, one of pt's drains removed due to low output and advancing pt's diet from liquid to general to see how pt tolerates and flatus but no bm yet but anticipated likely today and IV-Abx stopped. Pt to ambulate more and see how he tolerates advancing diet towards plan of discharge home with spouse when medically stable. Thu Owens MSW
[2023-08-26 15:00] VITALS: BP 156/71; PULSE 60; RESP 20; TEMP 36.2; O2SAT 96
[2023-08-26 19:58] VITALS: BP 169/79; PULSE 70; RESP 14; TEMP 36.3; O2SAT 96
[2023-08-26] MEDS: ATORVASTATIN 20 MG TABLET 40 MG PO (20:05)
--- NOTE | 2023-08-26 22:47 | PC.NURSE ---
Patient is alert and oriented. Breath sounds CTA with RA sat of 96%. HRR but BP elevated at 169/79; MD adjusting BP meds and patient restarted on home dose of Lisinopril this morning. Denied nausea but states he has a full feeling after eating today. BT present and is passing flatus but has not had a BM since 08/22. Is voiding without dysuria. Has been independent with mobility and reports using walker in halls although does not normally use an assistive device. CLAUDIO to right LQ of abdomen is intact and compressed; dressing around is CDI. Lap sites are dermabonded and well approximated with mild bruising around upper site. Bandaid dressing to 2nd CLAUDIO site on RLQ of abdomen is intact; CLAUDIO removed earlier today. Is not using SCD's as has been getting out of bed independently. Hoping to be able to DC in a.m. so IV site will not be restarted tonight. Stated he has some intermittent abdominal pain which radiates to right shoulder but not as intense as yesterday and at time of assessment pain was only 1/10; requests not to be awakened for scheduled Tylenol during the night. Fall risk score is moderate but alarm not activated as is steady on feet and able to get up without assistance.
[2023-08-27 05:00] VITALS: BP 174/80; PULSE 68; RESP 20; TEMP 36.3; O2SAT 93
[2023-08-27] MEDS: PANTOPRAZOLE DR 40 MG TABLET PO (06:10)
[2023-08-27] MEDS: LEVOTHYROXINE 50 MCG TABLET PO (06:10)
[2023-08-27] MEDS: ACETAMINOPHEN 325 MG TABLET 650 MG PO (06:10)
[2023-08-27 08:10] VITALS: BP 174/80; PULSE 68
[2023-08-27] MEDS: SODIUM CHLORIDE 0.9% FLUSH 10 ML IV (08:10)
[2023-08-27] MEDS: lisinopriL 10 MG TABLET PO (08:10)
[2023-08-27] MEDS: METOPROLOL ER 25 MG TABLET PO (08:10)
[2023-08-27] MEDS: POTASSIUM CHLORIDE 20 MEQ TAB 40 MEQ PO (09:45)
--- NOTE | 2023-08-27 11:27 | PM.DS.1 ---
History of Present Illness History of Present Illness Chief complaint: CHEST PAIN Narrative: The pt is a 72 yo with a hx of CAD and 3 stents placed in the past, most recently in 2019 and a clean stress test in Nov. last year who had a sudden onset of RUQ pain that radiated to the back around 2200 last night. He had this problem before but it went away by itself. He reports that the pt is sharp, constant, rated a 8 out of 10, assocaited with nausea and vomiting. There has been no fevers or chills, This morning patient's pain is improved. Seen by surgeon whom will perform lap zenobia tomorrow. Started on zosyn for possible, but not definitive cholecystitis until cholecystectomy performed. Patient denies recent chest pain, shortness of breath. He walks about 1.5 miles daily without palpitations or shortness of breath. Compliant with home medications. He reports a similar pain episode about a year ago which resolved spontaneously. Discharge Providers Provider Date of admission: 08/25/23 12:40 Discharge Date: 08/27/23 Primary care physician: Nolan Smith DO Consults: 08/23/23 06:27 Consult to Physician Routine Comment: Consulting Provider: Armen Mejia Reason for consultation: acute zenobia Has provider been notified: Yes Discharge provider: Yung Junior MD Summary Hospital Course Discharge Diagnosis: 1. Acute Cholecystitis, present on admission and improving -status post complicated laparoscopic cholecystectomy. Modifier 22. 2. CAD, present on admission and stable. - remained stable. 3. HTN, present on admission and stable. - remained stable. 4. Hypothyroidism, present on admission and stable. - continued home levothyroxine. Hospital Course: He is admitted with acute cholecystitis and seen by surgery. He underwent cholecystectomy which was relatively difficult procedure, please see operative notes. He had [address] postoperatively in 1 was removed on August 26 in the other on August 27. He is able to advance diet and had good pain control and Tylenol. He is stable for discharge on August 27. Status at Discharge Cognitive/behavioral status at discharge: oriented Functional status at discharge: independent ambulation Overall status at discharge: patient is back to baseline Time Spent with Patient Time spent: Greater than 30 minutes Exam Vital Signs (past 8 hours): - 08/27/23 05:00 08/27/23 05:00 08/27/23 08:10 Temperature 97.3 F L Pulse Rate 68 68 Respiratory Rate 20 Blood Pressure 174/80 H 174/80 H Pulse Oximetry 93 Oxygen Flow Rate 0 08/27/23 08:10 Temperature Pulse Rate 68 Respiratory Rate Blood Pressure 174/80 H Pulse Oximetry Oxygen Flow Rate Oxygen Delivery Method Room Air Oxygen Flow Rate 0 Narrative Exam Narrative: NAD, fluent speech Lungs clear with normal rate Heart regular Abdomen: Less tender in the right upper quadrant. No leg edema. Objective Imaging CT scan - abdomen: Radiologist's impression: Mild wall thickening of the patent flexure, which may be due to haustral contractions or mild colitis. Distended gallbladder with cholelithiasis. Early acute cholecystitis is a consideration. Correlate with right upper quadrant pain. Fecal debris within the small-bowel, usually indicating small intestinal bacterial overgrowth versus slow transit. US - abdomen: Radiologist's impression: . Distended gallbladder with multiple tiny dependent gallstones. No gallbladder wall thickening or pericholecystic fluid. Sonographic Bartholomew sign is positive. Findings are equivocal for acute cholecystitis. Recommend correlation with clinical findings. MRCP or nuclear medicine HIDA scan could be performed for further evaluation. 2. Diffusely increased hepatic echogenicity is nonspecific, but most commonly encountered in the setting of hepatic steatosis. However, other causes of hepatocellular disease are not excluded. Recommend clinical correlation. Labs 08/26/23 09:30 08/26/23 09:30 COUNT INCLUDES THE [facility] Medical History Bilateral adhesive capsulitis of shoulders Encounter for well adult exam with abnormal findings Encounter for well adult exam with abnormal findings DISH (diffuse idiopathic skeletal hyperostosis) Hyperglycemia Tinea Vision disorder Plantar warts Actinic keratosis (~2014) Acne Osteoarthritis (~2009) Heel spur (~2018) Chronic back pain (~1974) Chicken pox Vertigo (~2010) Tinnitus (~1970) Hearing loss (~1970) Hemorrhoid (~1989) GERD (gastroesophageal reflux disease) (~1999) Seasonal allergies (~1950) Hypothyroidism (acquired) Coronary artery disease Surgical History Anesthesia History of knee surgery (~2010) Heel spur History of appendectomy History of tonsillectomy History of heart artery stent Family History Mother Hypertension History of heart disease Dementia Father Hypertension History of heart disease Sister Diabetes mellitus Grandfather History of heart disease Grandmother History of heart disease Social History household members: spouse Smoking Status: Never smoker Discharge Assessment & Plan Assessment and Plan Assessment: 1. Acute Cholecystitis, present on admission and improving -status post complicated laparoscopic cholecystectomy. Modifier 22. 2. CAD, present on admission and stable. - remained stable. 3. HTN, present on admission and stable. - remained stable. 4. Hypothyroidism, present on admission and stable. - continued home levothyroxine. Plan of Treatment: Discharge with Tylenol as needed for pain, postoperative instructions given by surgery. They will arrange a follow up with surgery within the next 1-2 weeks. Discharge Plan Discharge Plan Patient Disposition: Home Provider Discharge Comment: No lifting greater than 20 lb for 2 weeks. Okay to remove the outer dressing and shower after 24 hours. Leave the Steri-Strips on until they start to peel off in 1-2 weeks. If you do not hear from [facility] within 3 days call [phone] to schedule follow up appointment with Dr. Hammonds. Discharge orders & Medications Prescriptions: New hydrocodone-acetaminophen 5-325 mg tablet 1 tab PO Q8H PRN (Reason: pain) Qty: 10 0RF Continued aspirin [Adult Aspirin Regimen] 81 mg tablet,delayed release (DR/EC) 81 mg PO DAILY fluticasone propionate [Flonase Allergy Relief] 50 mcg/actuation spray,suspension 1 spray NASAL DAILY metformin 500 mg tablet 500 mg PO BID Qty: 180 3RF nitroglycerin 0.4 mg tablet, sublingual See Rx Instructions .ROUTE .COMPLEX Qty: 25 0RF Dose Instruction: place 1 tablet under the tongue if needed every 5 to 15 MINUTES for chest pain for 3 doses IF NO RELIEF AFTER THIRD DOSE CALL PRESCRIBER OR 911. Rx Instructions: place 1 tablet under the tongue if needed every 5 to 15 MINUTES for chest pain for 3 doses IF NO RELIEF AFTER THIRD DOSE CALL PRESCRIBER OR 911. levothyroxine 50 mcg tablet See Rx Instructions .ROUTE .COMPLEX Qty: 90 3RF Dose Instruction: TAKE ONE TABLET BY MOUTH DAILY Rx Instructions: TAKE ONE TABLET BY MOUTH DAILY metoprolol succinate 25 mg tablet extended release 24 hr 25 mg PO BID omeprazole 20 mg capsule,delayed release(DR/EC) 20 mg PO DAILY lisinopril 10 mg tablet 10 mg PO DAILY All Day Allergy (cetirizine) 10 mg capsule 10 mg PO DAILY atorvastatin 40 mg tablet 40 mg PO BEDTIME Qty: 90 3RF hydrocortisone-acetic acid 1-2 % drops 2 drp otic (ear) TID PRN (Reason: Ear discomfort) Qty: 10 1RF Medication counseling provided by Pharmacist: No Follow up/Referrals: Nolan Smith, [Primary Care Provider] - Discharge Health Status Multidrug resistant organism: No MDRO Diet/Activity/Treatments Diet: Regular Skin/Wound/Dressing Care Report to your healthcare provider any signs of infection, such as:: chills, fever, increased pain, unusual drainage and unusual redness Visit Report/Discharge Packet Instructions: Fat-Restricted Diet, DI for Open Cholecystectomy Stand Alone Forms: Patient Portal/API, Stroke Signs & Symptoms Discharge Data Primary Care Provider: Nolan Smith
--- NOTE | 2023-08-27 12:11 | CM.DPC ---
DCP Discharge Home Per MD and Surgeon, pt's drains were removed and basic dressings and pt medically stable to d/c home today with outpt f/u with [facility] and no identified barrier to discharge. Per RN, spouse is bedside for d/c instructions and have some financial questions and referred to Patient Accounts for billing/financial questions and no further concerns for discharge home today. Plan: Patient to d/c home today via spouse POV and outpt f/u and no further SW needs at this time. [place] Arevalo
== END 2023-08-27 13:00 | disposition home or self-care (01) | DRG 446 ==
LOC: ED 01:40 → AC 06:34
PROVIDERS: Hospitalist; Surgery; Admitting Provider Internal Medicine; Emergency Provider Emergency Medicine; Family Provider Family Medicine; PCP Family Medicine; Referring Provider Emergency Medicine; Visit Provider Internal Medicine
PROC: 0FT44ZZ Resection of Gallbladder, Percutaneous Endoscopic Approach (ICD-10-PCS; CPT 47562; principal; 2023-08-24 15:30)
DX: K80.00 Calculus of gallbladder with acute cholecystitis without obstruction (principal); I25.10 Atherosclerotic heart disease of native coronary artery without angina pectoris; I10 Essential (primary) hypertension; E03.9 Hypothyroidism, unspecified; K82.A1 Gangrene of gallbladder in cholecystitis; R73.03 Prediabetes; K21.9 Gastro-esophageal reflux disease without esophagitis; Z95.5 Presence of coronary angioplasty implant and graft
CPT/HCPCS: 36415; 74177; 76705; 80053; 81003; 81015; 82550; 82962; 83690; 83735; 84484; 85025; 93005; 96374; 96375; 96376; 99284; 99285; G0378; C9113; J0136; J0690; J1100; J1170; J1200; J2405; J2543; J2704; J2930; J3010; Q9967

== ENCOUNTER → 2023-10-17 07:06 | Outpatient (CLI) | payer MEDICARE, OTHER, SELFPAY ==
[2023-08-23 06:34] VITALS: BMI 30.9
[2023-10-17 07:57] LABS: Hemoglobin A1C% w Est Avg Glu 5.9 % (4.0-6.0)
[2023-10-17 08:11] LABS: Alanine Aminotransferase 22 IU/L (<50); Albumin Globulin Ratio 1.5 (1.0-2.8); Alkaline Phosphatase 67 U/L (38-126); Aspartate Aminotransferase 29 IU/L (17-59); BUN Creatinine Ratio 14.7 (6-22); Bilirubin Total 0.6 mg/dL (0.2-1.3); Blood Urea Nitrogen 10 mg/dL (9-20); Calcium 9.5 mg/dL (8.4-10.2); Carbon Dioxide 32 mmol/L (22-32); Chloride 103 mmol/L (98-107); Cholesterol 124 mg/dL (140-199); Estimated Glomerular Filt Rate > 60 mL/min (>60); Globulin 2.6 g/dL (1.7-4.1); Glucose 111 mg/dL (80-110); HDL Cholesterol 29 mg/dL (40-60); HEMOLYSIS < 15 (0-50); LDL Cholesterol Calculated 53 mg/dL (<100); Potassium 4.3 mmol/L (3.4-5.1); Sodium 140 mmol/L (137-145); Total Protein 6.6 g/dL (6.3-8.2); Triglycerides 212 mg/dL (35-150)
[2023-10-17 08:20] LABS: Free T4, Direct Thyroxine 0.85 ng/dL (0.78-2.19)
[2023-10-17 08:34] LABS: TSH w/ Reflex to FT4 1.91 uIU/mL (0.47-4.68)
== END ==
LOC: LAB 07:07
PROVIDERS: Family Provider Family Medicine; PCP Family Medicine; Referring Provider Family Medicine; Visit Provider Family Medicine
DX: R73.9 Hyperglycemia, unspecified (principal); E78.5 Hyperlipidemia, unspecified; E03.9 Hypothyroidism, unspecified
CPT/HCPCS: 36415; 80053; 80061; 83036; 84439; 84443

== ENCOUNTER → 2024-05-30 08:17 | Outpatient (CLI) | payer MEDICARE, OTHER, SELFPAY ==
[2023-08-23 06:34] VITALS: BMI 30.9
[2024-05-30 09:42] LABS: Alanine Aminotransferase 23 IU/L (<50); Albumin Globulin Ratio 1.7 (1.0-2.8); Alkaline Phosphatase 65 U/L (38-126); Aspartate Aminotransferase 26 IU/L (17-59); BUN Creatinine Ratio 15.3 (6-22); Bilirubin Total 0.5 mg/dL (0.2-1.3); Blood Urea Nitrogen 11 mg/dL (9-20); Calcium 9.2 mg/dL (8.4-10.2); Carbon Dioxide 28 mmol/L (22-32); Chloride 103 mmol/L (98-107); Cholesterol 124 mg/dL (140-199); Estimated Glomerular Filt Rate > 60 mL/min (>60); Globulin 2.4 g/dL (1.7-4.1); Glucose 116 mg/dL (80-110); HDL Cholesterol 28 mg/dL (40-60); HEMOLYSIS < 15 (0-50); LDL Cholesterol Calculated 56 mg/dL (<100); Potassium 4.2 mmol/L (3.4-5.1); Sodium 137 mmol/L (137-145); Total Protein 6.4 g/dL (6.3-8.2); Triglycerides 200 mg/dL (35-150)
== END ==
PROVIDERS: Family Provider Family Medicine; PCP Family Medicine; Referring Provider Nurse Practitioner; Visit Provider Nurse Practitioner
DX: E78.5 Hyperlipidemia, unspecified (principal); I25.10 Atherosclerotic heart disease of native coronary artery without angina pectoris
CPT/HCPCS: 36415; 80053; 80061